=== PATIENT | female | born 1945 | race Caucasian/White ===

== ENCOUNTER 2020-04-14 11:11 | Outpatient (CLI) | payer MEDICARE, BC, SELFPAY ==
[2020-04-14 11:53] LABS: Basophils Absolute Auto 0.1 K/mm3 (0.0-0.1); Basophils Percent Auto 0.7 % (0.2-1.2); Eosinophils Absolute Auto 0.2 K/mm3 (0-0.3); Eosinophils Percent Auto 2.4 % (0-4.4); Hemoglobin 13.5 g/dL (12.0-15.0); Immature Granulocyte Absolute 0.01 K/mm3 (0.00-0.031); Immature Granulocyte Percent A 0.1 % (0-0.5); Lymphocytes Absolute Auto 2.89 K/mm3 (0.9-3.2); Lymphocytes Percent Auto 40.1 % (18.3-44.2); Mean Corpuscular HGB Conc 32.9 g/dl (32-36); Mean Corpuscular Hemoglobin 30.2 pg (26-34); Mean Corpuscular Volume 91.7 fl (80-100); Mean Platelet Volume 9.7 fl (7.4-10.4); Monocytes Absolute Auto 0.7 K/mm3 (0.1-0.6); Monocytes Percent Auto 9.4 % (2.6-8.5); Neutrophils Absolute Auto 3.4 K/mm3 (1.3-6.7); Neutrophils Percent Auto 47.3 % (45.5-73.1); Platelet Count Result 237 k/mm3 (150-375); Red Blood Count 4.47 M/mm3 (4.2-5.4); Red Cell Distribution Width 12.8 % (11.5-14.5); White Blood Count 7.2 K/mm3 (4.5-10.0)
[2020-04-14 12:02] LABS: Hemoglobin A1C 5.4 % (<5.7)
[2020-04-14 12:06] LABS: Alanine Aminotransferase 17 U/L (4-35); Albumin Level 4.2 g/dL (3.5-5.1); Alkaline Phosphatase 63 U/L (38-126); Anion Gap 5 mmol/L (8-16); Aspartate Amino Transferase 23 U/L (14-36); Bilirubin,Total 0.5 mg/dL (0.2-1.3); Blood Urea Nitrogen 25 mg/dL (7-17); Calcium 10.1 mg/dL (8.4-10.2); Carbon Dioxide 29 mmol/L (22-30); Chloride 106 mmol/L (98-107); Cholesterol 128 mg/dL (0-200); Estimated Glomerular Filt Rate 54; Glucose 98 mg/dL (65-105); HDL Direct 45 mg/dL; Potassium 4.3 mmol/L (3.4-5.0); Sodium 140 mmol/L (137-145); Triglycerides 156 mg/dL (<150)
[2020-04-14 12:52] LABS: LDL Cholesterol Direct < 30 mg/dL
[2020-04-18 10:35] LABS: Vitamin D 1,25 (OH)2 Total 47 pg/mL (18-72); Vitamin D2 1,25 (OH)2 <8 pg/mL; Vitamin D3 1,25 (OH)2 47 pg/mL
== END 2020-04-14 11:12 | disposition home or self-care (01) ==
DX: E55.9 Vitamin D deficiency, unspecified (principal); I10 Essential (primary) hypertension; E78.5 Hyperlipidemia, unspecified; R73.9 Hyperglycemia, unspecified
CPT/HCPCS: 36415; 80053; 80061; 82652; 83036; 84443; 85025

== ENCOUNTER → 2020-04-29 08:36 | Outpatient (CLI) | payer MEDICARE, BC, SELFPAY ==
--- NOTE | ~2020-04-29 | CT_ITS ---
EXAMINATION: CT sinus wo con EXAM DATE: 04/29/2020 09:01 INDICATION: Chronic frontal sinusitis. History of sinus surgery. TECHNIQUE: Spiral CT of the sinuses was acquired in the axial plane. Coronal and sagittal reformatte d images were also reviewed. The dose-length product (DLP) for this examination was 257.01 mGy-cm. Iterative reconstruction (ASIR) was used as dose reduction technique. There is no prior study for co mparison. FINDINGS: Congenitally small frontal sinuses. Ethmoidectomies and large bilateral maxillary sinus w indows. Right-sided, and possible left-sided middle turbinectomies. The sinuses are well aerated. T here is no sinus wall thickening. There is minimal nasal septal deviation. The mastoid air cells and middle ears are well aerated. External auditory canals are patent. Bilateral cataract surgery . Soft tissues are unremarkable. IMPRESSION: 1. Surgical changes. 2. Clear sinuses. Reviewed, dictated and finalized at location A.
== END ==
DX: M48.07 Spinal stenosis, lumbosacral region (principal)
CPT/HCPCS: 70486

== ENCOUNTER → 2020-12-02 15:10 | Outpatient (CLI) | payer MEDICARE, BC, SELFPAY ==
--- NOTE | ~2020-12-02 | MM_ITS ---
EXAMINATION: MM screening rosales BI w jenny HISTORY: Screening mammogram TECHNIQUE: Craniocaudal and mediolateral oblique 3-D tomosynthesis images were obtained and synthetic 2-D images were generated. CAD analysis was submitted and interpreted. COMPARISON: No prior mammogram is available for comparison at this institution. BREAST PARENCHYMAL COMPOSITION: The breasts are almost entirely fatty. FINDINGS: There is no evidence of suspicious mass, calcification, or architectural distortion to sugg est malignancy in either breast. There has been no suspicious interval change. IMPRESSION: 1. No mammographic evidence of malignancy. 2. Recommend routine screening mammography in one year. BI-RADS Category 1: Negative Reviewed, dictated and finalized at location A.
== END ==
PROVIDERS: PCP Internal Medicine; Visit Provider Internal Medicine
DX: Z12.31 Encounter for screening mammogram for malignant neoplasm of breast (principal)
CPT/HCPCS: 77063; 77067

== ENCOUNTER → 2021-02-07 15:15 | Outpatient (CLI) | payer MEDICARE, BC, SELFPAY ==
--- NOTE | ~2021-02-07 | DEXA_ITS ---
Bone Density Report Name: AYE ROMERO Age: 75 Sex: Female Ethnicity: White Date of : 1945 Indication: postmenopausal; screening for osteoporosis; height loss; Referring Provider: AmeliaJing Study: Bone densitometry was performed. Exam Date: February 07, 2021 Accession number: [id number] Bone Density: Region BMD T-score Z-score Classification AP Spine (L1-L4) 0.949 -0.9 1.6 Normal Femoral Neck (Left) 0.587 -2.4 -0.2 Osteopenia Total Hip (Left) 0.821 -1.0 0.9 Normal Femoral Neck (Right) 0.551 -2.7 -0.5 Osteoporosis Total Hip (Right) 0.746 -1.6 0.2 Osteopenia Total Hip Mean 0.784 -1.3 0.6 Osteopenia World Health Organization criteria for BMD impression classify patients as: Normal (T-score at or above -1.0), Osteopenia (T-score between -1.0 and -2.5), or Osteoporosis (T-score at or below -2.5). 10-year Fracture Risk: FRAX not reported because: Some T-score for Spine Total or Hip Total or Femoral Neck at or below -2.5 Clinical Information Provided by Patient: Has used the following medications: Vitamin D Patient maximum height was 65 Menopause Age: 41 No regular weight bearing exercise Does not regularly consume dairy products Onset of menses at age 10 Number of children 1 Impression: The patient has osteoporosis, based on the Right Femoral Neck T-score. Discussion: INCREASED RISK OF FRACTURE. BONE DENSITY IS UNDESIRABLY LOW AT ONE OR MORE SKELETAL SITES, CONSISTENT WITH POSTMENOPAUSAL OSTEOPOROSIS. This patient's lowest T-score meets the World Health Organization's (WHO) criteria for osteoporosis at one or more sites (T-score -2.5 or below). In untreated patients, the risk of osteoporotic fracture increases approximately two-fold for each 1.0 SD decrease in T-score. Low bone density is not the only risk factor for fracture; also consider factors such as patient's age, frailty or poor health, risk of falling, risk of injury, previous osteoporotic fracture, family history of osteoporosis, cigarette smoking, low body weight, etc. Not everyone with low bone mineral density has osteoporosis; osteomalacia and other metabolic bone disorders should also be considered. Patients who have osteoporosis should be evaluated for specific diseases and conditions (secondary causes) that may cause or contribute to bone loss. The [place] [employer]ocrinologists (AACE) and National Osteoporosis Foundation (NOF) recommend pharmacologic intervention for all postmenopausal women whose T-score is in this range. The patient should follow a healthful lifestyle (good nutrition with adequate calcium and vitamin D, and appropriate weight-bearing exercise). Follow-Up: Consider a repeat BMD and Vertebral Fracture Assessment (VFA) exam in 2 years or sooner if medically necessary, to reassess this patien
== END ==
PROVIDERS: PCP Internal Medicine; Visit Provider Internal Medicine
DX: Z78.0 Asymptomatic menopausal state (principal); M85.852 Other specified disorders of bone density and structure, left thigh; M85.851 Other specified disorders of bone density and structure, right thigh; M81.0 Age-related osteoporosis without current pathological fracture
CPT/HCPCS: 77080

== ENCOUNTER 2022-04-25 15:10 | Outpatient (CLI) | payer MEDICARE, BC, SELFPAY ==
--- NOTE | ~2022-04-25 | US_ITS ---
EXAMINATION: US retroperitoneal comp DATE: 04/25/2022 16:12 INDICATION: KIDNEY STONE ON LEFT SIDE TECHNIQUE: Multiple grayscale and Doppler ultrasound images of the kidneys were obtained. COMPARISON: None. FINDINGS: The right kidney is surgically absent The left kidney measures 13.1 x 6.3 x 4.6 cm. The left kidney d emonstrates normal parenchymal echogenicity. There is a cortical scarring in the left kidney. 1.1 cm echogenic shadowing focus in the left kidney lower pole. 1.2 cm simple left kidney midpole cyst. Ther e is no hydronephrosis. The bladder is normal. IMPRESSION: Status post right nephrectomy. Left cortical scarring. Left nephrolithiasis. Reviewed, dictated and finalized at location K.
== END 2022-04-25 15:11 | disposition home or self-care (01) ==
PROVIDERS: PCP Internal Medicine; Visit Provider Urology
DX: N20.0 Calculus of kidney (principal); Z90.5 Acquired absence of kidney
CPT/HCPCS: 76770

== ENCOUNTER → 2022-07-16 14:19 | Outpatient (CLI) | payer MEDICARE, BC, SELFPAY ==
--- NOTE | ~2022-07-16 | XR_ITS ---
EXAMINATION: XR lumbar spine 2-3V DATE: 07/16/2022 15:01 INDICATION: Chronic low back pain TECHNIQUE: Anteroposterior and lateral views of the lumbar spine, and cone-down lateral view of the l umbosacral junction were obtained. COMPARISON: None. FINDINGS: There are 33 degrees of lumbar dextroscoliosis. Bone alignment is normal. There is no fract ure. There is severe loss of intervertebral disc space height and L3-4. There is severe loss of inter vertebral disc space height on the left and L1-2 and L2-3 and on the right at L4-5. The vertebral bod y heights are maintained. There is moderate facet joint osteoarthritis of the lower lumbar spine. Randa gical clips in the right upper quadrant are likely from prior cholecystectomy. IMPRESSION: 1. Dextroscoliosis and moderate spondylosis of the lumbar spine. Reviewed, dictated and finalized at location F.
== END ==
PROVIDERS: PCP Internal Medicine; Visit Provider Internal Medicine
DX: M54.42 Lumbago with sciatica, left side (principal); M54.41 Lumbago with sciatica, right side; G89.29 Other chronic pain; M47.896 Other spondylosis, lumbar region
CPT/HCPCS: 72100

== ENCOUNTER 2023-05-26 13:56 | Emergency (ER) | payer MEDICARE, BC, SELFPAY ==
--- NOTE | 2023-05-26 13:58 | ED.URI ---
HPI - URI/Sore Throat General Chief Complaint: Upper Respiratory Infection Stated Complaint: Cough/Congestion/Sore Throat Time Seen by Provider: 05/26/23 14:24 Source: patient and RN notes reviewed Mode of arrival: ambulatory Limitations: no limitations History of Present Illness HPI Narrative: 69-year-old female presents with concern for cough, chest congestion, sore throat for 6 days. She has not taken any zghn-quq-ywexfan medications for her symptoms. She denies fever, body aches, reports chills. MD elicited complaint: cough Related Data Home Medications Medication Instructions Recorded Confirmed atorvastatin 20 mg tablet mg 05/26/23 buspirone 30 mg tablet mg 05/26/23 citalopram 20 mg tablet mg 05/26/23 esomeprazole magnesium 40 mg mg 05/26/23 capsule,delayed release ferrous sulfate 325 mg (65 mg mg 05/26/23 iron) tablet (FeroSul) fluticasone propionate 50 intranasal 05/26/23 mcg/actuation nasal spray,suspension losartan 100 mg tablet mg 05/26/23 mirabegron 25 mg tablet,extended mg PO 05/26/23 release 24 hr (Myrbetriq) montelukast 10 mg tablet mg 05/26/23 tafluprost (PF) 0.0015 % eye drops drp 05/26/23 in a dropperette tramadol 50 mg tablet mg 05/26/23 verapamil 120 mg tablet,extended mg PO 05/26/23 release Allergies Allergy/AdvReac Type Severity Reaction Status Date / Time acetaminophen [From Lortab] Allergy Gastrointestinal Verified 05/26/23 14:37 Upset codeine Allergy Gastrointestinal Verified 05/26/23 14:37 Upset erythromycin base Allergy Rash Verified 05/26/23 14:37 hydrocodone [From Lortab] Allergy Gastrointestinal Verified 05/26/23 14:37 Upset levofloxacin [From Levaquin] Allergy Palpitation Verified 05/26/23 14:37 s sulfamethoxazole Allergy Rash Verified 05/26/23 14:37 [From Bactrim] trimethoprim [From Bactrim] Allergy Rash Verified 05/26/23 14:37 Review of Systems Review of Systems: CONSTITUTIONAL: Reports malaise, chills. Denies sweats, or fever. EYES: Denies visual changes, redness, or discharge. ENT: Reports rhinorrhea, congestion, and sore throat. CARDIOVASCULAR: Denies chest pain, palpitations, or edema. RESPIRATORY: Reports cough. Denies dyspnea. GASTROINTESTINAL: Denies abdominal pain, nausea, vomiting, diarrhea SKIN: Denies rash or itching. MUSCULOSKELETAL: Denies myalgia. NEUROLOGIC: Denies headache. All systems reviewed & are unremarkable except as noted in HPI and below PMFSH Comments At time of signature, agree with nursing past medical, surgical, social and family history. There is no relevant family history pertinent to the presenting complaint Exam Narrative: GENERAL: Well-appearing, well-nourished, and in no acute distress. HEAD: Normocephalic EYES: PERRLA, conjunctivae clear ENT: Nares clear, turbinates edematous and erythematous, clear discharge. Mucous membranes moist. TM pearly aguilera with dull light reflex bilaterally; no tragal tenderness. Oropharynx not erythematous without lesions. Tonsils not enlarged and without exudate, no drooling, no hoarseness, no trismus, uvula midline. NECK: Supple. No lymphadenopathy CHEST: Clear to auscultation, breath sounds equal. No wheezing, rhonchi, rales, or stridor. No respiratory distress, speaks in full sentences. HEART: Regular rate and rhythm. No murmur heard. SKIN: Warm, dry, no rash. NEURO: Alert and oriented x3. PSYCH: Normal mood and affect Course Course Emergency Course: Patient is aware of diagnosis, understands and agrees to treatment plan. Anticipatory guidance given. Patient agrees to follow-up as directed and is aware of reasons to seek care at the emergency department. Portions of this record may have been created with voice recognition software Level of Care: Express Care Visit Vital Signs Vital signs: Reviewed. MDM - URI/Sore Throat MDM Narrative Medical decision making narrative: Differential diagnosis considered: Fox virus, strep p
[2023-05-26 14:06] VITALS: BP 125/67; PULSE 74; RESP 16; TEMP 36.7; O2SAT 95
== END 2023-05-26 14:41 | disposition home or self-care (01) ==
PROVIDERS: Emergency Provider Nurse Practitioner; PCP Internal Medicine
DX: J40 Bronchitis, not specified as acute or chronic (principal); Z20.822 Contact with and (suspected) exposure to COVID-19
CPT/HCPCS: 87081; 87426; 87804; 87880; 99213; G0463

== ENCOUNTER 2023-12-19 13:26 | Outpatient (CLI) | payer MEDICARE, BC, SELFPAY ==
--- NOTE | ~2023-12-19 | XR_ITS ---
XR abdomen/kub 1V 12/19/2023 13:48 Indication: Follow-up kidney stones Procedure: Follow-up kidney stone Comparison: KUB Findings: There are left renal stones. There are cholecystectomy clips. Bowel gas pattern nonobstruct rafiq. There are pelvic phleboliths. Moderate colonic fecal loading. Severe lumbar spondylosis with dex troscoliosis of the lumbar spine. Impression: 1: Left nephrolithiasis. Reviewed, dictated and finalized at location B. TENDER Impression: 1: Left nephrolithiasis.
== END 2023-12-19 13:27 | disposition home or self-care (01) ==
PROVIDERS: PCP Internal Medicine; Visit Provider Nurse Practitioner Family
DX: N20.0 Calculus of kidney (principal)
CPT/HCPCS: 74018

== ENCOUNTER 2024-01-08 14:18 | Outpatient (CLI) | payer MEDICARE, BC, SELFPAY ==
--- NOTE | ~2024-01-08 | CT_ITS ---
CORRECTED REPORT corrected order in [facility] 01/12/24 This report was recreated on 01/12/24. Original report was CHOOL TEACHER'S ASSISTANT EXAMINATION: CT abdomen wo/w con DATE: 01/08/2024 15:29 INDICATION: Benign lipomatous neoplasm of kidney. TECHNIQUE: Computed tomography (CT) of the abdomen was performed without and with 100 mL Omnipaque 350 intravenous contrast. Automated exposure control and iterative reconstruction technique were employed. The dose-length product was 922.62 mGy-cm. COMPARISON: None. FINDINGS: The visualized portions of the lung bases demonstrate mild atelectasis. No pleural effusion. The heart size is normal. No pericardial effusion. There is a large sliding hiatal hernia. The liver is normal. There are changes of cholecystectomy. The spleen, pancreas, and adrenal glands are normal. Right kidney is absent. There are cysts in left kidney measuring up to 11 mm. There is a 6 mm stone in left kidney. There is a 4.5 x 1.7 cm staghorn calculus in left kidney. There are no dilated loops of bowel. There are no pathologically enlarged lymph nodes. There is no free intraperitoneal fluid. There is lumbar dextroscoliosis and severe spondylosis. IMPRESSION: 1. Right nephrectomy. 2. Staghorn calculus in left kidney. 3. Large sliding hiatal hernia. Reviewed, dictated and finalized at location A. CHOOL TEACHER'S ASSISTANT MTDD
[2024-01-08 15:04] LABS: Estimated Glomerular Filt Rate 43
== END 2024-01-08 14:19 | disposition home or self-care (01) ==
PROVIDERS: PCP Internal Medicine
DX: D17.71 Benign lipomatous neoplasm of kidney (principal); N20.0 Calculus of kidney; K44.9 Diaphragmatic hernia without obstruction or gangrene; Z90.5 Acquired absence of kidney
CPT/HCPCS: 74170; 74178; Q9967

== ENCOUNTER 2024-02-07 11:56 | Emergency (ER) | payer MEDICARE, BC, SELFPAY ==
[2024-02-07 12:52] VITALS: BP 131/64; PULSE 69; RESP 16; TEMP 37; O2SAT 96
--- NOTE | 2024-02-07 14:23 | ED_ITS ---
HPI - URI/Sore Throat General Chief Complaint: Upper Respiratory Infection Stated Complaint: Headache/Sore Throat/Congestion Time Seen by Provider: 02/07/24 14:15 Source: patient, family, RN notes reviewed and old records reviewed Mode of arrival: ambulatory Limitations: no limitations History of Present Illness HPI Narrative: 78 year old female who presents to [facility] care with complaints of cough congestion and body aches with some low grade temp and headache for a few days. Patient 's daughter with her at bedside. Patient reports that she had a positive home covid test. Patient states that she has been taking Tylenol for her symptoms doesn't take Ibuprofen only has one kidney. Patient reports no acute dyspnea, no nausea or vomiting or any diarrhea. MD elicited complaint: cough, rhinorrhea, nasal congestion and other (body aches) Pertinent past history: other (one kidney) Onset (ago): day(s) (2-3) Severity: mild Description of mucous: clear Able to tolerate fluids by mouth: Yes Treatments prior to arrival: acetaminophen Related Data Home Medications ?Medication ?Instructions ?Recorded ?Confirmed ?Last Taken ?Type atorvastatin 20 mg tablet mg 05/26/23 Unknown History buspirone 30 mg tablet mg 05/26/23 Unknown History citalopram 20 mg tablet mg 05/26/23 Unknown History esomeprazole magnesium 40 mg mg 05/26/23 Unknown History capsule,delayed release ferrous sulfate 325 mg (65 mg mg 05/26/23 Unknown History iron) tablet (FeroSul) fluticasone propionate 50 intranasal 05/26/23 Unknown History mcg/actuation nasal spray,suspension losartan 100 mg tablet mg 05/26/23 Unknown History mirabegron 25 mg tablet,extended mg PO 05/26/23 Unknown History release 24 hr (Myrbetriq) montelukast 10 mg tablet mg 05/26/23 Unknown History tafluprost (PF) 0.0015 % eye drops drp 05/26/23 Unknown History in a dropperette tramadol 50 mg tablet mg 05/26/23 Unknown History verapamil 120 mg tablet,extended mg PO 05/26/23 Unknown History release albuterol sulfate 90 mcg/actuation inhalation 02/07/24 Unknown History aerosol inhaler (Ventolin HFA) dicyclomine 10 mg capsule mg 02/07/24 Unknown History glipizide 5 mg tablet mg 02/07/24 Unknown History mirabegron 50 mg tablet,extended mg PO 02/07/24 Unknown History release 24 hr (Myrbetriq) Allergies Allergy/AdvReac Type Severity Reaction Status Date / Time acetaminophen (From Lortab) Allergy Gastrointestinal Verified 02/07/24 13:43 Upset codeine Allergy Gastrointestinal Verified 02/07/24 13:43 Upset erythromycin base Allergy Rash Verified 02/07/24 13:43 hydrocodone (From Lortab) Allergy Gastrointestinal Verified 02/07/24 13:43 Upset levofloxacin (From Levaquin) Allergy Palpitation Verified 02/07/24 13:43 s sulfamethoxazole (From Allergy Rash Verified 02/07/24 13:43 Bactrim) trimethoprim (From Bactrim) Allergy Rash Verified 02/07/24 13:43 Review of Systems Review of Systems: CONSTITUTIONAL: Reports some malaise, chills, sweats, or fever. EYES: Denies visual changes, redness, or discharge. ENT: Reports rhinorrhea, congestion, sinus pain, no otalgia and no sore throat. CARDIOVASCULAR: Denies chest pain, palpitations, or edema. RESPIRATORY: Reports cough.? Denies dyspnea. GASTROINTESTINAL: Denies abdominal pain, nausea, vomiting, diarrhea SKIN: Denies rash or itching. MUSCULOSKELETAL:Reports myalgia. NEUROLOGIC: Reports headache. All systems reviewed & are unremarkable except as noted in HPI and below PMFSH Past Medical History Medical History (Updated 02/09/24 @ 18:24 by Jessica Rodriguez NP) CAD (coronary artery disease) Dysplasia of one kidney Diabetes GERD (gastroesophageal reflux disease) Anxiety and depression Arthritis Hyperlipidemia Hypertension Social History Social History (Updated 02/09/24 @ 18:25 by Jessica Rodriguez NP) Smoking status: Never smoker Alcohol intake: never Substance use type: does not use Gender identity (if verbalized by the patient): Female Comments At time of signature, agree with nursing past medical, surgical, social and family history. There is no relevant family history pertinent to the presenting complaint Exam Narrative: GENERAL: Well-appearing, well-nourished, and in no acute distress. HEAD: Normocephalic EYES: PERRLA, conjunctivae clear ENT: Nares clear, turbinates edematous and erythematous, clear discharge. Mucous membranes moist. TM pearly aguilera with dull light reflex bilaterally; no tragal tenderness. Oropharynx erythematous without lesions. Tonsils not enlarged and without exudate, no drooling, no hoarseness, no trismus, uvula midline.post nasal drainage post nasal discharge NECK: Supple. No lymphadenopathy CHEST: Decreased breath sounds on auscultation, breath sounds equal. No wheezing, rhonchi, rales, or stridor. No respiratory distress, speaks in full sentences.dry cough, SAO2 96% on room air HEART: Regular rate and rhythm. No murmur heard. SKIN: Warm, dry, no rash. NEURO: Alert and oriented x3. PSYCH: Normal mood and affect Course Course Emergency Course: Patient is aware of diagnosis, understands and agrees to treatment plan.? Anticipatory guidance given.? Patient agrees to follow-up as directed and is aware of reasons to seek care at the emergency department. Portions of this record may have been created with voice recognition software Level of Care: Express Care Visit Vital Signs Vital signs: Vital Signs Temperature 37.0 C 02/07/24 12:52 Pulse Rate 69 02/07/24 12:52 Respiratory Rate 16 02/07/24 12:52 Blood Pressure 131/64 02/07/24 12:52 Pulse Oximetry 96 02/07/24 12:52 Temperature 37.0 C 02/07/24 12:52 Pulse Rate 69 02/07/24 12:52 Respiratory Rate 16 02/07/24 12:52 Blood Pressure 131/64 02/07/24 12:52 Pulse Oximetry 96 02/07/24 12:52 Oxygen Delivery Room Air 02/07/24 13:20 Reviewed MDM - URI/Sore Throat MDM Narrative Medical decision making narrative: Differential diagnosis considered: Fox virus, strep pharyngitis, allergic rhinitis, upper respiratory tract infection, sinusitis, rhinosinusitis, nasopharyngitis. viral pharyngitis, otitis media, otitis externa, pneumonia, bronchitis, viral cough syndrome, viral syndrome, and influenza.? Exam findings show no acute concerns or changes; patient is non-toxic appearing and is in no distress.? Patient is appropriate for outpatient treatment and follow-up. Differential Diagnosis Differential diagnosis: Likely upper respiratory infection, viral infection, influenza and other (COVID) Medical Records Attestation: I reviewed the patient's medical records. Lab Data Attestation: I reviewed the patient's lab results. Lab results narrative: Influenza A negative, Influenza B positive, COVID antigen positive Labs: Lab Results 02/07/24 Range/Units 12:53 POC Influenza A Ag Negative (Negative) POC Influenza B Ag Positive (Negative) POC SARS CoV-2 Ag Positive (Negative) reviewed Critical Care Time Critical Care Time Critical Care Time: No Discharge Plan Discharge Clinical Impression: Influenza, COVID-19 Patient Disposition: Home, Self-Care Condition: Stable Instructions: Influenza (ED), How to Recover from COVID-19 at Home (ED) Additional Instructions: Increase fluids especially juices and water [id number] cough and cold medicine of your choice for your symptoms Zyrtec Claritin or Lavern daily include Coricidin brand decongestant Cough tablets as directed for cough--do not bite, chew or suck on--swallow whole Continue your inhaler/nebulizer as directed heat to the face 20-30 minutes 4-6 times a day for pain Salt water gargles, throat lozenges or throat sprays as desired monitor for any fevers must quarantine until you are fever free for 24 hours without use of Tylenol If your symptoms persist, change or worsen significantly before you can contact your personal physician then please, without delay, go to the emergency department for further evaluation. Follow-up with PCP in 7-10 days or sooner if needed Follow up with PCP soon in regards to your blood pressure which is elevated above threshold for referral. Blood pressure above 120/80 may indicate pre-hypertension.131/64 COVID-19 DISCHARGE The following recommendations have been made by the CDC and local Health Departments, regarding COVID-19: Those individuals with mild cases of COVID-19 can generally be discontinued from isolation, 5 days AFTER the onset of symptoms AND the resolution of fever for 24hrs (without the use of fever-reducing medications) Those individuals who were asymptomatic, and tested positive, are discontinued from isolation 10 days AFTER their first positive COVID-19 test Those individuals with SEVERE to CRITICAL illness or immunocompromised diseases may require up to 20 days of home isolation or hospitalization Majority of mild to moderate cases can be treated at home, without hospitalization or prescription medications You do not need a negative test result to return to work/school, assuming the above recommendations have been met and you are not symptomatic. At this time, return to work/school notes will not be provided. Guidelines from the local Health Department, CDC, and workplace are expected to be followed. All individuals in the household need to remained quarantined for up to 14 days if asymptomatic OR 10 days after the start of symptoms. Everyone in the home DOES NOT require testing, they are presumed positive and should quarantine as directed. Treating symptoms for mild to moderate cases may include: Tylenol, Flonase/nasal spray, OTC cold/flu medications recommended from your provider or any necessary prescription medications provided at your visit or from your PCP IF YOU TESTED NEGATIVE If you are symptomatic with reason to believe you have COVID-19, there is a high possibility your rapid test may not have detected the virus. Rapid testing is dependent on timing and viral load and may have a false- negative reading You should follow appropriate guidelines regarding quarantine, hand washing, mask wearing, and social distancing You may be sent for PCR testing as an outpatient to the [facility] site Common Adult Symptoms: Fever/chills Cough Shortness of breath Fatigue, muscle aches Headache Loss of taste/smell Sore throat, congestion, runny nose GI symptoms (nausea, vomiting, diarrhea) Common Pediatric Symptoms Cough Fever GI symptoms (diarrhea, upset stomach, nausea, vomiting) Symptoms may differ in severity however, most cases do not require hospitalization. WHEN TO SEEK ER EVALUATION/TREATMENT Severe/persistent shortness of breath or difficulty breathing Elevated, persistent fevers without resolution with fever-reducing medications Chest pain Extreme fatigue/lethargy Complications of pre-existing disease Patient Language: German Prescriptions: New benzonatate 200 mg capsule 200 mg PO TID PRN (Reason: cough) Qty: 20 0RF Rx Instructions: for acute cough No Action verapamil 120 mg tablet extended release PO atorvastatin 20 mg tablet tramadol 50 mg tablet citalopram 20 mg tablet buspirone 30 mg tablet ferrous sulfate [FeroSul] 325 mg (65 mg iron) tablet esomeprazole magnesium 40 mg capsule,delayed release(DR/EC) montelukast 10 mg tablet losartan 100 mg tablet fluticasone propionate 50 mcg/actuation spray,suspension INTRANASAL tafluprost (PF) 0.0015 % dropperette Myrbetriq 25 mg tablet extended release 24 hr PO albuterol sulfate [Ventolin HFA] 90 mcg/actuation HFA aerosol inhaler INHALATION dicyclomine 10 mg capsule glipizide 5 mg tablet mirabegron [Myrbetriq] 50 mg tablet extended release 24 hr PO Follow-up/Referrals: Amelia,MD Jing [Primary Care Provider] - Time of Disposition: 14:37 Quality Kina Coma Scale Eyes: Open Verbal: Oriented and Alert Motor: Follows Commands Kina Coma Total Score: 15
[2024-02-07 14:37] LABS: EDCOVIDSCREEN Positive (Negative); EDINFLUASCREEN Negative (Negative); EDINFLUBSCREEN Positive (Negative)
== END 2024-02-07 14:39 | disposition home or self-care (01) ==
PROVIDERS: Emergency Provider Registered Nurse; PCP Internal Medicine
DX: J11.1 Influenza due to unidentified influenza virus with other respiratory manifestations (principal); U07.1 COVID-19; I25.10 Atherosclerotic heart disease of native coronary artery without angina pectoris; E11.9 Type 2 diabetes mellitus without complications; I10 Essential (primary) hypertension; Z79.899 Other long term (current) drug therapy
CPT/HCPCS: 87426; 87804; 99213; G0463

== ENCOUNTER 2024-07-24 15:00 | Outpatient (CLI) | payer MEDICARE, MEDICAID, SELFPAY ==
--- NOTE | ~2024-07-24 | US_ITS ---
US soft tissue head and neck 07/24/2024 15:47 Indication: Elevated serum calcium Procedure: High-resolution Limited soft tissue ultrasound of the neck Comparison: No prior studies for comparison. Findings: Normal heterogeneous soft tissues without suspicious mass or fluid collection. Normal-appea ring right submandibular lymph node with fatty hilum. Impression: 1: Unremarkable neck soft tissue ultrasound. No suspicious mass is identified. Reviewed, dictated and finalized at location B. Impression: 1: Unremarkable neck soft tissue ultrasound. No suspicious mass is identified.
--- OUTSIDE RECORDS SUMMARY | 2024-07-24 15:04 | XMS_ITS | Clinical Summary ---
Author Organization [facility] [place] [address] [place] Address [address] [place] [id number] Care Team Providers Care Fire Management Officer Name Role Phone No, Physician Primary Care Provider [phone] Allergies Active Allergy Reactions Criticality Noted Date Comments Erythromycin Rash Medium 10/08/2019 Hydrocodone-Acetaminophe n Nausea & Vomiting Low 10/08/2019 Levofloxacin Palpitations Low 01/14/2020 Mushroom Vomiting Low 03/04/2024 Diarrhea Sulfamethoxazole-Trimeth oprim Rash Medium 10/08/2019 Trazodone Other (See comments) Low 05/30/2021 Weakness in LE Medications atorvastatin (LIPITOR) 20 mg tablet Take 1 tablet (20 mg total) by mouth nightly 2 Active busPIRone (BUSPAR) 30 mg tablet Take 1 tablet (30 mg total) by mouth 2 (two) times a day 3 Active cetirizine (ZyrTEC) 10 mg tablet Take 1 tablet (10 mg total) by mouth daily Active cholestyramine (QUESTRAN) 4 gram packet Take 1 packet (4 g total) by mouth 2 times daily 2 Active citalopram (CeleXA) 20 mg tablet Take 1 tablet (20 mg total) by mouth 2 (two) times a day 3 Active dicyclomine (BENTYL) 10 mg capsuleIndicatio ns:Abdominal Pain with Cramps Take 1 capsule (10 mg total) by mouth every 12 (twelve) hours [address] (NexIUM) 40 mg capsule TAKE 1 CAPSULE BY MOUTH ONCE DAILY IN THE MORNING BEFORE BREAKFAST 2 Active fluticasone propionate (FLONASE) 50 mcg/actuation nasal spray Administer 1 spray into affected nostril(s) daily 2 Active losartan (COZAAR) 100 mg tablet Take 1 tablet (100 mg total) by mouth daily 2 Active magnesium oxide (MAG-OX) 250 mg (150.8 mg elemental) tablet Take 2 tablets (500 mg total) by mouth daily Active mirabegron ER (MYRBETRIQ) 25 mg tablet extended release 24 hr Take 1 tablet (25 mg total) by mouth daily 2 Active montelukast (SINGULAIR) 10 mg tablet Take 1 tablet (10 mg total) by mouth nightly 2 Active traMADoL (ULTRAM) 50 mg tablet Take 1 tablet (50 mg total) by mouth daily as needed 3 Active verapamil ER (VERELAN) 120 mg 24 hr capsule Take 1 capsule (120 mg total) by mouth daily 2 Active albuterol HFA (PROVENTIL HFA,VENTOLIN HFA,PROAIR HFA) 90 mcg/actuation inhaler Inhale 2 puffs every 6 (six) hours as needed for wheezing 4 Active diclofenac sodium (VOLTAREN) 1 % gel Apply topically 2 (two) times a day as needed Active ferrous sulfate 325 mg (65 mg of elemental iron) tablet Take 1 tablet (325 mg total) by mouth daily 4 Active glipiZIDE (GLUCOTROL) 5 mg tablet Take 1 tablet (5 mg total) by mouth daily 4 Active vit A/vit C/vit E/zinc/copper (PRESERVISION AREDS ORAL) Take 1 capsule by mouth 2 (two) times a day Active TIMOLOL MALEATE OPHT Administer 1 drop into affected eye(s) daily 1 drop in each eye daily Active cholecalciferol (VITAMIN D-3) 2000 unit tablet Take 1 tablet (2,000 Units total) by mouth daily Active tafluprost (ZIOPTAN) 0.0015 % dropperette Administer 1 drop into both eyes nightly Active Active Problems Problem Noted Date Diagnosed Date 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 Calculus of kidney 02/25/2024 Encounters Date Type Department Care Team Description 06/19/2024 Orders Only [facility] [phone] Unknown, Notinfile from Last 3 Months Surgical History Surgery Date Site/Laterality Comments NEPHRECTOMY Right APPENDECTOMY SECTION CHOLECYSTECTOMY OTHER SURGICAL HISTORY 03/12/2024 Staged left ureteroscopy laser lithotripsy clear Hilary and stent placement Medical History Medical History Date Comments Sleep apnea wears a Bi-Pap GERD (gastroesophageal reflux disease) Irritable bowel syndrome Type 2 diabetes mellitus (HCC) Depression Anxiety Hiatal hernia Hypertension HLD (hyperlipidemia) Urinary incontinence Chronic kidney disease 3A Social History Tobacco Use Types Packs/Day Years Used Date Smoking Tobacco: Never Smokeless Tobacco: Never Tobacco Cessation:Counseling Given: Not Answered AUDIT-C Answer Date Recorded Frequency of Alcohol Consumption Not on file 03/25/2024 Q2: How many drinks containi ng alcohol do you have on a typical day when you are drinking? Patient does not drink Frequency of Binge Drinking Not on file 03/14 Personal Safety Answer Date Recorded Have you ever been in or are you currently in a harmful physical or emotional relationship or is someone making you feel afraid or unsafe? 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 Gender Identity Not on file Sexual Orientation Not on file Obstetrics History Last Filed Vital Signs Vital Sign Reading Time Taken Comments Blood Pressure 150/69 04/02/2024 2:02 PM DEPARTMENTAL SECRETARY Pulse 80 04/02/2024 2:02 PM DEPARTMENTAL SECRETARY Temperature 36.9 C (98.4 F) 04/02/2024 2:02 PM DEPARTMENTAL SECRETARY Respiratory Rate 18 04/02/2024 2:02 PM DEPARTMENTAL SECRETARY Oxygen Saturation 95% 04/02/2024 2:02 PM DEPARTMENTAL SECRETARY Inhaled Oxygen Concentration - - Weight 87.6 kg (193 lb 2 oz) 04/02/2024 10:49 AM DEPARTMENTAL SECRETARY Height 162.6 cm (5' 4) 04/02/2024 10:49 AM DEPARTMENTAL SECRETARY Body Mass Index 33.15 04/02/2024 10:49 AM DEPARTMENTAL SECRETARY Plan of Treatment Health Maintenance Due Date Last Done Comments Depression Screening 1945 Hepatitis C Screening 1945 Osteoporosis Screening-Bone Density Scan 1944 DTaP/Tdap/Td Vaccine (1 - Tdap) 10/26/1955 Hepatitis B Screening 1962 Zoster Vaccine (1 of 2) 1994 Well Visit 65+ 2009 Covid-19 Vaccine (4 - 2023-2 5 season) 2023 12/09/2020, 05/13/2020, 04/22/2020 Fall Risk Assessment 03/13/2025 03/13/2024, 03/12/19 25 Pneumococcal vaccine 65+ Completed 12/20/2021, 10/12 Influenza Vaccine Completed 12/18/2023, , 10/28/2020, Additional history exists Medical Devices Implanted Type Area Mover Helper Device Identifier Shelf Expiration Date Model / Serial / Lot [employer] Rohan Stent Ureteral Set Double Pigtail Tapered Tip Contour [id number] Hydroplus Coated [id number] - [id number] Implanted:Qty: 1 on 04/02/2024 by Bassem Narayan MD at [facility] Left: Ureter [employer] Rohan 12/01/2026 [id number] / / [id number] Explanted Type Area Mover Helper Device Identifier Shelf Expiration Date Model / Serial / Lot [employer] Rohan Contour 7fr 24cm Large Inner Lumen Low Profile Bladder Sabino Taper Latex Free [id number] - [id number] Implanted:Qty: 1 on 03/12/2024 by Bassem Narayan MD at [facility] Explanted:Qty: 1 on 04/02/2024 at [facility] Left: Ureter [employer] Rohan 08/30/2025 [id number] / / [id number] Procedures Procedure Name Priority Date/Time Associated Diagnosis Comments URINALYSIS AND REFLEX TO MICROSCOPIC Routine 06/29/2024 9:00 AM CDT COVID-19 CORONAVIRUS RNA Routine 06/29/2024 8:50 AM CDT EGFR STAT 06/29/2024 8:45 AM CDT COMPREHENSIVE METABOLIC PANEL STAT 06/29/2024 8:45 AM CDT DIFFERENTIAL AUTO STAT 06/29/2024 8:4 5 AM CDT CBC WITH AUTO DIFFERENTIAL STAT 06/29/2024 8:45 AM CDT EGFR Routine 06/26/2024 6:17 AM CDT BASIC METABOLIC PANEL Routine 06/26/2024 6:17 AM CDT DIFFERENTIAL AUTO Routine 06/26/2024 6:1 7 AM CDT CBC WITH AUTO DIFFERENTIAL Routine 06/26/2024 6:17 AM CDT EGFR Routine 06/25/2024 6:07 AM CDT COMPREHENSIVE METABOLIC PANEL Routine 06/25/2024 6:07 AM CDT BASIC METABOLIC PANEL Routine 06/25/2024 6:07 AM CDT DIFFERENTIAL AUTO Routine 06/25/2024 6:0 7 AM CDT CBC WITH AUTO DIFFERENTIAL Routine 06/25/2024 6:07 AM CDT EGFR Routine 06/24/2024 6:10 AM CDT BASIC METABOLIC PANEL Routine 06/24/2024 6:10 AM CDT VITAMIN D 25 HYDROXY Routine 06/22/2024 6:34 AM CDT EGFR Routine 06/22/2024 6:34 AM CDT BASIC METABOLIC PANEL Routine 06/22/2024 6:34 AM CDT MAGNESIUM Routine 06/22/2024 6:34 AM CDT DIFFERENTIAL AUTO Routine 06/22/2024 6:3 4 AM CDT CBC WITH AUTO DIFFERENTIAL Routine 06/22/2024 6:34 AM CDT EGFR Routine 06/19/2024 6:30 AM CDT COMPREHENSIVE METABOLIC PANEL Routine 06/19/2024 6:30 AM CDT DIFFERENTIAL AUTO Routine 06/19/2024 6:3 0 AM CDT CBC WITH AUTO DIFFERENTIAL Routine 06/19/2024 6:30 AM CDT from Last 3 Months Results * Urinalysis reflex to microscopic (06/29/2024 9:00 AM CDT) Color, ur Yellow Yellow YURI Comment:Testing performed by : [address] [address] Clarity, ur Clear Clear YURI Comment:Testing performed by : [address] [address] Specific gravity, ur 1.013 1.003 - 1.030 Y[facility] Comment:Testing performed by : [address] [address] pH, urine 5.5 YURI Comment: Interpretive Data Urine pH is affected by diet, medications, systemic acid-base disturbances, and renal tubular function. pH may affect urinary stone formation. For example, urine pH below 6.0 may help reduce the tendency for calcium phosphate stones and pH greater than 6.0 may reduce the tendency for uric acid stone formation. Source: [facility] Current Interpretive Data was last revised on 2017 Testing performed by: [address] [address] Protein, ur ql Negative Negative YURI Comment:Testing performed by : [address] [address] Glucose, ur ql Negative Negative YURI Comment:Testing performed by : [address] [address] Ketones, ur Negative Negative YURI Comment:Testing performed by : [address] [address] Bilirubin, ur Negative Negative YURI Comment:Testing performed by : [facility], [address] [place] [address]., [address] Blood, ur Negative Negative YURI WILLS Comment:Testing performed by : [address] [address] Urobilinogen, ur <2.0 <2.0 mg/dL YURI WILLS Comment:Testing performed by : [address], [place]., [address] Nitrite, ur Negative Negative YURI Comment:Testing performed by : [address], [place]., [address] Leukocyte esterase, ur Negative Negative YURI Comment:Testing performed by : [address] [address] UA reflex comment Reflex conditions for microscopic UA not met. YURI Comment:Testing performed by : [address] [address] Urine 06/29/2024 9:00 AM CDT 06/29/2024 1:22 PM CDT us Notinfile Unknown LAB URINE ORDERABLES Final Res ult YURI [address] [place] [address] * COVID-19 Coronavirus RNA Nasopharyngeal (06/29/2024 8:50 AM CDT) Pathologist [facility] COVID-19 RNA Negative Negative YURI Comment:Testing performed by : [address] [address] Nasopharyngeal 06/29/2024 8: 50 AM CDT 06/29/2024 1:22 PM CDT us Notinfile Unknown LAB MICROBIOLOGY - GENERAL ORD ERABLES Final Result YURI [address] [place] [address] * eGFR (06/29/2024 8:45 AM CDT) eGFR 65 >=60 mL/min/1. 73 m2 YURI Comment: Interpretive Data Reference Interval Normal >/= 90 mL/min/1.73m2 Mildly decreased* 60 - 89 mL/min/1.73m2 Mildly to moderately decreased 45 - 59 mL/min/1.73m2 Moderately to severely decreased 30 - 44 mL/min/1.73m2 Severely decreased 15 - 29 mL/min/1.73m2 Kidney Failure < 15 mL/min/1.73m2 *Relative to young adult level Estimated glomerular filtration rate is determined by the 2020 CKD-EPI equation recommended by the National Kidney Foundation (A Unifying Approach to GFR Estimation: Recommendations of the NKF-ASK Task Force on Reassessing the Inclusion of Race in Diagnosing Kidney Disease, JASN 2020). The CKD-EPI equation should not be used for patients with unstable renal function and has not been validated in children and those over 70. Current interpretive data was last reviewed 2020. Testing performed by: [address] [address] Blood 06/29/2024 8:45 AM CDT 06/29/2024 1:22 PM CDT us Notinfile Unknown LAB BLOOD ORDERABLES Final Res ult YURI [address] [facility] Department [place] [address] * Differential, auto (06/29/2024 8:45 AM CDT) Pathologist [facility] Neutrophil abs 4.34 1.50 - 6.50 K/cumm YURI Comment:Testing performed by : [address] [address] Imm gran abs 0.07 0.00 - 0.10 K/cumm YURI Comment:Testing performed by : [address] [address] Lymphocyte abs 2.97 0.80 - 3.30 K/cumm YURI Comment:Testing performed by : [address] [address] Monocyte abs 0.49 0.20 - 0.80 K/cumm [facility] Comment:Testing performed by : [address] [address] Eosinophil abs 0.14 0.00 - 0.50 K/cumm [facility] Comment:Testing performed by : [address], [place]., [address] Basophil abs 0.05 0.00 - 0.10 K/cumm [facility] Comment:Testing performed by : [address] [address] Neutrophil pct 53.9 % [facility] Comment: Interpretive Data Percent cell count reference ranges are not reported, since discordance with absolute values may lead to misinterpretation of CBC data. Current Interpretive Data was last revised on 2017. Testing performed by: [address] [address] Imm gran pct 0.9 % [facility] Comment: Interpretive Data Percent cell count reference ranges are not reported, since discordance with absolute values may lead to misinterpretation of CBC data. Current Interpretive Data was last revised on 2017. Testing performed by: [address] [address] Lymphocyte pct 36.8 % [facility] Comment: Interpretive Data Percent cell count reference ranges are not reported, since discordance with absolute values may lead to misinterpretation of CBC data. Current Interpretive Data was last revised on 2017. Testing performed by: [address] [address] Monocyte pct 6.1 % [facility] Comment: Interpretive Data Percent cell count reference ranges are not reported, since discordance with absolute values may lead to misinterpretation of CBC data. Current Interpretive Data was last revised on 2017. Testing performed by: [address] [address] Eosinophil pct 1.7 % [facility] Comment: Interpretive Data Percent cell count reference ranges are not reported, since discordance with absolute values may lead to misinterpretation of CBC data. Current Interpretive Data was last revised on 2017. Testing performed by: [address] [address] Basophil pct 0.6 % [facility] WILLS Comment: Interpretive Data Percent cell count reference ranges are not reported, since discordance with absolute values may lead to misinterpretation of CBC data. Current Interpretive Data was last revised on 2017. Testing performed by: [address] [address] Blood 06/29/2024 8:45 AM CDT 06/29/2024 1:22 PM CDT us Notinfile Unknown LAB BLOOD ORDERABLES Final Res ult YURI [address] [facility] Department [place] [address] * (ABNORMAL) CBC with auto differential (06/29/2024 8:45 AM CDT) WBC 8.06 3.80 - 9.90 K/cumm Y[facility] WILLS Comment:Testing performed by : [address] [address] Hgb 12.4 11.9 - 15.5 g/dL [facility] WILLS Comment:Testing performed by : [address] [address] Hct 38.8 35.6 - 45.5 % [facility] WILLS Comment:Testing performed by : [address] [address] Plt 367 150 - 400 K/cumm YURI Comment:Testing performed by : [address] [address] MPV 10.6 9.1 - 12.3 fL [facility] WILLS Comment:Testing performed by : [address] [address] RBC 4.27 3.90 - 5.20 M/cumm [facility] WILLS Comment:Testing performed by : [address] [address] MCV 90.9 81.3 - 96.4 fL [facility] WILLS Comment:Testing performed by : [address] [address] MCH 29.0 27.1 - 33.3 pg [facility] WILLS Comment:Testing performed by : [address] [address] MCHC 32.0(L) 32.3 - 35.7 g/dL [facility] WILLS Comment:Testing performed by : [address] [address] RDW CV 13.7 11.1 - 14.9 % [facility] WILLS Comment:Testing performed by : [address] [address] RDW SD 45.7 35.7 - 48.1 fL [facility] WILLS Comment:Testing performed by : [address] [address] NRBC abs 0.00 0.00 - 0.01 K/cumm [facility] WILLS Comment:Testing performed by : [address] [address] Blood 06/29/2024 8:45 AM CDT 06/29/2024 1:22 PM CDT us Notinfile Unknown LAB BLOOD ORDERABLES Final Res ult YURI [address] [facility] Department of Laboratories [place], [place] [id number] * (ABNORMAL) Comprehensive metabolic panel (06/29/2024 8:45 AM CDT) Sodium 138 135 - 145 mmol/L Y[facility] WILLS Comment:Testing performed by : [address] [address] Potassium, pl 3.9 3.3 - 4.9 mmol/L Y[facility] WILLS Comment: Hemolyzed; Potassium value may be falsely elevated by as much as 1.0 mmol/L. Suggest redraw and reanalysis. Testing performed by: [address] [address] Chloride 102 97 - 110 mmol/L [facility] WILLS Comment:Testing performed by : [address] [address] CO2 22 22 - 32 mmol/L [facility] WILLS Comment:Testing performed by : [address] [address] Anion gap 14 2 - 15 mmol/L YURI Comment:Testing performed by : [address] [address] BUN 23 6 - 25 mg/dL YURI Comment:Testing performed by : [address] [address] Creatinine 0.90 0.60 - 1.10 mg/dL YURI Comment:Testing performed by : [address] [address] Glucose 238(H) 70 - 199 mg/dL YURI Comment: Interpretive Data Fasting glucose >/= 126 mg/dl is diagnostic for diabetes. Fasting is defined as no caloric intake for at least 8 hours. Fasting glucose between 100 mg/dl to 125 mg/dl is diagnostic of prediabetes. In a patient with classic symptoms of hyperglycemia or hyperglycemic crisis, a random glucose >/= 200 mg/dl is diagnostic for diabetes. In the absence of unequivocal hyperglycemia, results should be confirmed by repeat testing. The classification and Diagnosis of Diabetes Diabetes Care 202; 46: S19-S40. Current interpretive data was last revised 2022. Testing performed by: [address] [address] Calcium 11.2(H) 8.5 - 10.3 mg/dL YURI Comment:Testing performed by : [address] [address] Bilirubin, total 0.3 0.1 - 1.2 mg/dL Y[facility] Comment:Testing performed by : [address] [address] Protein, pl 7.4 6.5 - 8.5 g/dL Y[facility] Comment:Testing performed by : [address] [address] Albumin 3.8 3.5 - 5.0 g/dL Y[facility] Comment:Testing performed by : [address] [address] Alk phos 72 40 - 130 Units/L YURI Comment:Testing performed by : [address] [address] ALT 25 7 - 45 Units/L Y[facility] WILLS Comment:Testing performed by : [address] [address] AST 23 10 - 45 Units/L [facility] WILLS Comment:Testing performed by : [address] [address] Blood 06/29/2024 8:45 AM CDT 06/29/2024 1:22 PM CDT us Notinfile Unknown LAB BLOOD ORDERABLES Final Res ult YURI WILLS [address] [facility] Department [place] [address] * (ABNORMAL) eGFR (06/26/2024 6:17 AM CDT) eGFR 51(L) >=60 mL/min/1. 73 m2 [facility] WILLS Comment: Interpretive Data Reference Interval Normal >/= 90 mL/min/1.73m2 Mildly decreased* 60 - 89 mL/min/1.73m2 Mildly to moderately decreased 45 - 59 mL/min/1.73m2 Moderately to severely decreased 30 - 44 mL/min/1.73m2 Severely decreased 15 - 29 mL/min/1.73m2 Kidney Failure < 15 mL/min/1.73m2 *Relative to young adult level Estimated glomerular filtration rate is determined by the 2020 CKD-EPI equation recommended by the National Kidney Foundation (A Unifying Approach to GFR Estimation: Recommendations of the NKF-ASK Task Force on Reassessing the Inclusion of Race in Diagnosing Kidney Disease, JASN 2020). The CKD-EPI equation should not be used for patients with unstable renal function and has not been validated in children and those over 70. Current interpretive data was last reviewed 2020. Testing performed by: [address] [address] Blood 06/26/2024 6:17 AM CDT 06/26/2024 8:28 AM CDT us Notinfile Unknown LAB BLOOD ORDERABLES Final Res ult YUIR [address] [facility] Department [place] [address] * (ABNORMAL) Differential, auto (06/26/2024 6:17 AM CDT) Neutrophil abs 5.43 1.50 - 6.50 K/cumm YURI Comment:Testing performed by : [address] [address] Imm gran abs 0.28(H) 0.00 - 0.10 K/cumm Y[facility] Comment:Testing performed by : [address] [address] Lymphocyte abs 4.08(H) 0.80 - 3.30 K/cumm Y[facility] Comment:Testing performed by : [address] [address] Monocyte abs 0.60 0.20 - 0.80 K/cumm Y[facility] Comment:Testing performed by : [address] [address] Eosinophil abs 0.18 0.00 - 0.50 K/cumm Y[facility] Comment:Testing performed by : [address] [address] Basophil abs 0.08 0.00 - 0.10 K/cumm Y[facility] Comment:Testing performed by : [address] [address] Neutrophil pct 51.0 % YURI Comment: Interpretive Data Percent cell count reference ranges are not reported, since discordance with absolute values may lead to misinterpretation of CBC data. Current Interpretive Data was last revised on 2017. Testing performed by: [address] [address] Imm gran pct 2.6 % YURI Comment: Interpretive Data Percent cell count reference ranges are not reported, since discordance with absolute values may lead to misinterpretation of CBC data. Current Interpretive Data was last revised on 2017. Testing performed by: [address] [address] Lymphocyte pct 38.3 % Y[facility] Comment: Interpretive Data Percent cell count reference ranges are not reported, since discordance with absolute values may lead to misinterpretation of CBC data. Current Interpretive Data was last revised on 2017. Testing performed by: [address] [address] Monocyte pct 5.6 % Y[facility] Comment: Interpretive Data Percent cell count reference ranges are not reported, since discordance with absolute values may lead to misinterpretation of CBC data. Current Interpretive Data was last revised on 2017. Testing performed by: [address] [address] Eosinophil pct 1.7 % YURI Comment: Interpretive Data Percent cell count reference ranges are not reported, since discordance with absolute values may lead to misinterpretation of CBC data. Current Interpretive Data was last revised on 2017. Testing performed by: [address] [address] Basophil pct 0.8 % YURI Comment: Interpretive Data Percent cell count reference ranges are not reported, since discordance with absolute values may lead to misinterpretation of CBC data. Current Interpretive Data was last revised on 2017. Testing performed by: [address] [address] Blood 06/26/2024 6:17 AM CDT 06/26/2024 8:28 AM CDT us Notinfile Unknown LAB BLOOD ORDERABLES Final Res ult YURI [address] [facility] Department of Laboratories [place], [place] [id number] * (ABNORMAL) CBC with auto differential (06/26/2024 6:17 AM CDT) WBC 10.65(H) 3.80 - 9.90 K/cumm Y[facility] Comment:Testing performed by : [address] [address] Hgb 12.4 11.9 - 15.5 g/dL Y[facility] Comment:Testing performed by : [address], [address] Hct 38.3 35.6 - 45.5 % Y[facility] Comment:Testing performed by : [address], [address] Plt 416(H) 150 - 400 K/cumm Y[facility] Comment:Testing performed by : [address], [address] MPV 10.0 9.1 - 12.3 fL Y[facility] Comment:Testing performed by : [address], [address] RBC 4.17 3.90 - 5.20 M/cumm Y[facility] Comment:Testing performed by : [address], [address] MCV 91.8 81.3 - 96.4 fL Y[facility] Comment:Testing performed by : [address], [address] MCH 29.7 27.1 - 33.3 pg Y[facility] Comment:Testing performed by : [address], [address] MCHC 32.4 32.3 - 35.7 g/dL Y[facility] Comment:Testing performed by : [address], [address] RDW CV 13.7 11.1 - 14.9 % Y[facility] Comment:Testing performed by : [address], [address] RDW SD 46.0 35.7 - 48.1 fL Y[facility] Comment:Testing performed by : [address], [address] NRBC abs 0.00 0.00 - 0.01 K/cumm YURI Comment:Testing performed by : [address], [address] Blood 06/26/2024 6:17 AM CDT 06/26/2024 8:28 AM CDT us Notinfile Unknown LAB BLOOD ORDERABLES Final Res ult YURI [address] [facility] Department [place] [address] * (ABNORMAL) Basic metabolic panel (06/26/2024 6:17 AM CDT) Sodium 140 135 - 145 mmol/L Y[facility] Comment:Testing performed by : [address] [address] Potassium, pl 4.4 3.3 - 4.9 mmol/L Y[facility] Comment:Testing performed by : [address] [address] Chloride 104 97 - 110 mmol/L Y[facility] Comment:Testing performed by : [address] [address] CO2 27 22 - 32 mmol/L Y[facility] Comment:Testing performed by : [address] [address] Anion gap 9 2 - 15 mmol/L [facility] Comment:Testing performed by : [address] [address] BUN 29(H) 6 - 25 mg/dL Y[facility] Comment:Testing performed by : [address] [address] Creatinine 1.10 0.60 - 1.10 mg/dL Y[facility] Comment:Testing performed by : [address] [address] Glucose 159 70 - 199 mg/dL YURI Comment: Interpretive Data Fasting glucose >/= 126 mg/dl is diagnostic for diabetes. Fasting is defined as no caloric intake for at least 8 hours. Fasting glucose between 100 mg/dl to 125 mg/dl is diagnostic of prediabetes. In a patient with classic symptoms of hyperglycemia or hyperglycemic crisis, a random glucose >/= 200 mg/dl is diagnostic for diabetes. In the absence of unequivocal hyperglycemia, results should be confirmed by repeat testing. The classification and Diagnosis of Diabetes Diabetes Care 2021; 46: S19-S40. Current interpretive data was last revised 2022. Testing performed by: [address] [address] Calcium 11.7(H) 8.5 - 10.3 mg/dL YURI Comment:Testing performed by : [facility], [address] [place] [address]., [address] Blood 06/26/2024 6:17 AM CDT 06/26/2024 8:28 AM CDT us Notinfile Unknown LAB BLOOD ORDERABLES Final Res ult Performing Organization Address [facility] de Phone Number [facility] [address] [facility] [place] [address] * (ABNORMAL) eGFR (06/25/2024 6:07 AM CDT) eGFR 42(L) >=60 mL/min/1. 73 m2 YURI Comment: Interpretive Data Reference Interval Normal >/= 90 mL/min/1.73m2 Mildly decreased* 60 - 89 mL/min/1.73m2 Mildly to moderately decreased 45 - 59 mL/min/1.73m2 Moderately to severely decreased 30 - 44 mL/min/1.73m2 Severely decreased 15 - 29 mL/min/1.73m2 Kidney Failure < 15 mL/min/1.73m2 *Relative to young adult level Estimated glomerular filtration rate is determined by the 2020 CKD-EPI equation recommended by the National Kidney Foundation (A Unifying Approach to GFR Estimation: Recommendations of the NKF-ASK Task Force on Reassessing the Inclusion of Race in Diagnosing Kidney Disease, JASN 2020). The CKD-EPI equation should not be used for patients with unstable renal function and has not been validated in children and those over 70. Current interpretive data was last reviewed 2020. Testing performed by: [facility], [address] [place] [address]., [address] Blood 06/25/2024 6:07 AM CDT 06/25/2024 8:38 AM CDT us Notinfile Unknown LAB BLOOD ORDERABLES Final Res ult Performing Organization Address [facility] Co de Phone Number CERNER [address] Department [place] [address] * (ABNORMAL) Differential, auto (06/25/2024 6:07 AM CDT) Neutrophil abs 5.39 1.50 - 6.50 K/cumm YURI Comment:Testing performed by : [address] [address] Imm gran abs 0.52(H) 0.00 - 0.10 K/cumm YURI Comment:Testing performed by : [address] [address] Lymphocyte abs 4.13(H) 0.80 - 3.30 K/cumm YURI Comment:Testing performed by : [address] [address] Monocyte abs 0.72 0.20 - 0.80 K/cumm YURI Comment:Testing performed by : [address] [address] Eosinophil abs 0.18 0.00 - 0.50 K/cumm YURI Comment:Testing performed by : [address] [address] Basophil abs 0.10 0.00 - 0.10 K/cumm YURI Comment:Testing performed by : [address] [address] Neutrophil pct 48.9 % [facility] Comment: Interpretive Data Percent cell count reference ranges are not reported, since discordance with absolute values may lead to misinterpretation of CBC data. Current Interpretive Data was last revised on 2017. Testing performed by: [address] [address] Imm gran pct 4.7 % [facility] Comment: Interpretive Data Percent cell count reference ranges are not reported, since discordance with absolute values may lead to misinterpretation of CBC data. Current Interpretive Data was last revised on 2017. Testing performed by: [address] [address] Lymphocyte pct 37.4 % [facility] Comment: Interpretive Data Percent cell count reference ranges are not reported, since discordance with absolute values may lead to misinterpretation of CBC data. Current Interpretive Data was last revised on 2017. Testing performed by: [address] [address] Monocyte pct 6.5 % YURI Comment: Interpretive Data Percent cell count reference ranges are not reported, since discordance with absolute values may lead to misinterpretation of CBC data. Current Interpretive Data was last revised on 2017. Testing performed by: [address] [address] Eosinophil pct 1.6 % YURI Comment: Interpretive Data Percent cell count reference ranges are not reported, since discordance with absolute values may lead to misinterpretation of CBC data. Current Interpretive Data was last revised on 2017. Testing performed by: [address] [address] Basophil pct 0.9 % YURI Comment: Interpretive Data Percent cell count reference ranges are not reported, since discordance with absolute values may lead to misinterpretation of CBC data. Current Interpretive Data was last revised on 2017. Testing performed by: [address] [address] Blood 06/25/2024 6:07 AM CDT 06/25/2024 8:38 AM CDT us Notinfile Unknown LAB BLOOD ORDERABLES Final Res ult YURI [address] [facility] Department [place] [address] * (ABNORMAL) CBC with auto differential (06/25/2024 6:07 AM CDT) WBC 11.04(H) 3.80 - 9.90 K/cumm YURI WILLS Comment:Testing performed by : [address] [address] Hgb 12.1 11.9 - 15.5 g/dL YURI WILLS Comment:Testing performed by : [address] [address] Hct 37.2 35.6 - 45.5 % YURI WILLS Comment:Testing performed by : [address] [address] Plt 396 150 - 400 K/cumm YURI Comment:Testing performed by : [address] [address] MPV 10.1 9.1 - 12.3 fL YURI Comment:Testing performed by : [address] [address] RBC 4.07 3.90 - 5.20 M/cumm YURI Comment:Testing performed by : [address] [address] MCV 91.4 81.3 - 96.4 fL YURI Comment:Testing performed by : [address] [address] MCH 29.7 27.1 - 33.3 pg YURI Comment:Testing performed by : [address] [address] MCHC 32.5 32.3 - 35.7 g/dL YURI Comment:Testing performed by : [address] [address] RDW CV 13.4 11.1 - 14.9 % YURI Comment:Testing performed by : [address] [address] RDW SD 45.2 35.7 - 48.1 fL YURI Comment:Testing performed by : [address] [address] NRBC abs 0.00 0.00 - 0.01 K/cumm YURI Comment:Testing performed by : [address] [address] Blood 06/25/2024 6:07 AM CDT 06/25/2024 8:38 AM CDT us Notinfile Unknown LAB BLOOD ORDERABLES Final Res ult YURI [facility] Department of Laboratories [place], [place] [id number] * (ABNORMAL) Comprehensive metabolic panel (06/25/2024 6:07 AM CDT) Sodium 141 135 - 145 mmol/L YURI Comment:Testing performed by : [address] [address] Potassium, pl 4.7 3.3 - 4.9 mmol/L YURI Comment:Testing performed by : [address] [address] Chloride 104 97 - 110 mmol/L YURI Comment:Testing performed by : [address] [address] CO2 29 22 - 32 mmol/L YURI Comment:Testing performed by : [address] [address] Anion gap 8 2 - 15 mmol/L YURI Comment:Testing performed by : [address] [address] BUN 32(H) 6 - 25 mg/dL YURI Comment:Testing performed by : [address] [address] Creatinine 1.30(H) 0.60 - 1.10 mg/dL YURI Comment:Testing performed by : [address] [address] Glucose 135 70 - 199 mg/dL YURI Comment: Interpretive Data Fasting glucose >/= 126 mg/dl is diagnostic for diabetes. Fasting is defined as no caloric intake for at least 8 hours. Fasting glucose between 100 mg/dl to 125 mg/dl is diagnostic of prediabetes. In a patient with classic symptoms of hyperglycemia or hyperglycemic crisis, a random glucose >/= 200 mg/dl is diagnostic for diabetes. In the absence of unequivocal hyperglycemia, results should be confirmed by repeat testing. The classification and Diagnosis of Diabetes Diabetes Care 202; 46: S19-S40. Current interpretive data was last revised 2022. Testing performed by: [address] [address] Calcium 11.8(H) 8.5 - 10.3 mg/dL YURI Comment:Testing performed by : [address] [address] Bilirubin, total 0.2 0.1 - 1.2 mg/dL YURI Comment:Testing performed by : [address] [address] Protein, pl 7.0 6.5 - 8.5 g/dL YURI Comment:Testing performed by : [address] [address] Albumin 3.6 3.5 - 5.0 g/dL YURI Comment:Testing performed by : [address] [address] Alk phos 70 40 - 130 Units/L YURI Comment:Testing performed by : [address] [address] ALT 34 7 - 45 Units/L YURI Comment:Testing performed by : [address] [address] AST 28 10 - 45 Units/L YURI Comment:Testing performed by : [address] [address] Blood 06/25/2024 6:07 AM CDT 06/25/2024 8:38 AM CDT us Notinfile Unknown LAB BLOOD ORDERABLES Final Res ult [facility] Department [place] [address] * (ABNORMAL) Basic metabolic panel (06/25/2024 6:07 AM CDT) Sodium 141 135 - 145 mmol/L YURI Comment:Testing performed by : [address] [address] Potassium, pl 4.7 3.3 - 4.9 mmol/L YURI Comment:Testing performed by : [address] [address] Chloride 104 97 - 110 mmol/L YURI Comment:Testing performed by : [address] [address] CO2 29 22 - 32 mmol/L YURI Comment:Testing performed by : [address] [address] Anion gap 8 2 - 15 mmol/L YURI Comment:Testing performed by : [address] [address] BUN 32(H) 6 - 25 mg/dL YURI Comment:Testing performed by : [address] [address] Creatinine 1.30(H) 0.60 - 1.10 mg/dL YURI Comment:Testing performed by : [address] [address] Glucose 135 70 - 199 mg/dL YURI Comment: Interpretive Data Fasting glucose >/= 126 mg/dl is diagnostic for diabetes. Fasting is defined as no caloric intake for at least 8 hours. Fasting glucose between 100 mg/dl to 125 mg/dl is diagnostic of prediabetes. In a patient with classic symptoms of hyperglycemia or hyperglycemic crisis, a random glucose >/= 200 mg/dl is diagnostic for diabetes. In the absence of unequivocal hyperglycemia, results should be confirmed by repeat testing. The classification and Diagnosis of Diabetes Diabetes Care 2021; 46: S19-S40. Current interpretive data was last revised 2022. Testing performed by: [address] [address] Calcium 11.8(H) 8.5 - 10.3 mg/dL YURI Comment:Testing performed by : [address] [address] Blood 06/25/2024 6:07 AM CDT 06/25/2024 8:38 AM CDT us Notinfile Unknown LAB BLOOD ORDERABLES Final Res ult YURI WILLS [address] [facility] Department of Laboratories [place], [place] [id number] * (ABNORMAL) eGFR (06/24/2024 6:10 AM CDT) [facility] eGFR 43(L) >=60 mL/min/1. 73 m2 YURI WILLS Comment: Interpretive Data Reference Interval Normal >/= 90 mL/min/1.73m2 Mildly decreased* 60 - 89 mL/min/1.73m2 Mildly to moderately decreased 45 - 59 mL/min/1.73m2 Moderately to severely decreased 30 - 44 mL/min/1.73m2 Severely decreased 15 - 29 mL/min/1.73m2 Kidney Failure < 15 mL/min/1.73m2 *Relative to young adult level Estimated glomerular filtration rate is determined by the 2020 CKD-EPI equation recommended by the National Kidney Foundation (A Unifying Approach to GFR Estimation: Recommendations of the NKF-ASK Task Force on Reassessing the Inclusion of Race in Diagnosing Kidney Disease, JASN 2020). The CKD-EPI equation should not be used for patients with unstable renal function and has not been validated in children and those over 70. Current interpretive data was last reviewed 2020. Testing performed by: [address] [address] Blood 06/24/2024 6:10 AM CDT 06/24/2024 8:23 AM CDT us Notinfile Unknown LAB BLOOD ORDERABLES Final Res ult YURI WILLS [address] [facility] Department of Laboratories [place], [place] [id number] * (ABNORMAL) Basic metabolic panel (06/24/2024 6:10 AM CDT) Sodium 138 135 - 145 mmol/L YURI WILLS Comment:Testing performed by : [address] [address] Potassium, pl 4.3 3.3 - 4.9 mmol/L YURI WILLS Comment:Testing performed by : [address] [address] Chloride 102 97 - 110 mmol/L YURI WILLS Comment:Testing performed by : [address] [address] CO2 26 22 - 32 mmol/L YURI WILLS Comment:Testing performed by : [address] [address] Anion gap 10 2 - 15 mmol/L YURI WILLS Comment:Testing performed by : [address] [address] BUN 30(H) 6 - 25 mg/dL YURI WILLS Comment:Testing performed by : [address] [address] Creatinine 1.26(H) 0.60 - 1.10 mg/dL YURI WILLS Comment:Testing performed by : [address] [address] Glucose 128 70 - 199 mg/dL YURI Comment: Interpretive Data Fasting glucose >/= 126 mg/dl is diagnostic for diabetes. Fasting is defined as no caloric intake for at least 8 hours. Fasting glucose between 100 mg/dl to 125 mg/dl is diagnostic of prediabetes. In a patient with classic symptoms of hyperglycemia or hyperglycemic crisis, a random glucose >/= 200 mg/dl is diagnostic for diabetes. In the absence of unequivocal hyperglycemia, results should be confirmed by repeat testing. The classification and Diagnosis of Diabetes Diabetes Care 202; 46: S19-S40. Current interpretive data was last revised 2022. Testing performed by: [address] [address] Calcium 12.4(H) 8.5 - 10.3 mg/dL YURI WILLS Comment:Testing performed by : [address] [address] Blood 06/24/2024 6:10 AM CDT 06/24/2024 8:23 AM CDT us Notinfile Unknown LAB BLOOD ORDERABLES Final Res ult YURI WILLS [address] [facility] Department [place] [address] * (ABNORMAL) eGFR (06/22/2024 6:34 AM CDT) eGFR 48(L) >=60 mL/min/1. 73 m2 YURI WILLS Comment: Interpretive Data Reference Interval Normal >/= 90 mL/min/1.73m2 Mildly decreased* 60 - 89 mL/min/1.73m2 Mildly to moderately decreased 45 - 59 mL/min/1.73m2 Moderately to severely decreased 30 - 44 mL/min/1.73m2 Severely decreased 15 - 29 mL/min/1.73m2 Kidney Failure < 15 mL/min/1.73m2 *Relative to young adult level Estimated glomerular filtration rate is determined by the 2020 CKD-EPI equation recommended by the National Kidney Foundation (A Unifying Approach to GFR Estimation: Recommendations of the NKF-ASK Task Force on Reassessing the Inclusion of Race in Diagnosing Kidney Disease, JASN 2020). The CKD-EPI equation should not be used for patients with unstable renal function and has not been validated in children and those over 70. Current interpretive data was last reviewed 2020. Testing performed by: [address] [address] Blood 06/22/2024 6:34 AM CDT 06/22/2024 8:09 AM CDT us Notinfile Unknown LAB BLOOD ORDERABLES Final Res ult YURI [address] [facility] Department [place] [address] * (ABNORMAL) Differential, auto (06/22/2024 6:34 AM CDT) Neutrophil abs 4.82 1.50 - 6.50 K/cumm YURI Comment:Testing performed by : [address] [address] Imm gran abs 0.59(H) 0.00 - 0.10 K/cumm YURI Comment:Testing performed by : [address] [address] Lymphocyte abs 3.15 0.80 - 3.30 K/cumm YURI Comment:Testing performed by : [address] [address] Monocyte abs 0.61 0.20 - 0.80 K/cumm YURI Comment:Testing performed by : [address] [address] Eosinophil abs 0.17 0.00 - 0.50 K/cumm YURI Comment:Testing performed by : [address] [address] Basophil abs 0.08 0.00 - 0.10 K/cumm CERJIMY Comment:Testing performed by : [address] [address] Neutrophil pct 51.2 % [facility] Comment: Interpretive Data Percent cell count reference ranges are not reported, since discordance with absolute values may lead to misinterpretation of CBC data. Current Interpretive Data was last revised on 2017. Testing performed by: [address] [address] Imm gran pct 6.3 % [facility] Comment: Interpretive Data Percent cell count reference ranges are not reported, since discordance with absolute values may lead to misinterpretation of CBC data. Current Interpretive Data was last revised on 2017. Testing performed by: [address] [address] Lymphocyte pct 33.4 % [facility] Comment: Interpretive Data Percent cell count reference ranges are not reported, since discordance with absolute values may lead to misinterpretation of CBC data. Current Interpretive Data was last revised on 2017. Testing performed by: [address] [address] Monocyte pct 6.5 % [facility] Comment: Interpretive Data Percent cell count reference ranges are not reported, since discordance with absolute values may lead to misinterpretation of CBC data. Current Interpretive Data was last revised on 2017. Testing performed by: [address] [address] Eosinophil pct 1.8 % CERNER Comment: Interpretive Data Percent cell count reference ranges are not reported, since discordance with absolute values may lead to misinterpretation of CBC data. Current Interpretive Data was last revised on 2017. Testing performed by: [address] [address] Basophil pct 0.8 % [facility] Comment: Interpretive Data Percent cell count reference ranges are not reported, since discordance with absolute values may lead to misinterpretation of CBC data. Current Interpretive Data was last revised on 2017. Testing performed by: [address] [address] Blood 06/22/2024 6:34 AM CDT 06/22/2024 8:09 AM CDT us Notinfile Unknown LAB BLOOD ORDERABLES Final Res ult YURI [address] [facility] Department [place] [address] * (ABNORMAL) CBC with auto differential (06/22/2024 6:34 AM CDT) WBC 9.42 3.80 - 9.90 K/cumm YURI WILLS Comment:Testing performed by : [address] [address] Hgb 11.7(L) 11.9 - 15.5 g/dL YURI Comment:Testing performed by : [address] [address] Hct 35.9 35.6 - 45.5 % YURI Comment:Testing performed by : [address] [address] Plt 367 150 - 400 K/cumm YURI Comment:Testing performed by : [address] [address] MPV 9.9 9.1 - 12.3 fL YURI Comment:Testing performed by : [address] [address] RBC 3.95 3.90 - 5.20 M/cumm YURI WILLS Comment:Testing performed by : [address] [address] MCV 90.9 81.3 - 96.4 fL YURI WILLS Comment:Testing performed by : [address] [address] MCH 29.6 27.1 - 33.3 pg YURI WILLS Comment:Testing performed by : [address] [address] MCHC 32.6 32.3 - 35.7 g/dL YURI WILLS Comment:Testing performed by : [address] [address] RDW CV 13.3 11.1 - 14.9 % YURI WILLS Comment:Testing performed by : [address] [address] RDW SD 43.8 35.7 - 48.1 fL YURI WILLS Comment:Testing performed by : [address] [address] NRBC abs 0.00 0.00 - 0.01 K/cumm YURI WILLS Comment:Testing performed by : [address] [address] Blood 06/22/2024 6:34 AM CDT 06/22/2024 8:09 AM CDT us Notinfile Unknown LAB BLOOD ORDERABLES Final Res ult Performing Organization Address [facility] Co de Phone Number [address] [place] [address] * Vitamin D 25 hydroxy (06/22/2024 6:34 AM CDT) Vitamin D 25-OH 64.0 30.0 - 80.0 ng/mL YURI Blood 06/22/2024 6:34 AM CDT 06/22/2024 10:32 AM CDT us Notinfile Unknown LAB BLOOD ORDERABLES Final Res ult Performing Organization Address City/State/[facility] Co de Phone Number [address] [place] [address] * Magnesium (06/22/2024 6:34 AM CDT) Magnesium 1.7 1.4 - 2.5 mg/dL YURI WILLS Comment:Testing performed by : [address] [address] Blood 06/22/2024 6:34 AM CDT 06/22/2024 8:09 AM CDT us Notinfile Unknown LAB BLOOD ORDERABLES Final Res ult [facility] [address] [facility] Department [place] [address] * (ABNORMAL) Basic metabolic panel (06/22/2024 6:34 AM CDT) Sodium 140 135 - 145 mmol/L YURI Comment:Testing performed by : [address] [address] Potassium, pl 4.1 3.3 - 4.9 mmol/L YURI Comment:Testing performed by : [address] [address] Chloride 105 97 - 110 mmol/L YURI Comment:Testing performed by : [address] [address] CO2 26 22 - 32 mmol/L YURI Comment:Testing performed by : [address] [address] Anion gap 9 2 - 15 mmol/L YURI Comment:Testing performed by : [address] [address] BUN 22 6 - 25 mg/dL YURI Comment:Testing performed by : [address] [address] Creatinine 1.15(H) 0.60 - 1.10 mg/dL YURI Comment:Testing performed by : [address] [address] Glucose 128 70 - 199 mg/dL YURI Comment: Interpretive Data Fasting glucose >/= 126 mg/dl is diagnostic for diabetes. Fasting is defined as no caloric intake for at least 8 hours. Fasting glucose between 100 mg/dl to 125 mg/dl is diagnostic of prediabetes. In a patient with classic symptoms of hyperglycemia or hyperglycemic crisis, a random glucose >/= 200 mg/dl is diagnostic for diabetes. In the absence of unequivocal hyperglycemia, results should be confirmed by repeat testing. The classification and Diagnosis of Diabetes Diabetes Care 202; 46: S19-S40. Current interpretive data was last revised 2022. Testing performed by: [facility], [address] [place] [address]., [address] Calcium 11.1(H) 8.5 - 10.3 mg/dL YURI WILLS Comment:Testing performed by : [address] [address] Blood 06/22/2024 6:34 AM CDT 06/22/2024 8:09 AM CDT us Notinfile Unknown LAB BLOOD ORDERABLES Final Res ult YURI WILLS [address] [facility] Department [place] [address] * (ABNORMAL) eGFR (06/19/2024 6:30 AM CDT) eGFR 53(L) >=60 mL/min/1. 73 m2 YURI WILLS Comment: Interpretive Data Reference Interval Normal >/= 90 mL/min/1.73m2 Mildly decreased* 60 - 89 mL/min/1.73m2 Mildly to moderately decreased 45 - 59 mL/min/1.73m2 Moderately to severely decreased 30 - 44 mL/min/1.73m2 Severely decreased 15 - 29 mL/min/1.73m2 Kidney Failure < 15 mL/min/1.73m2 *Relative to young adult level Estimated glomerular filtration rate is determined by the 2020 CKD-EPI equation recommended by the National Kidney Foundation (A Unifying Approach to GFR Estimation: Recommendations of the NKF-ASK Task Force on Reassessing the Inclusion of Race in Diagnosing Kidney Disease, JASN 2020). The CKD-EPI equation should not be used for patients with unstable renal function and has not been validated in children and those over 70. Current interpretive data was last reviewed 2020. Testing performed by: [address] [address] Blood 06/19/2024 6:30 AM CDT 06/19/2024 8:31 AM CDT us Notinfile Unknown LAB BLOOD ORDERABLES Final Res ult YURI [address] [facility] Department [place] [address] * (ABNORMAL) Differential, auto (06/19/2024 6:30 AM CDT) Neutrophil abs 5.74 1.50 - 6.50 K/cumm YURI Comment:Testing performed by : [address] [address] Imm gran abs 0.10 0.00 - 0.10 K/cumm YURI Comment:Testing performed by : [address] [address] Lymphocyte abs 2.83 0.80 - 3.30 K/cumm YURI Comment:Testing performed by : [address] [address] Monocyte abs 1.06(H) 0.20 - 0.80 K/cumm YURI Comment:Testing performed by : [address] [address] Eosinophil abs 0.16 0.00 - 0.50 K/cumm YURI Comment:Testing performed by : [address] [address] Basophil abs 0.04 0.00 - 0.10 K/cumm YURI Comment:Testing performed by : [address] [address] Neutrophil pct 57.8 % YURI Comment: Interpretive Data Percent cell count reference ranges are not reported, since discordance with absolute values may lead to misinterpretation of CBC data. Current Interpretive Data was last revised on 2017. Testing performed by: [address] [address] Imm gran pct 1.0 % YURI Comment: Interpretive Data Percent cell count reference ranges are not reported, since discordance with absolute values may lead to misinterpretation of CBC data. Current Interpretive Data was last revised on 2017. Testing performed by: [address] [address] Lymphocyte pct 28.5 % YURI Comment: Interpretive Data Percent cell count reference ranges are not reported, since discordance with absolute values may lead to misinterpretation of CBC data. Current Interpretive Data was last revised on 2017. Testing performed by: [address] [address] Monocyte pct 10.7 % YURI Comment: Interpretive Data Percent cell count reference ranges are not reported, since discordance with absolute values may lead to misinterpretation of CBC data. Current Interpretive Data was last revised on 2017. Testing performed by: [address] [address] Eosinophil pct 1.6 % YURI Comment: Interpretive Data Percent cell count reference ranges are not reported, since discordance with absolute values may lead to misinterpretation of CBC data. Current Interpretive Data was last revised on 2017. Testing performed by: [address] [address] Basophil pct 0.4 % YURI Comment: Interpretive Data Percent cell count reference ranges are not reported, since discordance with absolute values may lead to misinterpretation of CBC data. Current Interpretive Data was last revised on 2017. Testing performed by: [address] [address] Blood 06/19/2024 6:30 AM CDT 06/19/2024 8:31 AM CDT us Notinfile Unknown LAB BLOOD ORDERABLES Final Res ult YURI WILLS [address] [facility] Department [place] [address] * (ABNORMAL) CBC with auto differential (06/19/2024 6:30 AM CDT) WBC 9.93(H) 3.80 - 9.90 K/cumm YURI WILLS Comment:Testing performed by : [address] [place]., [address] Hgb 11.0(L) 11.9 - 15.5 g/dL YURI Comment:Testing performed by : [address] [address] Hct 34.0(L) 35.6 - 45.5 % YURI Comment:Testing performed by : [address] [address] Plt 262 150 - 400 K/cumm YURI Comment:Testing performed by : [address], [address] MPV 10.2 9.1 - 12.3 fL YURI Comment:Testing performed by : [address], [address] RBC 3.74(L) 3.90 - 5.20 M/cumm YURI Comment:Testing performed by : [address], [address] MCV 90.9 81.3 - 96.4 fL YURI Comment:Testing performed by : [address], [address] MCH 29.4 27.1 - 33.3 pg YURI Comment:Testing performed by : [address] [address] MCHC 32.4 32.3 - 35.7 g/dL YURI Comment:Testing performed by : [address], [address] RDW CV 13.2 11.1 - 14.9 % YURI Comment:Testing performed by : [address], [address] RDW SD 44.6 35.7 - 48.1 fL YURI Comment:Testing performed by : [address] [address] NRBC abs 0.00 0.00 - 0.01 K/cumm YURI Comment:Testing performed by : [address], [address] Blood 06/19/2024 6:30 AM CDT 06/19/2024 8:31 AM CDT us Notinfile Unknown LAB BLOOD ORDERABLES Final Res ult YURI [address] [facility] Department [place] [address] * (ABNORMAL) Comprehensive metabolic panel (06/19/2024 6:30 AM CDT) Sodium 140 135 - 145 mmol/L YURI Comment:Testing performed by : [address] [address] Potassium, pl 3.7 3.3 - 4.9 mmol/L YURI Comment:Testing performed by : [address] [address] Chloride 104 97 - 110 mmol/L YURI Comment:Testing performed by : [address] [address] CO2 26 22 - 32 mmol/L YURI Comment:Testing performed by : [address] [address] Anion gap 10 2 - 15 mmol/L YURI Comment:Testing performed by : [address] [address] BUN 24 6 - 25 mg/dL YURI Comment:Testing performed by : [address] [address] Creatinine 1.06 0.60 - 1.10 mg/dL YURI Comment:Testing performed by : [address] [address] Glucose 123 70 - 199 mg/dL YURI Comment: Interpretive Data Fasting glucose >/= 126 mg/dl is diagnostic for diabetes. Fasting is defined as no caloric intake for at least 8 hours. Fasting glucose between 100 mg/dl to 125 mg/dl is diagnostic of prediabetes. In a patient with classic symptoms of hyperglycemia or hyperglycemic crisis, a random glucose >/= 200 mg/dl is diagnostic for diabetes. In the absence of unequivocal hyperglycemia, results should be confirmed by repeat testing. The classification and Diagnosis of Diabetes Diabetes Care 202; 46: S19-S40. Current interpretive data was last revised 2022. Testing performed by: [facility], [address] [place] [address]., [address] Calcium 11.2(H) 8.5 - 10.3 mg/dL YURI Comment:Testing performed by : [address] [address] Bilirubin, total 0.4 0.1 - 1.2 mg/dL YURI Comment:Testing performed by : [address] [address] Protein, pl 7.1 6.5 - 8.5 g/dL YURI Comment:Testing performed by : [address] [address] Albumin 3.4(L) 3.5 - 5.0 g/dL YURI Comment:Testing performed by : [address] [address] Alk phos 73 40 - 130 Units/L YURI Comment:Testing performed by : [address] [address] ALT 16 7 - 45 Units/L YURI Comment:Testing performed by : [address] [address] AST 22 10 - 45 Units/L YURI Comment:Testing performed by : [address] [address] Blood 06/19/2024 6:30 AM CDT 06/19/2024 8:31 AM CDT us Notinfile Unknown LAB BLOOD ORDERABLES Final Res ult YURI [address] [facility] Department [place] [address] from Last 3 Months Insurance MEDICARE BLUE ACCESS OOS MEDICARE BLUE ACCESS OOS IDPA Care Teams Fire Management Officer Relationship 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
--- OUTSIDE RECORDS SUMMARY | 2024-07-24 15:04 | XMS_ITS | Continuity of Care Document ---
Author Organization [facility] Address [address] [place] [address] Phone Care Team Providers Care Web Editor Name Role Phone Robbin Pratt MD Unavailable Unavailable Allergies, Adverse Reactions, Alerts Substance Reaction Status Criticality HYDROCODONE BITARTRATE Unknown Active No In formation CODEINE PHOSPHATE Unknown Active No Informa tion acetaminophen Unknown Active No Information levofloxacin Unknown Active No Information trimethoprim Rash Active No Information sulfamethoxazole Rash Active No Informat ion erythromycin base Rash Active No Informa tion Medications Medication Instructions Dosage Effective Dates (start - stop) Status Comments Diovan 80 mg tablet take 1 tablet by oral route every day 80 MG - Active Flonase 50 mcg/actuation nasal spray,suspension inhale 1 spray by intranasal route every day in each nostril - Active nifedipine ER 60 mg tablet,extended release take 1 tablet by oral route every day 60 MG - Active Nexium 40 mg capsule,delayed release take 1 capsule by oral route every day 40 MG - Active buspirone 15 mg tablet take 1 tablet by oral route 2 times every day 15 MG - Active Xalatan 0.005 % eye drops instill 1 drop by ophthalmic route every day into affected eye(s) in the evening 1.00 drop - Active Singulair 10 mg tablet take 1 tablet by oral route every day in the evening 10 MG - Active LASIX (unknown strength) take 1 tablet by oral route every day Not Available - Active citalopram 40 mg tablet take 1 tablet by oral route every day 40 MG - Active magnesium oxide 420 mg tablet take orally twice daily - Active Estrace 1 mg tablet take 1 tablet by oral route every day 1 MG - Active polyethylene glycol 3350 17 gram/dose oral powder take (17G) by oral route every day mixed with 8 oz. water, juice, soda, coffee or tea - Active potassium chloride ER 10 mEq capsule,extended release take 2 capsule by oral route every day with food 20 MEQ - Active Zantac 150 mg tablet take 1 tablet by oral route 2 times every day - Active meclizine 25 mg tablet take 1 tablet by oral route 3 times every day as needed 25 MG - No Longer Active Procedures Procedure Date KENALOG 40 (TRIAMCINOLONE) PER 10 MG Feb Lidocaine injection INJECT/ ASP MAJOR JOINT/BURS A . SHLDR, HIP, KNEE, W/OUT ULTRASOUND GUIDANCE Office Visit, No Charge KENALOG 40 (TRIAMCINOLONE) PER 10 MG Sep INJECT/ ASP MAJOR JOINT/BURS A . SHLDR, HIP, KNEE, W/OUT ULTRASOUND GUIDANCE Office Visit, No Charge OFFICE/OUTPATIENT VISIT, EST KENALOG 40 (TRIAMCINOLONE) PER 10 MG May INJECT/ ASP MAJOR JOINT/BURS A . SHLDR, HIP, KNEE, W/OUT ULTRASOUND GUIDANCE XRAY SHOULDER, MIN 2 VIEW OFFICE/OUTPATIENT VISIT, EST XRAY KNEE JOHN, STAND/AP KENALOG 10 (TRIAMCINOLONE) PER10 MG MARCAINE INJECT/ ASP MAJOR JOINT/BURS A . SHLDR, HIP, KNEE, W/OUT ULTRASOUND GUIDANCE OFFICE/OUTPATIENT VISIT, EST INJECT/ ASP MAJOR JOINT/BURS A . SHLDR, HIP, KNEE, W/OUT ULTRASOUND GUIDANCE XRAY KNEE, 1-2 VIEWS KENALOG 40 (TRIAMCINOLONE) PER 10 MG Sep OFFICE/OUTPATIENT VISIT, EST XRAY SHOULDER, MIN 2 VIEW OFFICE/OUTPATIENT VISIT, NEW ULTRASOUND EXTREMITY XRAY SHOULDER, MIN 2 VIEW Advance Directives Directive Yes / No Effective Date File Name No Information Encounters Encounter Description Practice Location Reason(s) For Visit Diagnoses Date Provider Providers Copied on Encounter [facility], [address] [place] [address], [address], [place] tel:[phone] [facility] right hip pain (chief complaint) Greater trochanteric bursitis of right hip 7 Tondeon Siegel. [address] [facility], [facility] [address], [place], [place], [id number], [place]. tel:[phone] Referring Provider: Twila Flores, [address], [place], [address]. tel:[phone] [facility], [address] [place] [address], [address], [place] tel:[phone] [place] [address] right hip pain (chief complaint) Greater trochanteric bursitis of right hip 6 Tonne Robbin. [address] [facility], [address], [place], [place], [id number], [place]. tel:[phone] Referring Provider: Twila Flores, [address], [place], [address]. tel:[phone] OFFICE/OUTPA TIENT VISIT, EST [facility], [address] [place] [address], [address], [place] tel:[phone] [place] [address] left shoulder pain (chief complaint) Impingement syndrome of left shoulderIncom plete tear of left rotator cuffOsteoarth ritis of left acromioclavic ular joint 6 No Information Referring Provider: Twila Flores, [address], [place], [address]. tel:[phone] [facility], [address] [place] [address], [address], [place] tel:[phone] [place] [address] right hip pain (chief complaint) Greater trochanteric bursitis of right hip 6 [place] Siegel. [address] [facility], [facility] [address], [place], [id number], [place]. tel:[phone] Referring Provider: Twila Flores, [address], [place], [address]. tel:[phone] OFFICE/OUTPA TIENT VISIT, [facility], [address] [place] [address], [address], tel:[phone] [facility] left shoulder pain (chief complaint) Left shoulder pain May-0 6 No Information Referring Provider: Twila Flores, [address], [place], [address]. tel:[phone] OFFICE/OUTPA TIENT VISIT, [facility], [address] [place] [address], [address], [place] tel:[phone] [facility] right knee pain (chief complaint) right hip pain (chief complaint) Localized osteoarthrosi s, lower legGreater trochanteric bursitis of right hip 5 Tondeon Siegel. [address] [facility], [facility] [address], [id number], [place]. tel:[phone] Referring Provider: Twila Flores, [address], [place], [address]. tel:[phone] OFFICE/OUTPA TIENT VISIT, [facility], [address] [place] [address], [address], [place] tel:[phone] [facility] left shoulder pain (chief complaint) ObesityShould er pain 4 No Information Referring Provider: Twila Flores, [address], [place], [address]. tel:[phone] Family History Family Member Type Diagnosis Age At Onset Brother Problem (finding) Diabetes mellitus Father Problem (finding) coronary arterioscleros is Mother Problem (finding) hypertension Father Problem (finding) stroke Father Problem (finding) Diabetes mellitus Mother Problem (finding) cancer of colon (Cause Of ) Immunizations Vaccine Date Status Comments Influenza, seasonal, intrade rmal, preservative free(Fluzone Intraderm (PF) 27 mcg/0.1 mL Intradermal Syringe) administered Source: Other Provi tara Pneumo (2 yrs or older) (PPV23) administe red Source: Other Provider Payers Payer name Insurance type Covered republican ID Authoriza tion(s) Medicare [place] [employer] [id number] [facility] P BL [id number] Social History Type Description Quantity Date Captured Comments Alcohol Use Details No Caffeine Use Details Unknown Tobacco Use Status Never smoked tobacco 2016 Smoking Status Never smoker Sex Female Vital Signs Date / Time: Height Weight BMI Pulse Rate Blood Pressure Temperature Respiratory Rate Body Surface Area Head Circumference Head Circ. Percentile Wt./Fede. Percentile BMI percentile Pulse Ox Inhaled Ox 10:26 AM 64.00 in 83.915 kg (185.00 lbs) 31.7 6 kg/m eter (2) Chief Complaint And Reason For Visit From encounter dated '03/13/2016 10:10'. right hip pain (chief complaint). Description: Katalina Clark is a 70 year old female. She presentswith pain on the right side. The symptoms occur constantly. Currently the patient states that the symptoms are moderate-severe. The pain is described as discomforting. The symptoms are aggravated by walking. Reason For Referral Reason For Referral No Information Plan Of Treatment Date Type Action Status Goal Dietary manageme nt education, guidance, and counseling completed Referral Ordered: MRI JOINT UPR EXTREM W/O DYE (Shoulder/Elbow/Wrist/Scapula) LT shoulder Appointment date/timeframe: 05/25/2015 ordered Future Order: Radiology Order Kn ees X-ray, Bilateral (Standing, AP view) ([id number]), Sent on: Sent Future Order: Radiology Order Sh oulder X-ray; Complete (2+ views) ([id number]), Sent on: Sent History Of Present Illness Encounter Date Complaint History Of Prese nt Illness right hip pain Katalina Clark i s a 70 year old female. She presents with pain on the right side. The symptoms occur constantly. Currently the patient states that the symptoms are moderate-severe. The pain is described as discomforting. The symptoms are aggravated by walking. right hip pain Ms Clark is a 69 year old female who complains of right hip pain. She presents with pain on the right side. The symptoms occur intermittently. She rates her current pain as 6/10. left shoulder pain Katalina murillo is a 69 year old female. She presents with pain on the left side. The symptoms occur intermittently. Currently the patient states that the symptoms are severe. The pain is described as sharp. She rates her current pain as 3/10. The patient has had a previous MRI. The MRI was performed at [facility] on 05/25/2015 of the left shoulder. Katalina is here today for her MRI results. right hip pain Katalina Clark i s a 69 year old female. She presents with pain on the right side. The symptoms occur constantly. Currently the patient states that the symptoms are moderate. She rates her current pain as 5/10. She has been treated with a corticosteroid injection on the right side. She reports marked improvement. left shoulder pain Katalina murillo is a 69 year old female. She presents with pain and stiffness on the left side. Patient states her shoulder began hurting on 04/22/2015. Patient denies acute injury to the shoulder. The symptoms occur intermittently. Currently the patient states that the symptoms are severe. The pain is described as sharp. The patient is experiencing pain in the following locations: neck, superior shoulder, posterior shoulder, anterior shoulder, upper arm and between neck and shoulder on the left side. She rates her worst pain as 10/10. She rates her current pain as 4/10. The symptoms are aggravated by reaching overhead and lifting away from the body. Katalina states that the symptoms are relieved by heat and ibuprofen and Tylenol. The patient has had a previous x-ray. Prior NSAIDs include ibuprofen. Prior pain medications include Tylenol. Patient states she saw Dr. Twila Soto, x-rays were obtained, and patient was referred for further evaluation and treatment. Patient has not had any pertinent therapy for this condition. right knee pain Katalina Clark i s a 68 year old female. She presents with pain on the right side. The symptoms occur constantly. Currently the patient states that the symptoms are moderate. The pain is described as sharp. She rates her best pain as 2/10. She rates her worst pain as 9/10. The symptoms are aggravated by ascending stairs and descending stairs. Katalina states that the symptoms are relieved by NSAIDs and sleeping on her stomach. The patient has had a previous x-ray. right hip pain She presents wit h pain on the right side. The symptoms occur constantly. Currently the patient states that the symptoms are moderate. The pain is described as shooting. The symptoms are aggravated by descending stairs and ascending stairs. Katalina states that the symptoms are relieved by NSAIDs. The patient has had a previous x-ray. left shoulder pain Ms Eduardo blake s a 67 year old female who complains of left shoulder pain. She presents with pain on the left side. She states that the symptoms began on 07/01/2012. The symptoms occur intermittently. The problem is worse. Currently the patient states that the symptoms are moderate-severe. The pain is described as sharp. The symptoms occur at night. The patient indicates that the pain is located in the entire shoulder on the left side. She rates her best pain as 1/10. She rates her worst pain as 10/10. She rates her current pain as 4/10. The pain radiates from the shoulder on the left side then to the upper arm, hand and neck on the left side. The symptoms are aggravated by daily activities. Juliane states that the symptoms are relieved by heat and nsaids. She denies having any associated symptoms. The patient has had a previous x-ray. Prior NSAIDs include aleve. She indicates the injury occurred type of treatment she has had no previous treatment. Patient has not had previous therapy. Patient has had no prior surgeries. There were no previous episodes. She experienced no previous injury. Functional Status Date Functional Assessmen t Pain Score 8/10 Instructions Date Instruction Additional Infor claire Dietary management e ducation, guidance, and counseling Related to Obesity, unspecified Assessments Type Assessment Date assessment Greater trochanteric bursitis of right hip Patient Care Teams Name Effective Dates (start - stop) Status Members No Information
--- OUTSIDE RECORDS SUMMARY | 2024-07-24 15:04 | XMS_ITS | Clinical Summary ---
Author Organization [facility] Address [address] [place] [id number] Care Team Providers Care Echo Vasc Tech Name Role Phone Unavailable Primary Care Provider Unavailabl e Immunizations Immunization Administration Dates Next Due Covid-19, Mrna, Lnp-s, Pf, 30 Mcg/0.3 Ml Dose (P fizer) 12/09/2020 Social History Tobacco Use Types Packs/Day Years Used Date Smoking Tobacco: Never Assessed Comments Unknown Sex and Gender Information Value Date Recorded Sex Assigned at Not on file Legal Sex Female 1:21 PM CDT Gender Identity Not on file Sexual Orientation Not on file Plan of Treatment Health Maintenance Due Date Last Done Comments TdaP Immunization 1945 Zoster Immunization (1 of 2) 1994 Respiratory Syncytial Virus (RSV) Immunization (Adult) (1 - 1-dose 75+ series) 10/26/2019 Pneumococcal Immunization (5 0+ years) (2 of 2 - PCV) 10/28/2021 10/28/2020 SARS-COV-2 Immunization (4 - season) 2023 12/09/2020, 05/13/2020, 04/22/2020 Influenza Immunization (Seas on Ended) 2024 10/28/2020, 11/23/2019 Hepatitis C Virus (HCV) Screening Completed 10/28/2020 Hepatitis B Immunization Aged Out No longer eligible based on patient's age to complete this topic Human Papillomavirus (HPV) Immunization Aged Out No longer eligible b ased on patient's age to complete this topic Meningococcal Immunization (ACWY) Aged Out No longer eligible b ased on patient's age to complete this topic Rotavirus Immunization Aged Out No lo nger eligible based on patient's age to complete this topic
--- OUTSIDE RECORDS SUMMARY | 2024-07-24 15:04 | XMS_ITS | Referral Summary ---
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 Calculus of kidney 02/25/2024 Social History Tobacco Use Types Packs/Day Years [...] on file Legal Sex Female 10:27 AM [employer] Gender Identity Not on file Sexual Orientation Not on file Last Filed Vital Signs Vital Sign Reading Time Taken Comments Blood Pressure 150/69 04/02/2024 2:02 PM [employer] Pulse 80 04/02/2024 2:02 PM [employer] Temperature 36.9 C (98.4 F) 04/02/2024 2:02 PM [employer] Respiratory Rate 18 04/02/2024 2:02 PM [employer] Oxygen Saturation 95% 04/02/2024 2:02 PM [employer] Inhaled Oxygen Concentration - - Weight 87.6 kg (193 lb 2 oz) 04/02/2024 10:49 AM [employer] Height 162.6 cm (5' 4) 04/02/2024 10:49 AM [employer] Body Mass Index 33.15 04/02/2024 10:49 AM [employer] WORK[employer] Plan of Treatment Not on file Medical Devices Implanted Type Area Mechanical Engineering Advisor Device Identifier Shelf Expiration Date Model / Serial / Lot [employer] Stent Ureteral Set Double Pigtail Tapered Tip Contour [id number] Hydroplus Coated [id number] - [id number] Implanted:Qty: 1 on 04/02/2024 by Bassem Narayan MD at [facility] Left: Ureter [employer]an 12/01/2026 [id number] / / [id number] Explanted Type Area Mechanical Engineering Advisor Device Identifier Shelf Expiration Date Model / Serial / Lot [employer] Rohan Contour 7fr 24cm Large Inner Lumen Low Profile Bladder Sabino Taper Latex Free 180-232 - [id number] Implanted:Qty: 1 on 03/12/2024 by Bassem Narayan MD at [facility] Explanted:Qty: 1 on 04/02/2024 at [facility] Left: Ureter [employer]an 08/30/2025 [id number] / / [id number] Procedures Procedure Name Priority Date/Time Associated Diagnosis [...] Yellow Yellow YURI Comment:Testing performed by : [address] [address] Clarity, ur Clear Clear YURI Comment:Testing performed by : [address] [address] Specific gravity, ur 1.013 1.003 - 1.030 YURI Comment:Testing performed by : [address] [address] pH, urine 5.5 YURI WILLS Comment: Interpretive Data Urine pH is affected by diet, medications, systemic acid-base disturbances, and renal tubular function. pH may affect urinary stone formation. For example, urine pH below 6.0 may help reduce the tendency for calcium phosphate stones and pH greater than 6.0 may reduce the tendency for uric acid stone formation. Source: [email or web address] Current Interpretive Data was last revised on 2017 Testing performed by: [facility], [address] [place] [address]., [address] Protein, ur ql Negative Negative YURI Comment:Testing performed by : [address], [place]., [address] Glucose, ur ql Negative Negative YURI Comment:Testing performed by : [address], [place]., [address] Ketones, ur Negative Negative YURI Comment:Testing performed by : [address], [place]., [address] Bilirubin, ur Negative Negative YURI Comment:Testing performed by : [address], [place]., [address] Blood, ur Negative Negative YURI Comment:Testing performed by : [address], [place]., [address] Urobilinogen, ur <2.0 <2.0 mg/dL YURI Comment:Testing performed by : [address], [place]., [address] Nitrite, ur Negative Negative YURI Comment:Testing performed by : [address] [address] Leukocyte esterase, ur Negative Negative YURI Comment:Testing performed by : [address], [place]., [address] UA reflex comment Reflex conditions for microscopic UA not met. YURI Comment:Testing performed by : [address], [place]., [address] Urine 06/29/2024 9:00 AM CDT 06/29/2024 1:22 PM CDT us Notinfile Unknown LAB URINE ORDERABLES Final Res ult YURI WILLS [address] [facility] [place] [address] * COVID-19 Coronavirus RNA Nasopharyngeal (06/29/2024 8:50 AM CDT) COVID-19 RNA Negative Negative LUISJIMY Comment:Testing performed by : [facility], [address] [place] [address]., [address] Nasopharyngeal 06/29/2024 8: 50 AM CDT 06/29/2024 1:22 PM CDT us Notinfile Unknown LAB MICROBIOLOGY - GENERAL ORD ERABLES Final Result YURI [address] [facility] [place] [address] * eGFR (06/29/2024 8:45 AM CDT) eGFR [...] Testing performed by: [facility], [address] [place] [address]., [address] Blood 06/29/2024 8:45 AM CDT 06/29/2024 1:22 PM CDT us Notinfile Unknown LAB BLOOD ORDERABLES Final Res ult YURI [address] [facility] [place] [address] * Differential, auto (06/29/2024 8:45 AM CDT) Neutrophil abs 4.34 1.50 - 6.50 K/cumm YURI Comment:Testing performed by : [address] [address] Imm gran abs 0.07 0.00 - 0.10 K/cumm YURI Comment:Testing performed by : [address] [address] Lymphocyte abs 2.97 0.80 - 3.30 K/cumm YURI Comment:Testing performed by : [address] [address] Monocyte abs 0.49 0.20 - 0.80 K/cumm YURI Comment:Testing performed by : [address] [address] Eosinophil abs 0.14 0.00 - 0.50 K/cumm YURI Comment:Testing performed by : [address] [address] Basophil abs 0.05 0.00 - 0.10 K/cumm YURI Comment:Testing performed by : [address] [address] Neutrophil pct 53.9 % YURI Comment: Interpretive Data Percent cell count reference ranges are not reported, since discordance with absolute values may lead to misinterpretation of CBC data. Current Interpretive Data was last revised on 2017. Testing performed by: [address] [address] Imm gran pct 0.9 % YURI Comment: Interpretive Data Percent cell count reference ranges are not reported, since discordance with absolute values may lead to misinterpretation of CBC data. Current Interpretive Data was last revised on 2017. Testing performed by: [address] [address] Lymphocyte pct 36.8 % YURI Comment: Interpretive Data Percent cell count reference ranges are not reported, since discordance with absolute values may lead to misinterpretation of CBC data. Current Interpretive Data was last revised on 2017. Testing performed by: [address] [address] Monocyte pct 6.1 % YURI Comment: Interpretive Data Percent cell count reference ranges are not reported, since discordance with absolute values may lead to misinterpretation of CBC data. Current Interpretive Data was last revised on 2017. Testing performed by: [address] [address] Eosinophil pct 1.7 % YURI Comment: Interpretive Data Percent cell count reference ranges are not reported, since discordance with absolute values may lead to misinterpretation of CBC data. Current Interpretive Data was last revised on 2017. Testing performed by: [address] [address] Basophil pct 0.6 % YURI Comment: Interpretive Data Percent cell count reference ranges are not reported, since discordance with absolute values may lead to misinterpretation of CBC data. Current Interpretive Data was last revised on 2017. Testing performed by: [address] [address] Blood 06/29/2024 8:45 AM CDT 06/29/2024 1:22 PM CDT us Notinfile Unknown LAB BLOOD ORDERABLES Final Res ult YURI [address] [facility] [place], [place] [id number] * (ABNORMAL) CBC with auto differential (06/29/2024 8:45 AM CDT) WBC 8.06 3.80 - 9.90 K/cumm YURI WILLS Comment:Testing performed by : [address] [address] Hgb 12.4 11.9 - 15.5 g/dL YURI WILLS Comment:Testing performed by : [address] [address] Hct 38.8 35.6 - 45.5 % YURI Comment:Testing performed by : [address] [address] Plt 367 150 - 400 K/cumm YURI Comment:Testing performed by : [address] [address] MPV 10.6 9.1 - 12.3 fL YURI Comment:Testing performed by : [address], [address] RBC 4.27 3.90 - 5.20 M/cumm YURI Comment:Testing performed by : [address], [address] MCV 90.9 81.3 - 96.4 fL YURI Comment:Testing performed by : [address], [address] MCH 29.0 27.1 - 33.3 pg YURI Comment:Testing performed by : [address], [address] MCHC 32.0(L) 32.3 - 35.7 g/dL YURI Comment:Testing performed by : [address], [address] RDW CV 13.7 11.1 - 14.9 % YURI Comment:Testing performed by : [address], [address] RDW SD 45.7 35.7 - 48.1 fL YURI Comment:Testing performed by : [address], [address] NRBC abs 0.00 0.00 - 0.01 K/cumm YURI Comment:Testing performed by : [address], [address] Blood 06/29/2024 8:45 AM CDT 06/29/2024 1:22 PM CDT us Notinfile Unknown LAB BLOOD ORDERABLES Final Res ult YURI [address] [facility] [place] [address] * (ABNORMAL) Comprehensive metabolic panel (06/29/2024 8:45 AM CDT) Sodium 138 135 - 145 mmol/L YURI Comment:Testing performed by : [address] [address] Potassium, pl 3.9 3.3 - 4.9 mmol/L YURI Comment: Hemolyzed; Potassium value may be falsely elevated by as much as 1.0 mmol/L. Suggest redraw and reanalysis. Testing performed by: [address] [address] Chloride 102 97 - 110 mmol/L YURI Comment:Testing performed by : [address] [address] CO2 22 22 - 32 mmol/L YURI Comment:Testing performed by : [address] [address] Anion gap 14 2 - 15 mmol/L YURI Comment:Testing performed by : [address] [address] BUN 23 6 - 25 mg/dL YURI Comment:Testing performed by : [address] [address] Creatinine 0.90 0.60 - 1.10 mg/dL YURI Comment:Testing performed by : [address] [address] Glucose 238(H) 70 - 199 mg/dL YURI [...] Testing performed by: [facility], [address] [place] [address]., [address] Calcium 11.2(H) 8.5 - 10.3 mg/dL YURI Comment:Testing performed by : [address] [address] Bilirubin, total 0.3 0.1 - 1.2 mg/dL YURI Comment:Testing performed by : [address] [address] Protein, pl 7.4 6.5 - 8.5 g/dL YURI Comment:Testing performed by : [address] [address] Albumin 3.8 3.5 - 5.0 g/dL YURI Comment:Testing performed by : [address] [address] Alk phos 72 40 - 130 Units/L YURI Comment:Testing performed by : [address] [address] ALT 25 7 - 45 Units/L YURI Comment:Testing performed by : [address] [address] AST 23 10 - 45 Units/L YURI Comment:Testing performed by : [address] [address] Blood 06/29/2024 8:45 AM CDT 06/29/2024 1:22 PM CDT us Notinfile Unknown LAB BLOOD ORDERABLES Final Res ult LUISJIMY [address] [facility] [place] [address] * (ABNORMAL) eGFR (06/26/2024 6:17 AM CDT) eGFR 51(L) >=60 mL/min/1. 73 m2 YURI Comment: Interpretive [...] was last reviewed 2020. Testing performed by: [address] [address] Blood 06/26/2024 6:17 AM CDT 06/26/2024 8:28 AM CDT us Notinfile Unknown LAB BLOOD ORDERABLES Final Res ult YURI [address] [facility] [place] [address] * (ABNORMAL) Differential, auto (06/26/2024 6:17 AM CDT) Neutrophil abs 5.43 1.50 - 6.50 K/cumm YURI Comment:Testing performed by : [address] [address] Imm gran abs 0.28(H) 0.00 - 0.10 K/cumm YURI Comment:Testing performed by : [address] [address] Lymphocyte abs 4.08(H) 0.80 - 3.30 K/cumm YURI Comment:Testing performed by : [address] [address] Monocyte abs 0.60 0.20 - 0.80 K/cumm YURI Comment:Testing performed by : [address] [address] Eosinophil abs 0.18 0.00 - 0.50 K/cumm [facility] Comment:Testing performed by : [address] [address] Basophil abs 0.08 0.00 - 0.10 K/cumm [facility] Comment:Testing performed by : [address] [address] Neutrophil pct 51.0 % [facility] Comment: Interpretive Data Percent cell count reference ranges are not reported, since discordance with absolute values may lead to misinterpretation of CBC data. Current Interpretive Data was last revised on 2017. Testing performed by: [address] [address] Imm gran pct 2.6 % [facility] Comment: Interpretive Data Percent cell count reference ranges are not reported, since discordance with absolute values may lead to misinterpretation of CBC data. Current Interpretive Data was last revised on 2017. Testing performed by: [address] [address] Lymphocyte pct 38.3 % [facility] Comment: Interpretive Data Percent cell count reference ranges are not reported, since discordance with absolute values may lead to misinterpretation of CBC data. Current Interpretive Data was last revised on 2017. Testing performed by: [address] [address] Monocyte pct 5.6 % [facility] Comment: Interpretive Data Percent cell count reference ranges are not reported, since discordance with absolute values may lead to misinterpretation of CBC data. Current Interpretive Data was last revised on 2017. Testing performed by: [address] [address] Eosinophil pct 1.7 % [facility] Comment: Interpretive Data Percent cell count reference ranges are not reported, since discordance with absolute values may lead to misinterpretation of CBC data. Current Interpretive Data was last revised on 2017. Testing performed by: [address] [address] Basophil pct 0.8 % [facility] Comment: Interpretive Data Percent cell count reference ranges are not reported, since discordance with absolute values may lead to misinterpretation of CBC data. Current Interpretive Data was last revised on 2017. Testing performed by: [address] [address] Blood 06/26/2024 6:17 AM CDT 06/26/2024 8:28 AM CDT us Notinfile Unknown LAB BLOOD ORDERABLES Final Res ult YURI [address] [facility] [place] [address] * (ABNORMAL) CBC with auto differential (06/26/2024 6:17 AM CDT) WBC 10.65(H) 3.80 - 9.90 K/cumm YURI WILLS Comment:Testing performed by : [address] [address] Hgb 12.4 11.9 - 15.5 g/dL YURI WILLS Comment:Testing performed by : [address] [address] Hct 38.3 35.6 - 45.5 % YURI Comment:Testing performed by : [address] [address] Plt 416(H) 150 - 400 K/cumm YURI Comment:Testing performed by : [address] [address] MPV 10.0 9.1 - 12.3 fL YURI WILLS Comment:Testing performed by : [address] [address] RBC 4.17 3.90 - 5.20 M/cumm YURI WILLS Comment:Testing performed by : [address] [address] MCV 91.8 81.3 - 96.4 fL YURI WILLS Comment:Testing performed by : [address] [address] MCH 29.7 27.1 - 33.3 pg YURI WILLS Comment:Testing performed by : [address] [address] MCHC 32.4 32.3 - 35.7 g/dL YURI WILLS Comment:Testing performed by : [address] [address] RDW CV 13.7 11.1 - 14.9 % YURI WILLS Comment:Testing performed by : [address] [address] RDW SD 46.0 35.7 - 48.1 fL YURI WILLS Comment:Testing performed by : [address] [address] NRBC abs 0.00 0.00 - 0.01 K/cumm YURI WILLS Comment:Testing performed by : [address] [address] Blood 06/26/2024 6:17 AM CDT 06/26/2024 8:28 AM CDT us Notinfile Unknown LAB BLOOD ORDERABLES Final Res ult YURI [facility] [place] [address] * (ABNORMAL) Basic metabolic panel (06/26/2024 6:17 AM CDT) Sodium 140 135 - 145 mmol/L YURI WILLS Comment:Testing performed by : [address] [address] Potassium, pl 4.4 3.3 - 4.9 mmol/L YURI WILLS Comment:Testing performed by : [address] [address] Chloride 104 97 - 110 mmol/L YURI WILLS Comment:Testing performed by : [address] [address] CO2 27 22 - 32 mmol/L YURI WILLS Comment:Testing performed by : [address] [address] Anion gap 9 2 - 15 mmol/L YURI WILLS Comment:Testing performed by : [address] [address] BUN 29(H) 6 - 25 mg/dL YURI WILLS Comment:Testing performed by : [address] [address] Creatinine 1.10 0.60 - 1.10 mg/dL YURI WILLS Comment:Testing performed by : [address] [address] Glucose 159 70 - 199 mg/dL YURI [...] was last revised 2022. Testing performed by: [address] [address] Calcium 11.7(H) 8.5 - 10.3 mg/dL YURI Comment:Testing performed by : [address] [address] Blood 06/26/2024 6:17 AM CDT 06/26/2024 8:28 AM CDT us Notinfile Unknown LAB BLOOD ORDERABLES Final Res ult YURI [address] [facility] [place] [address] * (ABNORMAL) eGFR (06/25/2024 6:07 AM CDT) eGFR 42(L) >=60 mL/min/1. 73 m2 YURI WILLS Comment: [...] was last reviewed 2020. Testing performed by: [address] [address] Blood 06/25/2024 6:07 AM CDT 06/25/2024 8:38 AM CDT us Notinfile Unknown LAB BLOOD ORDERABLES Final Res ult YURI [facility] [place] [address] * (ABNORMAL) Differential, auto (06/25/2024 6:07 AM CDT) Neutrophil abs 5.39 1.50 - 6.50 K/cumm YURI Comment:Testing performed by : [address] [address] Imm gran abs 0.52(H) 0.00 - 0.10 K/cumm YURI Comment:Testing performed by : [address] [address] Lymphocyte abs 4.13(H) 0.80 - 3.30 K/cumm YURI Comment:Testing performed by : [address] [address] Monocyte abs 0.72 0.20 - 0.80 K/cumm YURI Comment:Testing performed by : [address] [address] Eosinophil abs 0.18 0.00 - 0.50 K/cumm YURI Comment:Testing performed by : [address] [address] Basophil abs 0.10 0.00 - 0.10 K/cumm YURI Comment:Testing performed by : [address] [address] Neutrophil pct 48.9 % [facility] Comment: Interpretive Data Percent cell count reference ranges are not reported, since discordance with absolute values may lead to misinterpretation of CBC data. Current Interpretive Data was last revised on 2017. Testing performed by: [address] [address] Imm gran pct 4.7 % [facility] Comment: Interpretive Data Percent cell count reference ranges are not reported, since discordance with absolute values may lead to misinterpretation of CBC data. Current Interpretive Data was last revised on 2017. Testing performed by: [address] [address] Lymphocyte pct 37.4 % [facility] Comment: Interpretive Data Percent cell count reference ranges are not reported, since discordance with absolute values may lead to misinterpretation of CBC data. Current Interpretive Data was last revised on 2017. Testing performed by: [address] [address] Monocyte pct 6.5 % [facility] Comment: Interpretive Data Percent cell count reference ranges are not reported, since discordance with absolute values may lead to misinterpretation of CBC data. Current Interpretive Data was last revised on 2017. Testing performed by: [address] [address] Eosinophil pct 1.6 % [facility] Comment: Interpretive Data Percent cell count reference ranges are not reported, since discordance with absolute values may lead to misinterpretation of CBC data. Current Interpretive Data was last revised on 2017. Testing performed by: [address] [address] Basophil pct 0.9 % [facility] Comment: Interpretive Data Percent cell count reference ranges are not reported, since discordance with absolute values may lead to misinterpretation of CBC data. Current Interpretive Data was last revised on 2017. Testing performed by: [address] [address] Blood 06/25/2024 6:07 AM CDT 06/25/2024 8:38 AM CDT us Notinfile Unknown LAB BLOOD ORDERABLES Final Res ult YURI WILLS [address] [facility] [place] [address] * (ABNORMAL) CBC with auto differential (06/25/2024 6:07 AM CDT) WBC 11.04(H) 3.80 - 9.90 K/cumm YURI Comment:Testing performed by : [address] [address] Hgb 12.1 11.9 - 15.5 g/dL YURI Comment:Testing performed by : [address] [address] Hct 37.2 35.6 - 45.5 % YURI Comment:Testing performed by : [address] [address] Plt 396 150 - 400 K/cumm YURI Comment:Testing performed by : [address] [address] MPV 10.1 9.1 - 12.3 fL YURI Comment:Testing performed by : [address] [address] RBC 4.07 3.90 - 5.20 M/cumm YURI WILLS Comment:Testing performed by : [address] [address] MCV 91.4 81.3 - 96.4 fL YURI Comment:Testing performed by : [address] [address] MCH 29.7 27.1 - 33.3 pg YURI WILLS Comment:Testing performed by : [address] [address] MCHC 32.5 32.3 - 35.7 g/dL YURI Comment:Testing performed by : [address], [address] RDW CV 13.4 11.1 - 14.9 % YURI WILLS Comment:Testing performed by : [address] [address] RDW SD 45.2 35.7 - 48.1 fL YUIR WILLS Comment:Testing performed by : [address] [address] NRBC abs 0.00 0.00 - 0.01 K/cumm YURI WILLS Comment:Testing performed by : [address] [address] Blood 06/25/2024 6:07 AM CDT 06/25/2024 8:38 AM CDT us Notinfile Unknown LAB BLOOD ORDERABLES Final Res ult YURI [address] [facility] [place] [address] * (ABNORMAL) Comprehensive metabolic panel (06/25/2024 6:07 AM CDT) Sodium 141 135 - 145 mmol/L YURI Comment:Testing performed by : [address] [address] Potassium, pl 4.7 3.3 - 4.9 mmol/L YURI Comment:Testing performed by : [address] [address] Chloride 104 97 - 110 mmol/L YURI Comment:Testing performed by : [address] [address] CO2 29 22 - 32 mmol/L YURI Comment:Testing performed by : [address] [address] Anion gap 8 2 - 15 mmol/L YURI Comment:Testing performed by : [address] [address] BUN 32(H) 6 - 25 mg/dL YURI Comment:Testing performed by : [address] [address] Creatinine 1.30(H) 0.60 - 1.10 mg/dL YURI Comment:Testing performed by : [address] [address] Glucose 135 70 - 199 mg/dL YUIR Comment: Interpretive Data Fasting glucose >/= 126 [...] was last revised 2022. Testing performed by: [address] [address] Calcium 11.8(H) 8.5 - 10.3 mg/dL YURI Comment:Testing performed by : [address] [address] Bilirubin, total 0.2 0.1 - 1.2 mg/dL YURI Comment:Testing performed by : [address] [address] Protein, pl 7.0 6.5 - 8.5 g/dL YURI Comment:Testing performed by : [address] [address] Albumin 3.6 3.5 - 5.0 g/dL YURI Comment:Testing performed by : [address] [address] Alk phos 70 40 - 130 Units/L YURI Comment:Testing performed by : [address] [address] ALT 34 7 - 45 Units/L YURI Comment:Testing performed by : [address] [address] AST 28 10 - 45 Units/L YURI Comment:Testing performed by : [address] [address] Blood 06/25/2024 6:07 AM CDT 06/25/2024 8:38 AM CDT us Notinfile Unknown LAB BLOOD ORDERABLES Final Res ult LUISJIMY ELMA [address] [facility] [place] [address] * (ABNORMAL) Basic metabolic panel (06/25/2024 6:07 AM CDT) Sodium 141 135 - 145 mmol/L YURI Comment:Testing performed by : [address] [address] Potassium, pl 4.7 3.3 - 4.9 mmol/L YURI Comment:Testing performed by : [address] [address] Chloride 104 97 - 110 mmol/L YURI Comment:Testing performed by : [address] [address] CO2 29 22 - 32 mmol/L YURI Comment:Testing performed by : [address] [address] Anion gap 8 2 - 15 mmol/L YURI Comment:Testing performed by : [address] [address] BUN 32(H) 6 - 25 mg/dL YURI Comment:Testing performed by : [address] [address] Creatinine 1.30(H) 0.60 - 1.10 mg/dL YURI Comment:Testing performed by : [address] [address] Glucose 135 70 - 199 mg/dL YURI [...] classification and Diagnosis of Diabetes Diabetes Care 2022; 46: S19-S40. Current interpretive data was last revised 2022. Testing performed by: [facility], [address] [place] [address]., [address] Calcium 11.8(H) 8.5 - 10.3 mg/dL YURI WILLS Comment:Testing performed by : [facility], [address] [place] [address]., [address] Blood 06/25/2024 6:07 AM CDT 06/25/2024 8:38 AM CDT us Notinfile Unknown LAB BLOOD ORDERABLES Final Res ult YURI WILLS [address] [facility] [place] [address] * (ABNORMAL) eGFR (06/24/2024 6:10 AM CDT) eGFR 43(L) >=60 mL/min/1. 73 m2 YURI [...] Testing performed by: [facility], [address] [place] [address]., [address] Blood 06/24/2024 6:10 AM CDT 06/24/2024 8:23 AM CDT us Notinfile Unknown LAB BLOOD ORDERABLES Final Res ult YURI [address] [facility] [place] [address] * (ABNORMAL) Basic metabolic panel (06/24/2024 6:10 AM CDT) Sodium 138 135 - 145 mmol/L YURI Comment:Testing performed by : [address] [address] Potassium, pl 4.3 3.3 - 4.9 mmol/L YURI Comment:Testing performed by : [address] [address] Chloride 102 97 - 110 mmol/L YURI Comment:Testing performed by : [address] [address] CO2 26 22 - 32 mmol/L YURI Comment:Testing performed by : [address] [address] Anion gap 10 2 - 15 mmol/L YURI Comment:Testing performed by : [address] [address] BUN 30(H) 6 - 25 mg/dL YURI Comment:Testing performed by : [address] [address] Creatinine 1.26(H) 0.60 - 1.10 mg/dL YURI Comment:Testing performed by : [address] [address] Glucose 128 70 - 199 mg/dL YURI [...] was last revised 2022. Testing performed by: [facility], [address] [place] [address]., [address] Calcium 12.4(H) 8.5 - 10.3 mg/dL YURI Comment:Testing performed by : [address] [address] Blood 06/24/2024 6:10 AM CDT 06/24/2024 8:23 AM CDT us Notinfile Unknown LAB BLOOD ORDERABLES Final Res ult Performing Organization Address [facility] Co de Phone Number YURI [address] [facility] [place] [address] * (ABNORMAL) eGFR (06/22/2024 6:34 AM CDT) eGFR 48(L) >=60 mL/min/1. 73 m2 YURI Comment: Interpretive [...] Testing performed by: [facility], [address] [place] [address]., [address] Blood 06/22/2024 6:34 AM CDT 06/22/2024 8:09 AM CDT us Notinfile Unknown LAB BLOOD ORDERABLES Final Res ult Performing Organization Address City/[facility]/ZIP Co de Phone Number YURI [address] [facility] [place] [address] * (ABNORMAL) Differential, auto (06/22/2024 6:34 AM CDT) Neutrophil abs 4.82 1.50 - 6.50 K/cumm YURI Comment:Testing performed by : [address] [address] Imm gran abs 0.59(H) 0.00 - 0.10 K/cumm YURI Comment:Testing performed by : [address] [address] Lymphocyte abs 3.15 0.80 - 3.30 K/cumm YURI Comment:Testing performed by : [address] [address] Monocyte abs 0.61 0.20 - 0.80 K/cumm YURI Comment:Testing performed by : [address] [address] Eosinophil abs 0.17 0.00 - 0.50 K/cumm YURI Comment:Testing performed by : [address] [address] Basophil abs 0.08 0.00 - 0.10 K/cumm YURI Comment:Testing performed by : [address] [address] Neutrophil pct 51.2 % YURI Comment: Interpretive Data Percent cell count reference ranges are not reported, since discordance with absolute values may lead to misinterpretation of CBC data. Current Interpretive Data was last revised on 2017. Testing performed by: [address] [address] Imm gran pct 6.3 % YURI Comment: Interpretive Data Percent cell count reference ranges are not reported, since discordance with absolute values may lead to misinterpretation of CBC data. Current Interpretive Data was last revised on 2017. Testing performed by: [address] [address] Lymphocyte pct 33.4 % YURI Comment: Interpretive Data Percent cell count reference ranges are not reported, since discordance with absolute values may lead to misinterpretation of CBC data. Current Interpretive Data was last revised on 2017. Testing performed by: [address] [address] Monocyte pct 6.5 % YURI Comment: Interpretive Data Percent cell count reference ranges are not reported, since discordance with absolute values may lead to misinterpretation of CBC data. Current Interpretive Data was last revised on 2017. Testing performed by: [address] [address] Eosinophil pct 1.8 % YRUI Comment: Interpretive Data Percent cell count reference ranges are not reported, since discordance with absolute values may lead to misinterpretation of CBC data. Current Interpretive Data was last revised on 2017. Testing performed by: [address] [address] Basophil pct 0.8 % YURI Comment: Interpretive Data Percent cell count reference ranges are not reported, since discordance with absolute values may lead to misinterpretation of CBC data. Current Interpretive Data was last revised on 2017. Testing performed by: [address] [address] Blood 06/22/2024 6:34 AM CDT 06/22/2024 8:09 AM CDT us Notinfile Unknown LAB BLOOD ORDERABLES Final Res ult YURI [address] [facility] [place], [place] [id number] * (ABNORMAL) CBC with auto differential (06/22/2024 6:34 AM CDT) WBC 9.42 3.80 - 9.90 K/cumm YURI WILLS Comment:Testing performed by : [address] [address] Hgb 11.7(L) 11.9 - 15.5 g/dL YURI WILLS Comment:Testing performed by : [address] [address] Hct 35.9 35.6 - 45.5 % YURI WILLS Comment:Testing performed by : [address] [address] Plt 367 150 - 400 K/cumm YURI WILLS Comment:Testing performed by : [address] [address] MPV 9.9 9.1 - 12.3 fL YURI WILLS Comment:Testing performed by : [address] [address] RBC 3.95 3.90 - 5.20 M/cumm YURI WILLS Comment:Testing performed by : [address], [address] MCV 90.9 81.3 - 96.4 fL YURI Comment:Testing performed by : [address] [address] MCH 29.6 27.1 - 33.3 pg YURI WILLS Comment:Testing performed by : [address], [address] MCHC 32.6 32.3 - 35.7 g/dL YURI Comment:Testing performed by : [address], [address] RDW CV 13.3 11.1 - 14.9 % YURI Comment:Testing performed by : [address] [address] RDW SD 43.8 35.7 - 48.1 fL YURI Comment:Testing performed by : [address] [address] NRBC abs 0.00 0.00 - 0.01 K/cumm YURI Comment:Testing performed by : [address] [address] Blood 06/22/2024 6:34 AM CDT 06/22/2024 8:09 AM CDT us Notinfile Unknown LAB BLOOD ORDERABLES Final Res ult YURI WILLS [address] [facility] [place] [address] * Vitamin D 25 hydroxy (06/22/2024 6:34 AM CDT) [facility] Vitamin D 25-OH 64.0 30.0 - 80.0 ng/mL YURI Blood 06/22/2024 6:34 AM CDT 06/22/2024 10:32 AM CDT us Notinfile Unknown LAB BLOOD ORDERABLES Final Res ult Performing Organization Address City/[facility] Co de Phone Number [address] [address] * Magnesium (06/22/2024 6:34 AM CDT) [facility] Magnesium 1.7 1.4 - 2.5 mg/dL YURI Comment:Testing performed by : [address] [address] Blood 06/22/2024 6:34 AM CDT 06/22/2024 8:09 AM CDT us Notinfile Unknown LAB BLOOD ORDERABLES Final Res ult Performing Organization Address [facility] Co de Phone Number LUIS[address] [address] * (ABNORMAL) Basic metabolic panel (06/22/2024 6:34 AM CDT) [facility] Sodium 140 135 - 145 mmol/L YURI Comment:Testing performed by : [address] [address] Potassium, pl 4.1 3.3 - 4.9 mmol/L YURI Comment:Testing performed by : [address] [address] Chloride 105 97 - 110 mmol/L YURI Comment:Testing performed by : [address] [address] CO2 26 22 - 32 mmol/L YURI Comment:Testing performed by : [address] [address] Anion gap 9 2 - 15 mmol/L YURI WILLS Comment:Testing performed by : [address] [address] BUN 22 6 - 25 mg/dL YURI Comment:Testing performed by : [address] [address] Creatinine 1.15(H) 0.60 - 1.10 mg/dL YURI Comment:Testing performed by : [address] [address] Glucose 128 70 - 199 mg/dL YURI [...] was last revised 2022. Testing performed by: [address] [address] Calcium 11.1(H) 8.5 - 10.3 mg/dL YURI Comment:Testing performed by : [address] [address] Blood 06/22/2024 6:34 AM CDT 06/22/2024 8:09 AM CDT us Notinfile Unknown LAB BLOOD ORDERABLES Final Res ult YURI WILLS [address] [facility] [place] [address] * (ABNORMAL) eGFR (06/19/2024 6:30 AM CDT) [...] was last reviewed 2020. Testing performed by: [address] [address] Blood 06/19/2024 6:30 AM CDT 06/19/2024 8:31 AM CDT us Notinfile Unknown LAB BLOOD ORDERABLES Final Res ult YURI [address] [facility] [place] [address] * (ABNORMAL) Differential, auto (06/19/2024 6:30 AM CDT) Neutrophil abs 5.74 1.50 - 6.50 K/cumm YURI Comment:Testing performed by : [address] [address] Imm gran abs 0.10 0.00 - 0.10 K/cumm YURI Comment:Testing performed by : [address] [address] Lymphocyte abs 2.83 0.80 - 3.30 K/cumm YURI Comment:Testing performed by : [address] [address] Monocyte abs 1.06(H) 0.20 - 0.80 K/cumm YURI Comment:Testing performed by : [address] [address] Eosinophil abs 0.16 0.00 - 0.50 K/cumm [facility] Comment:Testing performed by : [address] [address] Basophil abs 0.04 0.00 - 0.10 K/cumm CERJIMY Comment:Testing performed by : [address] [address] Neutrophil pct 57.8 % [facility] Comment: Interpretive Data Percent cell count reference ranges are not reported, since discordance with absolute values may lead to misinterpretation of CBC data. Current Interpretive Data was last revised on 2017. Testing performed by: [address] [address] Imm gran pct 1.0 % [facility] Comment: Interpretive Data Percent cell count reference ranges are not reported, since discordance with absolute values may lead to misinterpretation of CBC data. Current Interpretive Data was last revised on 2017. Testing performed by: [address] [address] Lymphocyte pct 28.5 % [facility] Comment: Interpretive Data Percent cell count reference ranges are not reported, since discordance with absolute values may lead to misinterpretation of CBC data. Current Interpretive Data was last revised on 2017. Testing performed by: [address] [address] Monocyte pct 10.7 % [facility] Comment: Interpretive Data Percent cell count reference ranges are not reported, since discordance with absolute values may lead to misinterpretation of CBC data. Current Interpretive Data was last revised on 2017. Testing performed by: [address] [address] Eosinophil pct 1.6 % [facility] Comment: Interpretive Data Percent cell count reference ranges are not reported, since discordance with absolute values may lead to misinterpretation of CBC data. Current Interpretive Data was last revised on 2017. Testing performed by: [address] [address] Basophil pct 0.4 % [facility] Comment: Interpretive Data Percent cell count reference ranges are not reported, since discordance with absolute values may lead to misinterpretation of CBC data. Current Interpretive Data was last revised on 2017. Testing performed by: [address] [address] Blood 06/19/2024 6:30 AM CDT 06/19/2024 8:31 AM CDT us Notinfile Unknown LAB BLOOD ORDERABLES Final Res ult YURI [address] [facility] [place] [address] * (ABNORMAL) CBC with auto differential (06/19/2024 6:30 AM CDT) WBC 9.93(H) 3.80 - 9.90 K/cumm YURI Comment:Testing performed by : [address] [address] Hgb 11.0(L) 11.9 - 15.5 g/dL YURI Comment:Testing performed by : [address] [address] Hct 34.0(L) 35.6 - 45.5 % YURI Comment:Testing performed by : [address] [address] Plt 262 150 - 400 K/cumm YURI Comment:Testing performed by : [address] [address] MPV 10.2 9.1 - 12.3 fL YURI Comment:Testing performed by : [address] [address] RBC 3.74(L) 3.90 - 5.20 M/cumm YURI Comment:Testing performed by : [address] [address] MCV 90.9 81.3 - 96.4 fL YURI Comment:Testing performed by : [address] [address] MCH 29.4 27.1 - 33.3 pg YURI WILLS Comment:Testing performed by : [address] [address] MCHC 32.4 32.3 - 35.7 g/dL YURI WILLS Comment:Testing performed by : [address] [address] RDW CV 13.2 11.1 - 14.9 % YURI WILLS Comment:Testing performed by : [address] [address] RDW SD 44.6 35.7 - 48.1 fL YURI WILLS Comment:Testing performed by : [address] [address] NRBC abs 0.00 0.00 - 0.01 K/cumm YURI WILLS Comment:Testing performed by : [address] [address] Blood 06/19/2024 6:30 AM CDT 06/19/2024 8:31 AM CDT us Notinfile Unknown LAB BLOOD ORDERABLES Final Res ult YURI [facility] [place], [place] [id number] * (ABNORMAL) Comprehensive metabolic panel (06/19/2024 6:30 AM CDT) Sodium 140 135 - 145 mmol/L YURI WILLS Comment:Testing performed by : [address] [address] Potassium, pl 3.7 3.3 - 4.9 mmol/L YURI WILLS Comment:Testing performed by : [address] [address] Chloride 104 97 - 110 mmol/L YURI WILLS Comment:Testing performed by : [address] [address] CO2 26 22 - 32 mmol/L YURI WILLS Comment:Testing performed by : [address] [address] Anion gap 10 2 - 15 mmol/L YURI WILLS Comment:Testing performed by : [address] [address] BUN 24 6 - 25 mg/dL YURI Comment:Testing performed by : [address] [address] Creatinine 1.06 0.60 - 1.10 mg/dL YURI Comment:Testing performed by : [address] [address] Glucose 123 70 - 199 mg/dL YURI [...] was last revised 2022. Testing performed by: [address] [address] Calcium 11.2(H) 8.5 - 10.3 mg/dL YURI Comment:Testing performed by : [address] [address] Bilirubin, total 0.4 0.1 - 1.2 mg/dL YURI Comment:Testing performed by : [address] [address] Protein, pl 7.1 6.5 - 8.5 g/dL YURI Comment:Testing performed by : [address] [address] Albumin 3.4(L) 3.5 - 5.0 g/dL YURI Comment:Testing performed by : [address] [address] Alk phos 73 40 - 130 Units/L YURI Comment:Testing performed by : [address] [address] ALT 16 7 - 45 Units/L YURI Comment:Testing performed by : [address] [address] AST 22 10 - 45 Units/L YURI WILLS Comment:Testing performed by : [facility], [address] [place]., [address] Blood 06/19/2024 6:30 AM CDT 06/19/2024 8:31 AM CDT us Notinfile Unknown LAB BLOOD ORDERABLES Final Res ult YURI WILLS [address] [facility] [place] [address] from Last 3 Months Insurance MEDICARE [email or web address] OOS MEDICARE BLUE ACCESS OOS IDPA Care Teams Brew[employer] Relationship 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
== END 2024-07-24 15:01 | disposition home or self-care (01) ==
PROVIDERS: PCP Internal Medicine; Visit Provider Internal Medicine
DX: E83.52 Hypercalcemia (principal)
CPT/HCPCS: 76536

== ENCOUNTER 2024-08-12 11:00 | Outpatient (CLI) | payer MEDICARE, BC, OTHER, MEDICAID, SELFPAY ==
--- NOTE | ~2024-08-12 | XR_ITS ---
XR abdomen/kub 1V Ordering provider: Bassem Narayan MD History: . LEFT RENAL STONE . Comparison: None. FINDINGS: BOWEL: Nonobstructive bowel gas pattern. ORGANOMEGALY: None. SIGNIFICANT PATHOLOGIC CALCIFICATIONS: Calcific shadow is projected over the left transverse process of L4 which may be a stone. Clinical correlation advised. OTHER: No free air is seen under the diaphragm. Dextroscoliosis with degenerative changes of the spine. IMPRESSION: NO ACUTE ABDOMINAL FINDINGS. Highly suggestive stone in the left mid ureter. Clinical correlation and follow-up advised. Reviewed, dictated and finalized at location A. IMPRESSION: NO ACUTE ABDOMINAL FINDINGS. Highly suggestive stone in the left mid ureter. Clinical correlation and follow -up advised.
--- OUTSIDE RECORDS SUMMARY | 2024-08-12 11:15 | XMS_ITS | Clinical Summary ---
Author Organization [facility] Address [address] [place] [id number] Care Team Providers Care Litigation Docket Manager Name Role Phone Unavailable Primary Care Provider [...]
--- OUTSIDE RECORDS SUMMARY | 2024-08-12 11:15 | XMS_ITS | Clinical Summary ---
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 Role Phone No, Physician Primary Care Provider [phone] Allergies Active Allergy Reactions Criticality Noted Date [...] Description 06/19/2024 Orders Only [facility] Inter[facility] [phone] Unknown, Notinfile from Last 3 Months Surgical [...] on file Legal Sex Female 10:27 AM LICENSED CERTIFIED ORTHOTIST Gender Identity Not on file Sexual Orientation Not on file Obstetrics History Last Filed Vital Signs Vital Sign Reading Time Taken Comments Blood Pressure 150/69 04/02/2024 2:02 PM LICENSED CERTIFIED ORTHOTIST Pulse 80 04/02/2024 2:02 PM LICENSED CERTIFIED ORTHOTIST Temperature 36.9 C (98.4 F) 04/02/2024 2:02 PM LICENSED CERTIFIED ORTHOTIST Respiratory Rate 18 04/02/2024 2:02 PM LICENSED CERTIFIED ORTHOTIST Oxygen Saturation 95% 04/02/2024 2:02 PM LICENSED CERTIFIED ORTHOTIST Inhaled Oxygen Concentration - - Weight 87.6 kg (193 lb 2 oz) 04/02/2024 10:49 AM LICENSED CERTIFIED ORTHOTIST Height 162.6 cm (5' 4) 04/02/2024 10:49 AM LICENSED CERTIFIED ORTHOTIST Body Mass Index 33.15 04/02/2024 10:49 AM LICENSED CERTIFIED ORTHOTIST Plan of Treatment Health Maintenance Due Date [...] history exists Medical Devices Implanted Type Area Steam Station Supervisor Device Identifier Shelf Expiration Date Model / Serial / Lot [employer]an Stent Ureteral Set Double Pigtail Tapered Tip Contour [id number] Hydroplus Coated [id number] - [id number] Implanted:Qty: 1 on 04/02/2024 by Bassem Narayan MD at [facility] Left: Ureter [employer] Rohan 12/01/2026 [id number] / / [id number] Explanted Type Area Steam Station Supervisor Device Identifier Shelf Expiration Date Model / Serial / Lot [employer] Rohan Contour 7fr 24cm Large Inner Lumen Low Profile Bladder Sabino Taper Latex Free [id number] - [id number] Implanted:Qty: 1 on 03/12/2024 by Bassem Narayan MD at [facility] Explanted:Qty: 1 on 04/02/2024 at [facility] Left: Ureter [employer] Rohan 08/30/2025 [id number] / / [id number] Procedures Procedure Name Priority Date/Time Associated Diagnosis [...] Yellow Yellow YURI Comment:Testing performed by : [address] [address] Clarity, ur Clear Clear YURI Comment:Testing performed by : [address] [address] Specific gravity, ur 1.013 1.003 - 1.030 YURI Comment:Testing performed by : [address] [address] pH, urine 5.5 YURI Comment: Interpretive Data Urine pH is affected by diet, medications, systemic acid-base disturbances, and renal tubular function. pH may affect urinary stone formation. For example, urine pH below 6.0 may help reduce the tendency for calcium phosphate stones and pH greater than 6.0 may reduce the tendency for uric acid stone formation. Source: [facility] [employer] Current Interpretive Data was last revised on 2017 Testing performed by: [address] [address] Protein, ur ql Negative Negative YURI Comment:Testing performed by : [address] [address] Glucose, ur ql Negative Negative YURI Comment:Testing performed by : [address] [address] Ketones, ur Negative Negative YURI Comment:Testing performed by : [address] [address] Bilirubin, ur Negative Negative YURI Comment:Testing performed by : [facility], [address] [place] [address]., [address] Blood, ur Negative Negative YURI WILLS Comment:Testing performed by : [address] [address] Urobilinogen, ur <2.0 <2.0 mg/dL YURI WILLS Comment:Testing performed by : [address], [place]., [address] Nitrite, ur Negative Negative YURI Comment:Testing performed by : [address], [place]., [address] Leukocyte esterase, ur Negative Negative YURI Comment:Testing performed by : [address] [address] UA reflex comment Reflex conditions for microscopic UA not met. YURI Comment:Testing performed by : [address] [address] Urine 06/29/2024 9:00 AM CDT 06/29/2024 1:22 PM CDT us Notinfile Unknown LAB URINE ORDERABLES Final Res ult YURI [address] [place] [address] * COVID-19 Coronavirus RNA Nasopharyngeal (06/29/2024 8:50 AM CDT) Pathologist [facility] COVID-19 RNA Negative Negative YURI Comment:Testing performed by : [address] [address] Nasopharyngeal 06/29/2024 8: 50 AM CDT 06/29/2024 1:22 PM CDT us Notinfile Unknown LAB MICROBIOLOGY - GENERAL ORD ERABLES Final Result YURI [address] [place] [address] * eGFR (06/29/2024 8:45 AM CDT) eGFR [...] was last reviewed 2020. Testing performed by: [address] [address] Blood 06/29/2024 8:45 AM CDT 06/29/2024 1:22 PM CDT us Notinfile Unknown LAB BLOOD ORDERABLES Final Res ult YURI [address] [facility] Department [place] [address] * Differential, auto (06/29/2024 8:45 AM CDT) Pathologist [facility] Neutrophil abs 4.34 1.50 - 6.50 K/cumm YURI Comment:Testing performed by : [address] [address] Imm gran abs 0.07 0.00 - 0.10 K/cumm YURI Comment:Testing performed by : [address] [address] Lymphocyte abs 2.97 0.80 - 3.30 K/cumm YURI Comment:Testing performed by : [address] [address] Monocyte abs 0.49 0.20 - 0.80 K/cumm [facility] Comment:Testing performed by : [address] [address] Eosinophil abs 0.14 0.00 - 0.50 K/cumm [facility] Comment:Testing performed by : [address], [place]., [address] Basophil abs 0.05 0.00 - 0.10 K/cumm [facility] Comment:Testing performed by : [address] [address] Neutrophil pct 53.9 % [facility] Comment: Interpretive Data Percent cell count reference ranges are not reported, since discordance with absolute values may lead to misinterpretation of CBC data. Current Interpretive Data was last revised on 2017. Testing performed by: [address] [address] Imm gran pct 0.9 % [facility] Comment: Interpretive Data Percent cell count reference ranges are not reported, since discordance with absolute values may lead to misinterpretation of CBC data. Current Interpretive Data was last revised on 2017. Testing performed by: [address] [address] Lymphocyte pct 36.8 % [facility] Comment: Interpretive Data Percent cell count reference ranges are not reported, since discordance with absolute values may lead to misinterpretation of CBC data. Current Interpretive Data was last revised on 2017. Testing performed by: [address] [address] Monocyte pct 6.1 % [facility] Comment: Interpretive Data Percent cell count reference ranges are not reported, since discordance with absolute values may lead to misinterpretation of CBC data. Current Interpretive Data was last revised on 2017. Testing performed by: [address] [address] Eosinophil pct 1.7 % [facility] Comment: Interpretive Data Percent cell count reference ranges are not reported, since discordance with absolute values may lead to misinterpretation of CBC data. Current Interpretive Data was last revised on 2017. Testing performed by: [address] [address] Basophil pct 0.6 % [facility]URI WILLS Comment: Interpretive Data Percent cell count reference ranges are not reported, since discordance with absolute values may lead to misinterpretation of CBC data. Current Interpretive Data was last revised on 2017. Testing performed by: [address] [address] Blood 06/29/2024 8:45 AM CDT 06/29/2024 1:22 PM CDT us Notinfile Unknown LAB BLOOD ORDERABLES Final Res ult YURI [address] [facility] Department [place] [address] * (ABNORMAL) CBC with auto differential (06/29/2024 8:45 AM CDT) WBC 8.06 3.80 - 9.90 K/cumm YURI WILLS Comment:Testing performed by : [address] [address] Hgb 12.4 11.9 - 15.5 g/dL YURI WILLS Comment:Testing performed by : [address] [address] Hct 38.8 35.6 - 45.5 % [facility] WILLS Comment:Testing performed by : [address] [address] Plt 367 150 - 400 K/cumm YURI Comment:Testing performed by : [address] [address] MPV 10.6 9.1 - 12.3 fL YURI WILLS Comment:Testing performed by : [address] [address] RBC 4.27 3.90 - 5.20 M/cumm Y[facility] WILLS Comment:Testing performed by : [address] [address] MCV 90.9 81.3 - 96.4 fL Y[facility] WILLS Comment:Testing performed by : [address] [address] MCH 29.0 27.1 - 33.3 pg YURI WILLS Comment:Testing performed by : [address] [address] MCHC 32.0(L) 32.3 - 35.7 g/dL YURI WILLS Comment:Testing performed by : [address] [address] RDW CV 13.7 11.1 - 14.9 % [facility] WILLS Comment:Testing performed by : [address] [address] RDW SD 45.7 35.7 - 48.1 fL [facility] WILLS Comment:Testing performed by : [address] [address] NRBC abs 0.00 0.00 - 0.01 K/cumm [facility] WILLS Comment:Testing performed by : [address] [address] Blood 06/29/2024 8:45 AM CDT 06/29/2024 1:22 PM CDT us Notinfile Unknown LAB BLOOD ORDERABLES Final Res ult YURI [address] [facility] Department of Laboratories [place], [place] [id number] * (ABNORMAL) Comprehensive metabolic panel (06/29/2024 8:45 AM CDT) Sodium 138 135 - 145 mmol/L YURI WILLS Comment:Testing performed by : [address] [address] Potassium, pl 3.9 3.3 - 4.9 mmol/L YURI WILLS Comment: Hemolyzed; Potassium value may be falsely elevated by as much as 1.0 mmol/L. Suggest redraw and reanalysis. Testing performed by: [address] [address] Chloride 102 97 - 110 mmol/L YURI WILLS Comment:Testing performed by : [address] [address] CO2 22 22 - 32 mmol/L [facility] WILLS Comment:Testing performed by : [address] [address] Anion gap 14 2 - 15 mmol/L YURI Comment:Testing performed by : [address] [address] BUN 23 6 - 25 mg/dL YURI Comment:Testing performed by : [address] [address] Creatinine 0.90 0.60 - 1.10 mg/dL YURI Comment:Testing performed by : [address] [address] Glucose 238(H) 70 - 199 mg/dL YURI [...] was last revised 2022. Testing performed by: [address] [address] Calcium 11.2(H) 8.5 - 10.3 mg/dL YURI Comment:Testing performed by : [address] [address] Bilirubin, total 0.3 0.1 - 1.2 mg/dL YURI Comment:Testing performed by : [address] [address] Protein, pl 7.4 6.5 - 8.5 g/dL YURI Comment:Testing performed by : [address] [address] Albumin 3.8 3.5 - 5.0 g/dL YURI Comment:Testing performed by : [address] [address] Alk phos 72 40 - 130 Units/L YURI Comment:Testing performed by : [address] [address] ALT 25 7 - 45 Units/L YURI WILLS Comment:Testing performed by : [address] [address] AST 23 10 - 45 Units/L YURI WILLS Comment:Testing performed by : [address] [address] Blood 06/29/2024 8:45 AM CDT 06/29/2024 1:22 PM CDT us Notinfile Unknown LAB BLOOD ORDERABLES Final Res ult YURI WILLS [address] [facility] Department [place] [address] * (ABNORMAL) eGFR (06/26/2024 6:17 [...] was last reviewed 2020. Testing performed by: [address] [address] Blood 06/26/2024 6:17 AM CDT 06/26/2024 8:28 AM CDT us Notinfile Unknown LAB BLOOD ORDERABLES Final Res ult YURI 45[address] [facility] Department [place] [address] * (ABNORMAL) Differential, auto (06/26/2024 6:17 AM CDT) Neutrophil abs 5.43 1.50 - 6.50 K/cumm YURI Comment:Testing performed by : [address] [address] Imm gran abs 0.28(H) 0.00 - 0.10 K/cumm YURI Comment:Testing performed by : [address] [address] Lymphocyte abs 4.08(H) 0.80 - 3.30 K/cumm YURI Comment:Testing performed by : [address] [address] Monocyte abs 0.60 0.20 - 0.80 K/cumm YURI Comment:Testing performed by : [address] [address] Eosinophil abs 0.18 0.00 - 0.50 K/cumm YURI Comment:Testing performed by : [address] [address] Basophil abs 0.08 0.00 - 0.10 K/cumm YURI Comment:Testing performed by : [address] [address] Neutrophil pct 51.0 % YURI Comment: Interpretive Data Percent cell count reference ranges are not reported, since discordance with absolute values may lead to misinterpretation of CBC data. Current Interpretive Data was last revised on 2017. Testing performed by: [address] [address] Imm gran pct 2.6 % YURI Comment: Interpretive Data Percent cell count reference ranges are not reported, since discordance with absolute values may lead to misinterpretation of CBC data. Current Interpretive Data was last revised on 2017. Testing performed by: [address] [address] Lymphocyte pct 38.3 % YURI Comment: Interpretive Data Percent cell count reference ranges are not reported, since discordance with absolute values may lead to misinterpretation of CBC data. Current Interpretive Data was last revised on 2017. Testing performed by: [address] [address] Monocyte pct 5.6 % YURI Comment: Interpretive Data Percent cell count reference ranges are not reported, since discordance with absolute values may lead to misinterpretation of CBC data. Current Interpretive Data was last revised on 2017. Testing performed by: [address] [address] Eosinophil pct 1.7 % YURI Comment: Interpretive Data Percent cell count reference ranges are not reported, since discordance with absolute values may lead to misinterpretation of CBC data. Current Interpretive Data was last revised on 2017. Testing performed by: [address] [address] Basophil pct 0.8 % YURI Comment: Interpretive Data Percent cell count reference ranges are not reported, since discordance with absolute values may lead to misinterpretation of CBC data. Current Interpretive Data was last revised on 2017. Testing performed by: [address] [address] Blood 06/26/2024 6:17 AM CDT 06/26/2024 8:28 AM CDT us Notinfile Unknown LAB BLOOD ORDERABLES Final Res ult YURI 7144 [facility] Department of Laboratories [place], [place] [id number] * (ABNORMAL) CBC with auto differential (06/26/2024 6:17 AM CDT) WBC 10.65(H) 3.80 - 9.90 K/cumm YURI Comment:Testing performed by : [address] [address] Hgb 12.4 11.9 - 15.5 g/dL YURI Comment:Testing performed by : [address], [address] Hct 38.3 35.6 - 45.5 % YURI Comment:Testing performed by : [address], [address] Plt 416(H) 150 - 400 K/cumm YURI Comment:Testing performed by : [address], [address] MPV 10.0 9.1 - 12.3 fL YURI Comment:Testing performed by : [address], [address] RBC 4.17 3.90 - 5.20 M/cumm YURI Comment:Testing performed by : [address], [address] MCV 91.8 81.3 - 96.4 fL YURI Comment:Testing performed by : [address], [address] MCH 29.7 27.1 - 33.3 pg YURI Comment:Testing performed by : [address], [address] MCHC 32.4 32.3 - 35.7 g/dL YURI Comment:Testing performed by : [address], [address] RDW CV 13.7 11.1 - 14.9 % YURI Comment:Testing performed by : [address], [address] RDW SD 46.0 35.7 - 48.1 fL YURI Comment:Testing performed by : [address], [address] NRBC abs 0.00 0.00 - 0.01 K/cumm YURI Comment:Testing performed by : [address], [address] Blood 06/26/2024 6:17 AM CDT 06/26/2024 8:28 AM CDT us Notinfile Unknown LAB BLOOD ORDERABLES Final Res ult YURI 45[address] [facility] Department [place] [address] * (ABNORMAL) Basic metabolic panel (06/26/2024 6:17 AM CDT) Sodium 140 135 - 145 mmol/L YURI Comment:Testing performed by : [address] [address] Potassium, pl 4.4 3.3 - 4.9 mmol/L YURI Comment:Testing performed by : [address] [address] Chloride 104 97 - 110 mmol/L YURI Comment:Testing performed by : [address] [address] CO2 27 22 - 32 mmol/L YURI Comment:Testing performed by : [address] [address] Anion gap 9 2 - 15 mmol/L YURI Comment:Testing performed by : [address] [address] BUN 29(H) 6 - 25 mg/dL YURI Comment:Testing performed by : [address] [address] Creatinine 1.10 0.60 - 1.10 mg/dL YURI Comment:Testing performed by : [address] [address] Glucose 159 70 - 199 mg/dL YURI [...] was last revised 2022. Testing performed by: [address] [address] Calcium 11.7(H) 8.5 - 10.3 mg/dL YURI Comment:Testing performed by : [facility], [address] [place] [address]., [address] Blood 06/26/2024 6:17 AM CDT 06/26/2024 8:28 AM CDT us Notinfile Unknown LAB BLOOD ORDERABLES Final Res ult Performing Organization Address [facility] de Phone Number [facility] [address] [facility] [place] [address] * (ABNORMAL) eGFR (06/25/2024 6:07 AM CDT) [...] was last reviewed 2020. Testing performed by: [facility], [address] [place] [address]., [address] Blood 06/25/2024 6:07 AM CDT 06/25/2024 8:38 AM CDT us Notinfile Unknown LAB BLOOD ORDERABLES Final Res ult Performing Organization Address [facility] Co de Phone Number CERNER [address] Department [place] [address] * (ABNORMAL) Differential, auto (06/25/2024 6:07 AM CDT) Neutrophil abs 5.39 1.50 - 6.50 K/cumm YURI Comment:Testing performed by : [address] [address] Imm gran abs 0.52(H) 0.00 - 0.10 K/cumm YURI Comment:Testing performed by : [address] [address] Lymphocyte abs 4.13(H) 0.80 - 3.30 K/cumm YURI Comment:Testing performed by : [address] [address] Monocyte abs 0.72 0.20 - 0.80 K/cumm YURI Comment:Testing performed by : [address] [address] Eosinophil abs 0.18 0.00 - 0.50 K/cumm YURI Comment:Testing performed by : [address] [address] Basophil abs 0.10 0.00 - 0.10 K/cumm YURI Comment:Testing performed by : [address] [address] Neutrophil pct 48.9 % [facility] Comment: Interpretive Data Percent cell count reference ranges are not reported, since discordance with absolute values may lead to misinterpretation of CBC data. Current Interpretive Data was last revised on 2017. Testing performed by: [address] [address] Imm gran pct 4.7 % [facility] Comment: Interpretive Data Percent cell count reference ranges are not reported, since discordance with absolute values may lead to misinterpretation of CBC data. Current Interpretive Data was last revised on 2017. Testing performed by: [address] [address] Lymphocyte pct 37.4 % [facility] Comment: Interpretive Data Percent cell count reference ranges are not reported, since discordance with absolute values may lead to misinterpretation of CBC data. Current Interpretive Data was last revised on 2017. Testing performed by: [address] [address] Monocyte pct 6.5 % YURI Comment: Interpretive Data Percent cell count reference ranges are not reported, since discordance with absolute values may lead to misinterpretation of CBC data. Current Interpretive Data was last revised on 2017. Testing performed by: [address] [address] Eosinophil pct 1.6 % YURI Comment: Interpretive Data Percent cell count reference ranges are not reported, since discordance with absolute values may lead to misinterpretation of CBC data. Current Interpretive Data was last revised on 2017. Testing performed by: [address] [address] Basophil pct 0.9 % YURI Comment: Interpretive Data Percent cell count reference ranges are not reported, since discordance with absolute values may lead to misinterpretation of CBC data. Current Interpretive Data was last revised on 2017. Testing performed by: [address] [address] Blood 06/25/2024 6:07 AM CDT 06/25/2024 8:38 AM CDT us Notinfile Unknown LAB BLOOD ORDERABLES Final Res ult YURI 1016 [facility] Department [place] [address] * (ABNORMAL) CBC with auto differential (06/25/2024 6:07 AM CDT) WBC 11.04(H) 3.80 - 9.90 K/cumm YURI WILLS Comment:Testing performed by : [address] [address] Hgb 12.1 11.9 - 15.5 g/dL YURI WILLS Comment:Testing performed by : [address] [address] Hct 37.2 35.6 - 45.5 % YURI WILLS Comment:Testing performed by : [address] [address] Plt 396 150 - 400 K/cumm YURI Comment:Testing performed by : [address] [address] MPV 10.1 9.1 - 12.3 fL YURI Comment:Testing performed by : [address] [address] RBC 4.07 3.90 - 5.20 M/cumm YURI Comment:Testing performed by : [address] [address] MCV 91.4 81.3 - 96.4 fL YURI Comment:Testing performed by : [address] [address] MCH 29.7 27.1 - 33.3 pg YURI Comment:Testing performed by : [address] [address] MCHC 32.5 32.3 - 35.7 g/dL YURI Comment:Testing performed by : [address] [address] RDW CV 13.4 11.1 - 14.9 % YURI Comment:Testing performed by : [address] [address] RDW SD 45.2 35.7 - 48.1 fL YURI Comment:Testing performed by : [address] [address] NRBC abs 0.00 0.00 - 0.01 K/cumm YURI Comment:Testing performed by : [address] [address] Blood 06/25/2024 6:07 AM CDT 06/25/2024 8:38 AM CDT us Notinfile Unknown LAB BLOOD ORDERABLES Final Res ult YURI [facility] Department of Laboratories [place], [place] [id number] * (ABNORMAL) Comprehensive metabolic panel (06/25/2024 6:07 AM CDT) Sodium 141 135 - 145 mmol/L YURI Comment:Testing performed by : [address] [address] Potassium, pl 4.7 3.3 - 4.9 mmol/L YURI Comment:Testing performed by : [address] [address] Chloride 104 97 - 110 mmol/L YURI Comment:Testing performed by : [address] [address] CO2 29 22 - 32 mmol/L YURI Comment:Testing performed by : [address] [address] Anion gap 8 2 - 15 mmol/L YURI Comment:Testing performed by : [address] [address] BUN 32(H) 6 - 25 mg/dL YURI Comment:Testing performed by : [address] [address] Creatinine 1.30(H) 0.60 - 1.10 mg/dL YURI Comment:Testing performed by : [address] [address] Glucose 135 70 - 199 mg/dL YURI [...] was last revised 2022. Testing performed by: [address] [address] Calcium 11.8(H) 8.5 - 10.3 mg/dL YURI Comment:Testing performed by : [address] [address] Bilirubin, total 0.2 0.1 - 1.2 mg/dL YURI Comment:Testing performed by : [address] [address] Protein, pl 7.0 6.5 - 8.5 g/dL YURI Comment:Testing performed by : [address] [address] Albumin 3.6 3.5 - 5.0 g/dL YURI Comment:Testing performed by : [address] [address] Alk phos 70 40 - 130 Units/L YURI Comment:Testing performed by : [address] [address] ALT 34 7 - 45 Units/L YURI Comment:Testing performed by : [address] [address] AST 28 10 - 45 Units/L YURI Comment:Testing performed by : [address] [address] Blood 06/25/2024 6:07 AM CDT 06/25/2024 8:38 AM CDT us Notinfile Unknown LAB BLOOD ORDERABLES Final Res ult [facility] Department [place] [address] * (ABNORMAL) Basic metabolic panel (06/25/2024 6:07 AM CDT) Sodium 141 135 - 145 mmol/L YURI Comment:Testing performed by : [address] [address] Potassium, pl 4.7 3.3 - 4.9 mmol/L YURI Comment:Testing performed by : [address] [address] Chloride 104 97 - 110 mmol/L YURI Comment:Testing performed by : [address] [address] CO2 29 22 - 32 mmol/L YURI Comment:Testing performed by : [address] [address] Anion gap 8 2 - 15 mmol/L YURI Comment:Testing performed by : [address] [address] BUN 32(H) 6 - 25 mg/dL YURI Comment:Testing performed by : [address] [address] Creatinine 1.30(H) 0.60 - 1.10 mg/dL YURI Comment:Testing performed by : [address] [address] Glucose 135 70 - 199 mg/dL YURI [...] was last revised 2022. Testing performed by: [address] [address] Calcium 11.8(H) 8.5 - 10.3 mg/dL YURI Comment:Testing performed by : [address] [address] Blood 06/25/2024 6:07 AM CDT 06/25/2024 8:38 AM CDT us Notinfile Unknown LAB BLOOD ORDERABLES Final Res ult YURI WILLS [address] [facility] Department of Laboratories [place], [place] [id number] * (ABNORMAL) eGFR (06/24/2024 6:10 AM CDT) [facility] eGFR 43(L) >=60 mL/min/1. 73 m2 YURI [...] was last reviewed 2020. Testing performed by: [address] [address] Blood 06/24/2024 6:10 AM CDT 06/24/2024 8:23 AM CDT us Notinfile Unknown LAB BLOOD ORDERABLES Final Res ult YURI WILLS [address] [facility] [facility] Department of Laboratories [place], [place] [id number] * (ABNORMAL) Basic metabolic panel (06/24/2024 6:10 AM CDT) Sodium 138 135 - 145 mmol/L YURI WILLS Comment:Testing performed by : [address] [address] Potassium, pl 4.3 3.3 - 4.9 mmol/L YURI WILLS Comment:Testing performed by : [address] [address] Chloride 102 97 - 110 mmol/L YURI WILLS Comment:Testing performed by : [address] [address] CO2 26 22 - 32 mmol/L YURI WILLS Comment:Testing performed by : [address] [address] Anion gap 10 2 - 15 mmol/L YURI WILLS Comment:Testing performed by : [address] [address] BUN 30(H) 6 - 25 mg/dL YURI WILLS Comment:Testing performed by : [address] [address] Creatinine 1.26(H) 0.60 - 1.10 mg/dL YURI WILLS Comment:Testing performed by : [address] [address] Glucose 128 70 - 199 mg/dL YURI [...] was last revised 2022. Testing performed by: [address] [address] Calcium 12.4(H) 8.5 - 10.3 mg/dL YURI WILLS Comment:Testing performed by : [address] [address] Blood 06/24/2024 6:10 AM CDT 06/24/2024 8:23 AM CDT us Notinfile Unknown LAB BLOOD ORDERABLES Final Res ult YURI WILLS 0241 [facility] Department [place] [address] * (ABNORMAL) eGFR (06/22/2024 6:34 [...] was last reviewed 2020. Testing performed by: [address] [address] Blood 06/22/2024 6:34 AM CDT 06/22/2024 8:09 AM CDT us Notinfile Unknown LAB BLOOD ORDERABLES Final Res ult YURI 7838 [facility] Department [place] [address] * (ABNORMAL) Differential, auto (06/22/2024 6:34 AM CDT) Neutrophil abs 4.82 1.50 - 6.50 K/cumm YURI Comment:Testing performed by : [address] [address] Imm gran abs 0.59(H) 0.00 - 0.10 K/cumm YURI Comment:Testing performed by : [address] [address] Lymphocyte abs 3.15 0.80 - 3.30 K/cumm UYRI Comment:Testing performed by : [address] [address] Monocyte abs 0.61 0.20 - 0.80 K/cumm YURI Comment:Testing performed by : [address] [address] Eosinophil abs 0.17 0.00 - 0.50 K/cumm YURI Comment:Testing performed by : [address] [address] Basophil abs 0.08 0.00 - 0.10 K/cumm CERJIMY Comment:Testing performed by : [address] [address] Neutrophil pct 51.2 % [facility] Comment: Interpretive Data Percent cell count reference ranges are not reported, since discordance with absolute values may lead to misinterpretation of CBC data. Current Interpretive Data was last revised on 2017. Testing performed by: [address] [address] Imm gran pct 6.3 % [facility] Comment: Interpretive Data Percent cell count reference ranges are not reported, since discordance with absolute values may lead to misinterpretation of CBC data. Current Interpretive Data was last revised on 2017. Testing performed by: [address] [address] Lymphocyte pct 33.4 % [facility] Comment: Interpretive Data Percent cell count reference ranges are not reported, since discordance with absolute values may lead to misinterpretation of CBC data. Current Interpretive Data was last revised on 2017. Testing performed by: [address] [address] Monocyte pct 6.5 % [facility] Comment: Interpretive Data Percent cell count reference ranges are not reported, since discordance with absolute values may lead to misinterpretation of CBC data. Current Interpretive Data was last revised on 2017. Testing performed by: [address] [address] Eosinophil pct 1.8 % [facility] Comment: Interpretive Data Percent cell count reference ranges are not reported, since discordance with absolute values may lead to misinterpretation of CBC data. Current Interpretive Data was last revised on 2017. Testing performed by: [address] [address] Basophil pct 0.8 % [facility] Comment: Interpretive Data Percent cell count reference ranges are not reported, since discordance with absolute values may lead to misinterpretation of CBC data. Current Interpretive Data was last revised on 2017. Testing performed by: [address] [address] Blood 06/22/2024 6:34 AM CDT 06/22/2024 8:09 AM CDT us Notinfile Unknown LAB BLOOD ORDERABLES Final Res ult YURI 4500 [facility] Department [place] [address] * (ABNORMAL) CBC with auto differential (06/22/2024 6:34 AM CDT) WBC 9.42 3.80 - 9.90 K/cumm YURI WILLS Comment:Testing performed by : [address] [address] Hgb 11.7(L) 11.9 - 15.5 g/dL YURI Comment:Testing performed by : [address] [address] Hct 35.9 35.6 - 45.5 % YURI Comment:Testing performed by : [address] [address] Plt 367 150 - 400 K/cumm YURI Comment:Testing performed by : [address] [address] MPV 9.9 9.1 - 12.3 fL YURI Comment:Testing performed by : [address] [address] RBC 3.95 3.90 - 5.20 M/cumm YURI WILLS Comment:Testing performed by : [address] [address] MCV 90.9 81.3 - 96.4 fL YURI WILLS Comment:Testing performed by : [address] [address] MCH 29.6 27.1 - 33.3 pg YURI WILLS Comment:Testing performed by : [address] [address] MCHC 32.6 32.3 - 35.7 g/dL YURI WILLS Comment:Testing performed by : [address] [address] RDW CV 13.3 11.1 - 14.9 % YURI WILLS Comment:Testing performed by : [address] [address] RDW SD 43.8 35.7 - 48.1 fL YURI WILLS Comment:Testing performed by : [address] [address] NRBC abs 0.00 0.00 - 0.01 K/cumm YURI WILLS Comment:Testing performed by : [address] [address] Blood 06/22/2024 6:34 AM CDT 06/22/2024 8:09 AM CDT us Notinfile Unknown LAB BLOOD ORDERABLES Final Res ult Performing Organization Address City[facility] Co de Phone Number [address] [place] [address] * Vitamin D 25 hydroxy (06/22/2024 6:34 AM CDT) Vitamin D 25-OH 64.0 30.0 - 80.0 ng/mL YURI Blood 06/22/2024 6:34 AM CDT 06/22/2024 10:32 AM CDT us Notinfile Unknown LAB BLOOD ORDERABLES Final Res ult Performing Organization Address City/State/[facility] Co de Phone Number [address] [place] [address] * Magnesium (06/22/2024 6:34 AM CDT) Magnesium 1.7 1.4 - 2.5 mg/dL YURI WILLS Comment:Testing performed by : [address] [address] Blood 06/22/2024 6:34 AM CDT 06/22/2024 8:09 AM CDT us Notinfile Unknown LAB BLOOD ORDERABLES Final Res ult BANNERJIMY 4500 [facility] Department [place] [address] * (ABNORMAL) Basic metabolic panel (06/22/2024 6:34 AM CDT) Sodium 140 135 - 145 mmol/L YURI Comment:Testing performed by : [address] [address] Potassium, pl 4.1 3.3 - 4.9 mmol/L YURI Comment:Testing performed by : [address] [address] Chloride 105 97 - 110 mmol/L YURI Comment:Testing performed by : [address] [address] CO2 26 22 - 32 mmol/L YURI Comment:Testing performed by : [address] [address] Anion gap 9 2 - 15 mmol/L YURI Comment:Testing performed by : [address] [address] BUN 22 6 - 25 mg/dL YURI Comment:Testing performed by : [address] [address] Creatinine 1.15(H) 0.60 - 1.10 mg/dL YURI Comment:Testing performed by : [address] [address] Glucose 128 70 - 199 mg/dL YURI [...] was last revised 2022. Testing performed by: [facility], [address] [place] [address]., [address] Calcium 11.1(H) 8.5 - 10.3 mg/dL YURI WILLS Comment:Testing performed by : [address] [address] Blood 06/22/2024 6:34 AM CDT 06/22/2024 8:09 AM CDT us Notinfile Unknown LAB BLOOD ORDERABLES Final Res ult YURI WILLS 4505 [facility] Department [place] [address] * (ABNORMAL) eGFR (06/19/2024 6:30 AM CDT) [...] was last reviewed 2020. Testing performed by: [address] [address] Blood 06/19/2024 6:30 AM CDT 06/19/2024 8:31 AM CDT us Notinfile Unknown LAB BLOOD ORDERABLES Final Res ult YURI 4500 [facility] Department [place] [address] * (ABNORMAL) Differential, auto (06/19/2024 6:30 AM CDT) Neutrophil abs 5.74 1.50 - 6.50 K/cumm YURI Comment:Testing performed by : [address] [address] Imm gran abs 0.10 0.00 - 0.10 K/cumm YURI Comment:Testing performed by : [address] [address] Lymphocyte abs 2.83 0.80 - 3.30 K/cumm YURI Comment:Testing performed by : [address] [address] Monocyte abs 1.06(H) 0.20 - 0.80 K/cumm YURI Comment:Testing performed by : [address] [address] Eosinophil abs 0.16 0.00 - 0.50 K/cumm YURI Comment:Testing performed by : [address] [address] Basophil abs 0.04 0.00 - 0.10 K/cumm YURI Comment:Testing performed by : [address] [address] Neutrophil pct 57.8 % YURI Comment: Interpretive Data Percent cell count reference ranges are not reported, since discordance with absolute values may lead to misinterpretation of CBC data. Current Interpretive Data was last revised on 2017. Testing performed by: [address] [address] Imm gran pct 1.0 % YURI Comment: Interpretive Data Percent cell count reference ranges are not reported, since discordance with absolute values may lead to misinterpretation of CBC data. Current Interpretive Data was last revised on 2017. Testing performed by: [address] [address] Lymphocyte pct 28.5 % YURI Comment: Interpretive Data Percent cell count reference ranges are not reported, since discordance with absolute values may lead to misinterpretation of CBC data. Current Interpretive Data was last revised on 2017. Testing performed by: [address] [address] Monocyte pct 10.7 % YURI Comment: Interpretive Data Percent cell count reference ranges are not reported, since discordance with absolute values may lead to misinterpretation of CBC data. Current Interpretive Data was last revised on 2017. Testing performed by: [address] [address] Eosinophil pct 1.6 % YURI Comment: Interpretive Data Percent cell count reference ranges are not reported, since discordance with absolute values may lead to misinterpretation of CBC data. Current Interpretive Data was last revised on 2017. Testing performed by: [address] [address] Basophil pct 0.4 % YURI Comment: Interpretive Data Percent cell count reference ranges are not reported, since discordance with absolute values may lead to misinterpretation of CBC data. Current Interpretive Data was last revised on 2017. Testing performed by: [address] [address] Blood 06/19/2024 6:30 AM CDT 06/19/2024 8:31 AM CDT us Notinfile Unknown LAB BLOOD ORDERABLES Final Res ult YURI WILLS 7441 [facility] Department [place] [address] * (ABNORMAL) CBC with auto differential (06/19/2024 6:30 AM CDT) WBC 9.93(H) 3.80 - 9.90 K/cumm YURI WILLS Comment:Testing performed by : [address] [place]., [address] Hgb 11.0(L) 11.9 - 15.5 g/dL YURI Comment:Testing performed by : [address] [address] Hct 34.0(L) 35.6 - 45.5 % YURI Comment:Testing performed by : [address] [address] Plt 262 150 - 400 K/cumm YURI Comment:Testing performed by : [address], [address] MPV 10.2 9.1 - 12.3 fL YURI Comment:Testing performed by : [address], [address] RBC 3.74(L) 3.90 - 5.20 M/cumm YURI Comment:Testing performed by : [address], [address] MCV 90.9 81.3 - 96.4 fL YURI Comment:Testing performed by : [address], [address] MCH 29.4 27.1 - 33.3 pg YURI Comment:Testing performed by : [address] [address] MCHC 32.4 32.3 - 35.7 g/dL YURI Comment:Testing performed by : [address], [address] RDW CV 13.2 11.1 - 14.9 % YURI Comment:Testing performed by : [address], [address] RDW SD 44.6 35.7 - 48.1 fL YURI Comment:Testing performed by : [address] [address] NRBC abs 0.00 0.00 - 0.01 K/cumm YURI Comment:Testing performed by : [address], [address] Blood 06/19/2024 6:30 AM CDT 06/19/2024 8:31 AM CDT us Notinfile Unknown LAB BLOOD ORDERABLES Final Res ult YURI 3292 [facility] Department [place] [address] * (ABNORMAL) Comprehensive metabolic panel (06/19/2024 6:30 AM CDT) Sodium 140 135 - 145 mmol/L YURI Comment:Testing performed by : [address] [address] Potassium, pl 3.7 3.3 - 4.9 mmol/L YURI Comment:Testing performed by : [address] [address] Chloride 104 97 - 110 mmol/L YURI Comment:Testing performed by : [address] [address] CO2 26 22 - 32 mmol/L YURI Comment:Testing performed by : [address] [address] Anion gap 10 2 - 15 mmol/L YURI Comment:Testing performed by : [address] [address] BUN 24 6 - 25 mg/dL YURI Comment:Testing performed by : [address] [address] Creatinine 1.06 0.60 - 1.10 mg/dL YURI Comment:Testing performed by : [address] [address] Glucose 123 70 - 199 mg/dL YURI [...] was last revised 2022. Testing performed by: [facility], [address] [place] [address]., [address] Calcium 11.2(H) 8.5 - 10.3 mg/dL YURI Comment:Testing performed by : [address] [address] Bilirubin, total 0.4 0.1 - 1.2 mg/dL YURI Comment:Testing performed by : [address] [address] Protein, pl 7.1 6.5 - 8.5 g/dL YURI Comment:Testing performed by : [address] [address] Albumin 3.4(L) 3.5 - 5.0 g/dL YURI Comment:Testing performed by : [address] [address] Alk phos 73 40 - 130 Units/L YURI Comment:Testing performed by : [address] [address] ALT 16 7 - 45 Units/L YURI Comment:Testing performed by : [address] [address] AST 22 10 - 45 Units/L YURI Comment:Testing performed by : [address] [address] Blood 06/19/2024 6:30 AM CDT 06/19/2024 8:31 AM CDT us Notinfile Unknown LAB BLOOD ORDERABLES Final Res ult YURI 2424 [facility] Department [place] [address] from Last 3 Months Insurance MEDICARE BLUE ACCESS OOS MEDICARE BLUE ACCESS OOS IDPA Care 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
--- OUTSIDE RECORDS SUMMARY | 2024-08-12 11:15 | XMS_ITS | Referral Summary ---
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 Gender Identity Not on file Sexual Orientation Not on file Last Filed Vital Signs Vital Sign Reading Time Taken Comments Blood Pressure 150/69 04/02/2024 2:02 PM ELIGIBILITY AND OCCUPANCY INTERVIEWER Pulse 80 04/02/2024 2:02 PM ELIGIBILITY AND OCCUPANCY INTERVIEWER Temperature 36.9 C (98.4 F) 04/02/2024 2:02 PM ELIGIBILITY AND OCCUPANCY INTERVIEWER Respiratory Rate 18 04/02/2024 2:02 PM ELIGIBILITY AND OCCUPANCY INTERVIEWER Oxygen Saturation 95% 04/02/2024 2:02 PM ELIGIBILITY AND OCCUPANCY INTERVIEWER Inhaled Oxygen Concentration - - Weight 87.6 kg (193 lb 2 oz) 04/02/2024 10:49 AM ELIGIBILITY AND OCCUPANCY INTERVIEWER Height 162.6 cm (5' 4) 04/02/2024 10:49 AM ELIGIBILITY AND OCCUPANCY INTERVIEWER Body Mass Index 33.15 04/02/2024 10:49 AM ELIGIBILITY AND OCCUPANCY INTERVIEWER Plan of Treatment Not on file Medical Devices Implanted Type Area Fire Crew Specialist Device Identifier Shelf Expiration Date Model / Serial / Lot [employer] Rohan Stent Ureteral Set Double Pigtail Tapered Tip Contour [id number] Hydroplus Coated [id number] - [id number] Implanted:Qty: 1 on 04/02/2024 by Bassem Narayan MD at [facility] Left: Ureter [employer] Rohan 12/01/2026 [id number] / / [id number] Explanted Type Area Fire Crew Specialist Device Identifier Shelf Expiration Date Model / Serial / Lot [employer] Rohan Contour 7fr 24cm Large Inner Lumen Low Profile Bladder Sabino Taper Latex Free 180-232 - [id number] Implanted:Qty: 1 on 03/12/2024 by Bassme Narayan MD at [facility] Explanted:Qty: 1 on 04/02/2024 at [facility] Left: Ureter [employer] Rohan 08/30/2025 [id number] / / [id number] Procedures Procedure Name Priority Date/Time Associated Diagnosis [...] Yellow Yellow YURI Comment:Testing performed by : [address] [address] Clarity, ur Clear Clear YURI Comment:Testing performed by : [address] [address] Specific gravity, ur 1.013 1.003 - 1.030 YURI Comment:Testing performed by : [address] [address] pH, urine 5.5 YURI WILLS Comment: Interpretive Data Urine pH is affected by diet, medications, systemic acid-base disturbances, and renal tubular function. pH may affect urinary stone formation. For example, urine pH below 6.0 may help reduce the tendency for calcium phosphate stones and pH greater than 6.0 may reduce the tendency for uric acid stone formation. Source: [facility] [employer] [place] Current Interpretive Data was last revised on 2017 Testing performed by: [facility], [address] [place] [address]., [address] Protein, ur ql Negative Negative YURI Comment:Testing performed by : [address], [place]., [address] Glucose, ur ql Negative Negative YURI Comment:Testing performed by : [address], [place]., [address] Ketones, ur Negative Negative YURI Comment:Testing performed by : [address], [place]., [address] Bilirubin, ur Negative Negative YURI Comment:Testing performed by : [address], [place]., [address] Blood, ur Negative Negative YURI Comment:Testing performed by : [address], [place]., [address] Urobilinogen, ur <2.0 <2.0 mg/dL YURI Comment:Testing performed by : [address], [place]., [address] Nitrite, ur Negative Negative YURI Comment:Testing performed by : [address] [address] Leukocyte esterase, ur Negative Negative YURI Comment:Testing performed by : [address], [place]., [address] UA reflex comment Reflex conditions for microscopic UA not met. YURI Comment:Testing performed by : [address], [place]., [address] Urine 06/29/2024 9:00 AM CDT 06/29/2024 1:22 PM CDT us Notinfile Unknown LAB URINE ORDERABLES Final Res ult YURI WILLS [address] [facility] Department [place] [address] * COVID-19 Coronavirus RNA Nasopharyngeal (06/29/2024 8:50 AM CDT) COVID-19 RNA Negative Negative LUISJIMY Comment:Testing performed by : [facility], [address] [place] [address]., [address] Nasopharyngeal 06/29/2024 8: 50 AM CDT 06/29/2024 1:22 PM CDT us Notinfile Unknown LAB MICROBIOLOGY - GENERAL ORD ERABLES Final Result YURI [address] [facility] Department [place] [address] * eGFR (06/29/2024 8:45 AM CDT) eGFR [...] was last reviewed 2020. Testing performed by: [facility], [address] [place] [address]., [address] Blood 06/29/2024 8:45 AM CDT 06/29/2024 1:22 PM CDT us Notinfile Unknown LAB BLOOD ORDERABLES Final Res ult YURI [address] [facility] Department [place] [address] * Differential, auto (06/29/2024 8:45 AM CDT) Neutrophil abs 4.34 1.50 - 6.50 K/cumm YURI Comment:Testing performed by : [address] [address] Imm gran abs 0.07 0.00 - 0.10 K/cumm YURI Comment:Testing performed by : [address] [address] Lymphocyte abs 2.97 0.80 - 3.30 K/cumm YURI Comment:Testing performed by : [address] [address] Monocyte abs 0.49 0.20 - 0.80 K/cumm YURI Comment:Testing performed by : [address] [address] Eosinophil abs 0.14 0.00 - 0.50 K/cumm YURI Comment:Testing performed by : [address] [address] Basophil abs 0.05 0.00 - 0.10 K/cumm YURI Comment:Testing performed by : [address] [address] Neutrophil pct 53.9 % YURI Comment: Interpretive Data Percent cell count reference ranges are not reported, since discordance with absolute values may lead to misinterpretation of CBC data. Current Interpretive Data was last revised on 2017. Testing performed by: [address] [address] Imm gran pct 0.9 % YURI Comment: Interpretive Data Percent cell count reference ranges are not reported, since discordance with absolute values may lead to misinterpretation of CBC data. Current Interpretive Data was last revised on 2017. Testing performed by: [address] [address] Lymphocyte pct 36.8 % YURI Comment: Interpretive Data Percent cell count reference ranges are not reported, since discordance with absolute values may lead to misinterpretation of CBC data. Current Interpretive Data was last revised on 2017. Testing performed by: [address] [address] Monocyte pct 6.1 % YURI Comment: Interpretive Data Percent cell count reference ranges are not reported, since discordance with absolute values may lead to misinterpretation of CBC data. Current Interpretive Data was last revised on 2017. Testing performed by: [address] [address] Eosinophil pct 1.7 % YURI Comment: Interpretive Data Percent cell count reference ranges are not reported, since discordance with absolute values may lead to misinterpretation of CBC data. Current Interpretive Data was last revised on 2017. Testing performed by: [address] [address] Basophil pct 0.6 % YURI Comment: Interpretive Data Percent cell count reference ranges are not reported, since discordance with absolute values may lead to misinterpretation of CBC data. Current Interpretive Data was last revised on 2017. Testing performed by: [address] [address] Blood 06/29/2024 8:45 AM CDT 06/29/2024 1:22 PM CDT us Notinfile Unknown LAB BLOOD ORDERABLES Final Res ult YURI [address] [facility] Department of Laboratories [place], [place] [id number] * (ABNORMAL) CBC with auto differential (06/29/2024 8:45 AM CDT) WBC 8.06 3.80 - 9.90 K/cumm YURI WILLS Comment:Testing performed by : [address] [address] Hgb 12.4 11.9 - 15.5 g/dL YURI WILLS Comment:Testing performed by : [address] [address] Hct 38.8 35.6 - 45.5 % YURI Comment:Testing performed by : [address] [address] Plt 367 150 - 400 K/cumm YURI Comment:Testing performed by : [address] [address] MPV 10.6 9.1 - 12.3 fL YURI Comment:Testing performed by : [address], [address] RBC 4.27 3.90 - 5.20 M/cumm YURI Comment:Testing performed by : [address], [address] MCV 90.9 81.3 - 96.4 fL YURI Comment:Testing performed by : [address], [address] MCH 29.0 27.1 - 33.3 pg YURI Comment:Testing performed by : [address], [address] MCHC 32.0(L) 32.3 - 35.7 g/dL YURI Comment:Testing performed by : [address], [address] RDW CV 13.7 11.1 - 14.9 % YURI Comment:Testing performed by : [address], [address] RDW SD 45.7 35.7 - 48.1 fL YURI Comment:Testing performed by : [address], [address] NRBC abs 0.00 0.00 - 0.01 K/cumm YURI Comment:Testing performed by : [address], [address] Blood 06/29/2024 8:45 AM CDT 06/29/2024 1:22 PM CDT us Notinfile Unknown LAB BLOOD ORDERABLES Final Res ult YURI [address] [facility] Department [place] [address] * (ABNORMAL) Comprehensive metabolic panel (06/29/2024 8:45 AM CDT) Sodium 138 135 - 145 mmol/L YURI Comment:Testing performed by : [address] [address] Potassium, pl 3.9 3.3 - 4.9 mmol/L YURI Comment: Hemolyzed; Potassium value may be falsely elevated by as much as 1.0 mmol/L. Suggest redraw and reanalysis. Testing performed by: [address] [address] Chloride 102 97 - 110 mmol/L YURI Comment:Testing performed by : [address] [address] CO2 22 22 - 32 mmol/L YURI Comment:Testing performed by : [address] [address] Anion gap 14 2 - 15 mmol/L YURI Comment:Testing performed by : [address] [address] BUN 23 6 - 25 mg/dL YURI Comment:Testing performed by : [address] [address] Creatinine 0.90 0.60 - 1.10 mg/dL YURI Comment:Testing performed by : [address] [address] Glucose 238(H) 70 - 199 mg/dL YURI [...] was last revised 2022. Testing performed by: [facility], [address] [place] [address]., [address] Calcium 11.2(H) 8.5 - 10.3 mg/dL YURI Comment:Testing performed by : [address] [address] Bilirubin, total 0.3 0.1 - 1.2 mg/dL YURI Comment:Testing performed by : [address] [address] Protein, pl 7.4 6.5 - 8.5 g/dL YURI Comment:Testing performed by : [address] [address] Albumin 3.8 3.5 - 5.0 g/dL YURI Comment:Testing performed by : [address] [address] Alk phos 72 40 - 130 Units/L YURI Comment:Testing performed by : [address] [address] ALT 25 7 - 45 Units/L YURI Comment:Testing performed by : [address] [address] AST 23 10 - 45 Units/L YURI Comment:Testing performed by : [address] [address] Blood 06/29/2024 8:45 AM CDT 06/29/2024 1:22 PM CDT us Notinfile Unknown LAB BLOOD ORDERABLES Final Res ult LUISJIMY [address] [facility] Department [place] [address] * (ABNORMAL) eGFR (06/26/2024 6:17 [...] was last reviewed 2020. Testing performed by: [address] [address] Blood 06/26/2024 6:17 AM CDT 06/26/2024 8:28 AM CDT us Notinfile Unknown LAB BLOOD ORDERABLES Final Res ult YURI [address] [facility] Department [place] [address] * (ABNORMAL) Differential, auto (06/26/2024 6:17 AM CDT) Neutrophil abs 5.43 1.50 - 6.50 K/cumm YURI Comment:Testing performed by : [address] [address] Imm gran abs 0.28(H) 0.00 - 0.10 K/cumm YURI Comment:Testing performed by : [address] [address] Lymphocyte abs 4.08(H) 0.80 - 3.30 K/cumm YURI Comment:Testing performed by : [address] [address] Monocyte abs 0.60 0.20 - 0.80 K/cumm YURI Comment:Testing performed by : [address] [address] Eosinophil abs 0.18 0.00 - 0.50 K/cumm [facility] Comment:Testing performed by : [address] [address] Basophil abs 0.08 0.00 - 0.10 K/cumm [facility]:Testing performed by : [address] [address] Neutrophil pct 51.0 % [facility] Comment: Interpretive Data Percent cell count reference ranges are not reported, since discordance with absolute values may lead to misinterpretation of CBC data. Current Interpretive Data was last revised on 2017. Testing performed by: [address] [address] Imm gran pct 2.6 % [facility] Comment: Interpretive Data Percent cell count reference ranges are not reported, since discordance with absolute values may lead to misinterpretation of CBC data. Current Interpretive Data was last revised on 2017. Testing performed by: [address] [address] Lymphocyte pct 38.3 % [facility] Comment: Interpretive Data Percent cell count reference ranges are not reported, since discordance with absolute values may lead to misinterpretation of CBC data. Current Interpretive Data was last revised on 2017. Testing performed by: [address] [address] Monocyte pct 5.6 % [facility] Comment: Interpretive Data Percent cell count reference ranges are not reported, since discordance with absolute values may lead to misinterpretation of CBC data. Current Interpretive Data was last revised on 2017. Testing performed by: [address] [address] Eosinophil pct 1.7 % [facility] Comment: Interpretive Data Percent cell count reference ranges are not reported, since discordance with absolute values may lead to misinterpretation of CBC data. Current Interpretive Data was last revised on 2017. Testing performed by: [address] [address] Basophil pct 0.8 % [facility] Comment: Interpretive Data Percent cell count reference ranges are not reported, since discordance with absolute values may lead to misinterpretation of CBC data. Current Interpretive Data was last revised on 2017. Testing performed by: [address] [address] Blood 06/26/2024 6:17 AM CDT 06/26/2024 8:28 AM CDT us Notinfile Unknown LAB BLOOD ORDERABLES Final Res ult YURI [address] [facility] Department [place] [address] * (ABNORMAL) CBC with auto differential (06/26/2024 6:17 AM CDT) WBC 10.65(H) 3.80 - 9.90 K/cumm YURI WILLS Comment:Testing performed by : [address] [address] Hgb 12.4 11.9 - 15.5 g/dL YURI WILLS Comment:Testing performed by : [address] [address] Hct 38.3 35.6 - 45.5 % YURI Comment:Testing performed by : [address] [address] Plt 416(H) 150 - 400 K/cumm YURI Comment:Testing performed by : [address] [address] MPV 10.0 9.1 - 12.3 fL YURI WILSL Comment:Testing performed by : [address] [address] RBC 4.17 3.90 - 5.20 M/cumm YURI WILLS Comment:Testing performed by : [address] [address] MCV 91.8 81.3 - 96.4 fL YURI WILLS Comment:Testing performed by : [address] [address] MCH 29.7 27.1 - 33.3 pg YURI WILLS Comment:Testing performed by : [address] [address] MCHC 32.4 32.3 - 35.7 g/dL YURI WILLS Comment:Testing performed by : [address] [address] RDW CV 13.7 11.1 - 14.9 % YURI WILLS Comment:Testing performed by : [address] [address] RDW SD 46.0 35.7 - 48.1 fL YURI WILLS Comment:Testing performed by : [address] [address] NRBC abs 0.00 0.00 - 0.01 K/cumm UYRI WILLS Comment:Testing performed by : [address] [address] Blood 06/26/2024 6:17 AM CDT 06/26/2024 8:28 AM CDT us Notinfile Unknown LAB BLOOD ORDERABLES Final Res ult YURI [facility] Department [place] [address] * (ABNORMAL) Basic metabolic panel (06/26/2024 6:17 AM CDT) Sodium 140 135 - 145 mmol/L YURI WILLS Comment:Testing performed by : [address] [address] Potassium, pl 4.4 3.3 - 4.9 mmol/L YURI WILLS Comment:Testing performed by : [address] [address] Chloride 104 97 - 110 mmol/L YURI WILLS Comment:Testing performed by : [address] [address] CO2 27 22 - 32 mmol/L YURI WILLS Comment:Testing performed by : [address] [address] Anion gap 9 2 - 15 mmol/L YURI WILLS Comment:Testing performed by : [address] [address] BUN 29(H) 6 - 25 mg/dL YURI WILLS Comment:Testing performed by : [address] [address] Creatinine 1.10 0.60 - 1.10 mg/dL YURI WILLS Comment:Testing performed by : [address] [address] Glucose 159 70 - 199 mg/dL YURI [...] was last revised 2022. Testing performed by: [address] [address] Calcium 11.7(H) 8.5 - 10.3 mg/dL YURI Comment:Testing performed by : [address] [address] Blood 06/26/2024 6:17 AM CDT 06/26/2024 8:28 AM CDT us Notinfile Unknown LAB BLOOD ORDERABLES Final Res ult YURI [address] [facility] Department [place] [address] * (ABNORMAL) eGFR (06/25/2024 6:07 [...] was last reviewed 2020. Testing performed by: [address] [address] Blood 06/25/2024 6:07 AM CDT 06/25/2024 8:38 AM CDT us Notinfile Unknown LAB BLOOD ORDERABLES Final Res ult YURI [facility] Department [place] [address] * (ABNORMAL) Differential, auto (06/25/2024 6:07 AM CDT) Neutrophil abs 5.39 1.50 - 6.50 K/cumm YURI Comment:Testing performed by : [address] [address] Imm gran abs 0.52(H) 0.00 - 0.10 K/cumm YURI Comment:Testing performed by : [address] [address] Lymphocyte abs 4.13(H) 0.80 - 3.30 K/cumm YURI Comment:Testing performed by : [address] [address] Monocyte abs 0.72 0.20 - 0.80 K/cumm YURI Comment:Testing performed by : [address] [address] Eosinophil abs 0.18 0.00 - 0.50 K/cumm YURI Comment:Testing performed by : [address] [address] Basophil abs 0.10 0.00 - 0.10 K/cumm YURI Comment:Testing performed by : [address] [address] Neutrophil pct 48.9 % [facility] Comment: Interpretive Data Percent cell count reference ranges are not reported, since discordance with absolute values may lead to misinterpretation of CBC data. Current Interpretive Data was last revised on 2017. Testing performed by: [address] [address] Imm gran pct 4.7 % [facility] Comment: Interpretive Data Percent cell count reference ranges are not reported, since discordance with absolute values may lead to misinterpretation of CBC data. Current Interpretive Data was last revised on 2017. Testing performed by: [address] [address] Lymphocyte pct 37.4 % [facility] Comment: Interpretive Data Percent cell count reference ranges are not reported, since discordance with absolute values may lead to misinterpretation of CBC data. Current Interpretive Data was last revised on 2017. Testing performed by: [address] [address] Monocyte pct 6.5 % [facility] Comment: Interpretive Data Percent cell count reference ranges are not reported, since discordance with absolute values may lead to misinterpretation of CBC data. Current Interpretive Data was last revised on 2017. Testing performed by: [address] [address] Eosinophil pct 1.6 % [facility] Comment: Interpretive Data Percent cell count reference ranges are not reported, since discordance with absolute values may lead to misinterpretation of CBC data. Current Interpretive Data was last revised on 2017. Testing performed by: [address] [address] Basophil pct 0.9 % [facility] Comment: Interpretive Data Percent cell count reference ranges are not reported, since discordance with absolute values may lead to misinterpretation of CBC data. Current Interpretive Data was last revised on 2017. Testing performed by: [address] [address] Blood 06/25/2024 6:07 AM CDT 06/25/2024 8:38 AM CDT us Notinfile Unknown LAB BLOOD ORDERABLES Final Res ult YURI WILLS [address] [facility] Department [place] [address] * (ABNORMAL) CBC with auto differential (06/25/2024 6:07 AM CDT) WBC 11.04(H) 3.80 - 9.90 K/cumm YURI Comment:Testing performed by : [address] [address] Hgb 12.1 11.9 - 15.5 g/dL YURI Comment:Testing performed by : [address] [address] Hct 37.2 35.6 - 45.5 % YURI Comment:Testing performed by : [address] [address] Plt 396 150 - 400 K/cumm YURI Comment:Testing performed by : [address] [address] MPV 10.1 9.1 - 12.3 fL YURI Comment:Testing performed by : [address] [address] RBC 4.07 3.90 - 5.20 M/cumm YURI WILLS Comment:Testing performed by : [address] [address] MCV 91.4 81.3 - 96.4 fL YURI Comment:Testing performed by : [address] [address] MCH 29.7 27.1 - 33.3 pg YURI WILLS Comment:Testing performed by : [address] [address] MCHC 32.5 32.3 - 35.7 g/dL YURI Comment:Testing performed by : [address], [address] RDW CV 13.4 11.1 - 14.9 % YURI WILLS Comment:Testing performed by : [address] [address] RDW SD 45.2 35.7 - 48.1 fL YURI WILLS Comment:Testing performed by : [address] [address] NRBC abs 0.00 0.00 - 0.01 K/cumm YURI WILLS Comment:Testing performed by : [address] [address] Blood 06/25/2024 6:07 AM CDT 06/25/2024 8:38 AM CDT us Notinfile Unknown LAB BLOOD ORDERABLES Final Res ult YURI [address] [facility] Department [place] [address] * (ABNORMAL) Comprehensive metabolic panel (06/25/2024 6:07 AM CDT) Sodium 141 135 - 145 mmol/L YURI Comment:Testing performed by : [address] [address] Potassium, pl 4.7 3.3 - 4.9 mmol/L YURI Comment:Testing performed by : [address] [address] Chloride 104 97 - 110 mmol/L YURI Comment:Testing performed by : [address] [address] CO2 29 22 - 32 mmol/L YUIR Comment:Testing performed by : [address] [address] Anion gap 8 2 - 15 mmol/L YURI Comment:Testing performed by : [address] [address] BUN 32(H) 6 - 25 mg/dL YRUI Comment:Testing performed by : [address] [address] Creatinine 1.30(H) 0.60 - 1.10 mg/dL YURI Comment:Testing performed by : [address] [address] Glucose 135 70 - 199 mg/dL YURI [...] was last revised 2022. Testing performed by: [address] [address] Calcium 11.8(H) 8.5 - 10.3 mg/dL YURI Comment:Testing performed by : [address] [address] Bilirubin, total 0.2 0.1 - 1.2 mg/dL YURI Comment:Testing performed by : [address] [address] Protein, pl 7.0 6.5 - 8.5 g/dL YURI Comment:Testing performed by : [address] [address] Albumin 3.6 3.5 - 5.0 g/dL YURI Comment:Testing performed by : [address] [address] Alk phos 70 40 - 130 Units/L YURI Comment:Testing performed by : [address] [address] ALT 34 7 - 45 Units/L YURI Comment:Testing performed by : [address] [address] AST 28 10 - 45 Units/L YURI Comment:Testing performed by : [address] [address] Blood 06/25/2024 6:07 AM CDT 06/25/2024 8:38 AM CDT us Notinfile Unknown LAB BLOOD ORDERABLES Final Res ult LUISJIMY ELMA [address] [facility] Department [place] [address] * (ABNORMAL) Basic metabolic panel (06/25/2024 6:07 AM CDT) Sodium 141 135 - 145 mmol/L YURI Comment:Testing performed by : [address] [address] Potassium, pl 4.7 3.3 - 4.9 mmol/L YURI Comment:Testing performed by : [address] [address] Chloride 104 97 - 110 mmol/L YURI Comment:Testing performed by : [address] [address] CO2 29 22 - 32 mmol/L YURI Comment:Testing performed by : [address] [address] Anion gap 8 2 - 15 mmol/L YURI Comment:Testing performed by : [address] [address] BUN 32(H) 6 - 25 mg/dL YURI Comment:Testing performed by : [address] [address] Creatinine 1.30(H) 0.60 - 1.10 mg/dL YURI Comment:Testing performed by : [address] [address] Glucose 135 70 - 199 mg/dL YURI [...] was last revised 2022. Testing performed by: [facility], [address] [place] [address]., [address] Calcium 11.8(H) 8.5 - 10.3 mg/dL YURI WILLS Comment:Testing performed by : [facility], [address] [place] [address]., [address] Blood 06/25/2024 6:07 AM CDT 06/25/2024 8:38 AM CDT us Notinfile Unknown LAB BLOOD ORDERABLES Final Res ult YURI WILLS [address] [facility] Department [place] [address] * (ABNORMAL) eGFR (06/24/2024 6:10 [...] was last reviewed 2020. Testing performed by: [facility], [address] [place] [address]., [address] Blood 06/24/2024 6:10 AM CDT 06/24/2024 8:23 AM CDT us Notinfile Unknown LAB BLOOD ORDERABLES Final Res ult YURI [address] [facility] Department [place] [address] * (ABNORMAL) Basic metabolic panel (06/24/2024 6:10 AM CDT) Sodium 138 135 - 145 mmol/L YURI Comment:Testing performed by : [address] [address] Potassium, pl 4.3 3.3 - 4.9 mmol/L YURI Comment:Testing performed by : [address] [address] Chloride 102 97 - 110 mmol/L YURI Comment:Testing performed by : [address] [address] CO2 26 22 - 32 mmol/L YURI Comment:Testing performed by : [address] [address] Anion gap 10 2 - 15 mmol/L YURI Comment:Testing performed by : [address] [address] BUN 30(H) 6 - 25 mg/dL YURI Comment:Testing performed by : [address] [address] Creatinine 1.26(H) 0.60 - 1.10 mg/dL YURI Comment:Testing performed by : [address] [address] Glucose 128 70 - 199 mg/dL YURI [...] 2022. Testing performed by: [facility], [address] [place] [address]., [id number] Calcium 12.4(H) 8.5 - 10.3 mg/dL YURI Comment:Testing performed by : [address] [address] Blood 06/24/2024 6:10 AM CDT 06/24/2024 8:23 AM CDT us Notinfile Unknown LAB BLOOD ORDERABLES Final Res ult Performing Organization Address [facility] Co de Phone Number YURI [address] [facility] Department [place] [address] * (ABNORMAL) eGFR (06/22/2024 6:34 [...] was last reviewed 2020. Testing performed by: [facility], [address] [place] [address]., [id number] Blood 06/22/2024 6:34 AM CDT 06/22/2024 8:09 AM CDT us Notinfile Unknown LAB BLOOD ORDERABLES Final Res ult Performing Organization Address City/[facility]/ZIP Co de Phone Number YURI [address] [facility] Department [place] [address] * (ABNORMAL) Differential, auto (06/22/2024 6:34 AM CDT) Neutrophil abs 4.82 1.50 - 6.50 K/cumm YURI Comment:Testing performed by : [address] [address] Imm gran abs 0.59(H) 0.00 - 0.10 K/cumm YURI Comment:Testing performed by : [address] [address] Lymphocyte abs 3.15 0.80 - 3.30 K/cumm YURI Comment:Testing performed by : [address] [address] Monocyte abs 0.61 0.20 - 0.80 K/cumm YURI Comment:Testing performed by : [address] [address] Eosinophil abs 0.17 0.00 - 0.50 K/cumm YURI Comment:Testing performed by : [address] [address] Basophil abs 0.08 0.00 - 0.10 K/cumm YURI Comment:Testing performed by : [address] [address] Neutrophil pct 51.2 % YURI Comment: Interpretive Data Percent cell count reference ranges are not reported, since discordance with absolute values may lead to misinterpretation of CBC data. Current Interpretive Data was last revised on 2017. Testing performed by: [address] [address] Imm gran pct 6.3 % YURI Comment: Interpretive Data Percent cell count reference ranges are not reported, since discordance with absolute values may lead to misinterpretation of CBC data. Current Interpretive Data was last revised on 2017. Testing performed by: [address] [address] Lymphocyte pct 33.4 % YURI Comment: Interpretive Data Percent cell count reference ranges are not reported, since discordance with absolute values may lead to misinterpretation of CBC data. Current Interpretive Data was last revised on 2017. Testing performed by: [address] [address] Monocyte pct 6.5 % YURI Comment: Interpretive Data Percent cell count reference ranges are not reported, since discordance with absolute values may lead to misinterpretation of CBC data. Current Interpretive Data was last revised on 2017. Testing performed by: [address] [address] Eosinophil pct 1.8 % YURI Comment: Interpretive Data Percent cell count reference ranges are not reported, since discordance with absolute values may lead to misinterpretation of CBC data. Current Interpretive Data was last revised on 2017. Testing performed by: [address] [address] Basophil pct 0.8 % YURI Comment: Interpretive Data Percent cell count reference ranges are not reported, since discordance with absolute values may lead to misinterpretation of CBC data. Current Interpretive Data was last revised on 2017. Testing performed by: [address] [address] Blood 06/22/2024 6:34 AM CDT 06/22/2024 8:09 AM CDT us Notinfile Unknown LAB BLOOD ORDERABLES Final Res ult YURI [address] [facility] Department of Laboratories [place], [place] [id number] * (ABNORMAL) CBC with auto differential (06/22/2024 6:34 AM CDT) WBC 9.42 3.80 - 9.90 K/cumm YURI WILLS Comment:Testing performed by : [address] [address] Hgb 11.7(L) 11.9 - 15.5 g/dL YURI WILLS Comment:Testing performed by : [address] [address] Hct 35.9 35.6 - 45.5 % YURI WILLS Comment:Testing performed by : [address] [address] Plt 367 150 - 400 K/cumm YURI WILLS Comment:Testing performed by : [address] [address] MPV 9.9 9.1 - 12.3 fL YURI WILLS Comment:Testing performed by : [address] [address] RBC 3.95 3.90 - 5.20 M/cumm YURI WILLS Comment:Testing performed by : [address], [address] MCV 90.9 81.3 - 96.4 fL YURI Comment:Testing performed by : [address] [address] MCH 29.6 27.1 - 33.3 pg YURI WILLS Comment:Testing performed by : [address], [address] MCHC 32.6 32.3 - 35.7 g/dL YURI Comment:Testing performed by : [address], [address] RDW CV 13.3 11.1 - 14.9 % YURI Comment:Testing performed by : [address] [address] RDW SD 43.8 35.7 - 48.1 fL YURI Comment:Testing performed by : [address] [address] NRBC abs 0.00 0.00 - 0.01 K/cumm YURI Comment:Testing performed by : [address] [address] Blood 06/22/2024 6:34 AM CDT 06/22/2024 8:09 AM CDT us Notinfile Unknown LAB BLOOD ORDERABLES Final Res ult YURI WILLS [address] [facility] [place] [address] * Vitamin D 25 hydroxy (06/22/2024 6:34 AM CDT) [facility] Vitamin D 25-OH 64.0 30.0 - 80.0 ng/mL YURI Blood 06/22/2024 6:34 AM CDT 06/22/2024 10:32 AM CDT us Notinfile Unknown LAB BLOOD ORDERABLES Final Res ult Performing Organization Address City/[facility] Co de Phone Number [address] [address] * Magnesium (06/22/2024 6:34 AM CDT) [facility] Magnesium 1.7 1.4 - 2.5 mg/dL YURI Comment:Testing performed by : [address] [address] Blood 06/22/2024 6:34 AM CDT 06/22/2024 8:09 AM CDT us Notinfile Unknown LAB BLOOD ORDERABLES Final Res ult Performing Organization Address [facility] Co de Phone Number LUIS[address] [address] * (ABNORMAL) Basic metabolic panel (06/22/2024 6:34 AM CDT) [facility] Sodium 140 135 - 145 mmol/L YURI Comment:Testing performed by : [address] [address] Potassium, pl 4.1 3.3 - 4.9 mmol/L YURI Comment:Testing performed by : [address] [address] Chloride 105 97 - 110 mmol/L YURI Comment:Testing performed by : [address] [address] CO2 26 22 - 32 mmol/L YURI Comment:Testing performed by : [address] [address] Anion gap 9 2 - 15 mmol/L YURI WILLS Comment:Testing performed by : [address] [address] BUN 22 6 - 25 mg/dL YURI Comment:Testing performed by : [address] [address] Creatinine 1.15(H) 0.60 - 1.10 mg/dL YURI Comment:Testing performed by : [address] [address] Glucose 128 70 - 199 mg/dL YURI [...] was last revised 2022. Testing performed by: [address] [address] Calcium 11.1(H) 8.5 - 10.3 mg/dL YURI Comment:Testing performed by : [address] [address] Blood 06/22/2024 6:34 AM CDT 06/22/2024 8:09 AM CDT us Notinfile Unknown LAB BLOOD ORDERABLES Final Res ult YURI WILLS [address] [facility] Department [place] [address] * (ABNORMAL) eGFR (06/19/2024 6:30 [...] was last reviewed 2020. Testing performed by: [address] [address] Blood 06/19/2024 6:30 AM CDT 06/19/2024 8:31 AM CDT us Notinfile Unknown LAB BLOOD ORDERABLES Final Res ult YURI [address] [facility] Department [place] [address] * (ABNORMAL) Differential, auto (06/19/2024 6:30 AM CDT) Neutrophil abs 5.74 1.50 - 6.50 K/cumm YURI Comment:Testing performed by : [address] [address] Imm gran abs 0.10 0.00 - 0.10 K/cumm YURI Comment:Testing performed by : [address] [address] Lymphocyte abs 2.83 0.80 - 3.30 K/cumm YURI Comment:Testing performed by : [address] [address] Monocyte abs 1.06(H) 0.20 - 0.80 K/cumm YURI Comment:Testing performed by : [address] [address] Eosinophil abs 0.16 0.00 - 0.50 K/cumm [facility] Comment:Testing performed by : [address] [address] Basophil abs 0.04 0.00 - 0.10 K/cumm CERJIMY Comment:Testing performed by : [address] [address] Neutrophil pct 57.8 % [facility] Comment: Interpretive Data Percent cell count reference ranges are not reported, since discordance with absolute values may lead to misinterpretation of CBC data. Current Interpretive Data was last revised on 2017. Testing performed by: [address] [address] Imm gran pct 1.0 % [facility] Comment: Interpretive Data Percent cell count reference ranges are not reported, since discordance with absolute values may lead to misinterpretation of CBC data. Current Interpretive Data was last revised on 2017. Testing performed by: [address] [address] Lymphocyte pct 28.5 % [facility] Comment: Interpretive Data Percent cell count reference ranges are not reported, since discordance with absolute values may lead to misinterpretation of CBC data. Current Interpretive Data was last revised on 2017. Testing performed by: [address] [address] Monocyte pct 10.7 % [facility] Comment: Interpretive Data Percent cell count reference ranges are not reported, since discordance with absolute values may lead to misinterpretation of CBC data. Current Interpretive Data was last revised on 2017. Testing performed by: [address] [address] Eosinophil pct 1.6 % [facility] Comment: Interpretive Data Percent cell count reference ranges are not reported, since discordance with absolute values may lead to misinterpretation of CBC data. Current Interpretive Data was last revised on 2017. Testing performed by: [address] [address] Basophil pct 0.4 % [facility] Comment: Interpretive Data Percent cell count reference ranges are not reported, since discordance with absolute values may lead to misinterpretation of CBC data. Current Interpretive Data was last revised on 2017. Testing performed by: [address] [address] Blood 06/19/2024 6:30 AM CDT 06/19/2024 8:31 AM CDT us Notinfile Unknown LAB BLOOD ORDERABLES Final Res ult YURI [address] [facility] Department [place] [address] * (ABNORMAL) CBC with auto differential (06/19/2024 6:30 AM CDT) WBC 9.93(H) 3.80 - 9.90 K/cumm YURI Comment:Testing performed by : [address] [address] Hgb 11.0(L) 11.9 - 15.5 g/dL YURI Comment:Testing performed by : [address] [address] Hct 34.0(L) 35.6 - 45.5 % YURI Comment:Testing performed by : [address] [address] Plt 262 150 - 400 K/cumm YURI Comment:Testing performed by : [address] [address] MPV 10.2 9.1 - 12.3 fL YURI Comment:Testing performed by : [address] [address] RBC 3.74(L) 3.90 - 5.20 M/cumm YURI Comment:Testing performed by : [address] [address] MCV 90.9 81.3 - 96.4 fL YURI Comment:Testing performed by : [address] [address] MCH 29.4 27.1 - 33.3 pg YURI WILLS Comment:Testing performed by : [address] [address] MCHC 32.4 32.3 - 35.7 g/dL YURI WILLS Comment:Testing performed by : [address] [address] RDW CV 13.2 11.1 - 14.9 % YURI WILLS Comment:Testing performed by : [address] [address] RDW SD 44.6 35.7 - 48.1 fL YURI WILLS Comment:Testing performed by : [address] [address] NRBC abs 0.00 0.00 - 0.01 K/cumm YURI WILLS Comment:Testing performed by : [address] [address] Blood 06/19/2024 6:30 AM CDT 06/19/2024 8:31 AM CDT us Notinfile Unknown LAB BLOOD ORDERABLES Final Res ult YURI [facility] Department of Laboratories [place], [place] [id number] * (ABNORMAL) Comprehensive metabolic panel (06/19/2024 6:30 AM CDT) Sodium 140 135 - 145 mmol/L YURI WILLS Comment:Testing performed by : [address] [address] Potassium, pl 3.7 3.3 - 4.9 mmol/L YURI WILLS Comment:Testing performed by : [address] [address] Chloride 104 97 - 110 mmol/L YURI WILLS Comment:Testing performed by : [address] [address] CO2 26 22 - 32 mmol/L YURI WILLS Comment:Testing performed by : [address] [address] Anion gap 10 2 - 15 mmol/L YURI WILLS Comment:Testing performed by : [address] [address] BUN 24 6 - 25 mg/dL YURI Comment:Testing performed by : [address] [address] Creatinine 1.06 0.60 - 1.10 mg/dL YURI Comment:Testing performed by : [address] [address] Glucose 123 70 - 199 mg/dL YURI [...] was last revised 2022. Testing performed by: [address] [address] Calcium 11.2(H) 8.5 - 10.3 mg/dL YURI Comment:Testing performed by : [address] [address] Bilirubin, total 0.4 0.1 - 1.2 mg/dL YURI Comment:Testing performed by : [address] [address] Protein, pl 7.1 6.5 - 8.5 g/dL YURI Comment:Testing performed by : [address] [address] Albumin 3.4(L) 3.5 - 5.0 g/dL YURI Comment:Testing performed by : [address] [address] Alk phos 73 40 - 130 Units/L YURI Comment:Testing performed by : [address] [address] ALT 16 7 - 45 Units/L YURI Comment:Testing performed by : [address] [address] AST 22 10 - 45 Units/L YURI WILLS Comment:Testing performed by : [facility], [address] [place]., [address] Blood 06/19/2024 6:30 AM CDT 06/19/2024 8:31 AM CDT us Notinfile Unknown LAB BLOOD ORDERABLES Final Res ult YURI WILLS [address] [facility] Department [place] [address] from Last 3 Months Insurance MEDICARE [employer] [facility] Address: [address] [place] [address] MEDICARE BLUE ACCESS [facility] Address: [address] [place] [address] [employer] Care Teams 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
== END 2024-08-12 11:01 | disposition home or self-care (01) ==
PROVIDERS: PCP Internal Medicine; Visit Provider Urology
DX: N20.0 Calculus of kidney (principal)
CPT/HCPCS: 74018

== ENCOUNTER 2024-08-17 13:45 | Outpatient (CLI) | payer MEDICARE, BC, OTHER, SELFPAY ==
--- NOTE | ~2024-08-17 | CT_ITS ---
EXAMINATION: CT abdomen pelvis wo con DATE: 08/17/2024 14:26 INDICATION: Left renal stone TECHNIQUE: Computed tomography (CT) of the abdomen and pelvis was performed without intravenous contr ast. Automated exposure control and iterative reconstruction technique were employed. The dose-length product was 325.88 mGy-cm. COMPARISON: 01/08/2024 FINDINGS: There is compressive atelectasis at the medial aspect of the bilateral lower lobes along side a large sliding-type hiatal hernia which contains the majority the stomach. Additional mild discoid atelecta sis in the lingula and right middle lobe. No pneumonia, pulmonary edema or pleural effusion. Cholecys tectomy clips the gallbladder fossa. Liver, spleen, pancreas and bilateral adrenal glands are normal. 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 The left kidney and ureter appear normal with no urolithiasis or hydronephrosis. Bl adder is normal. Atrophic uterus and bilateral adnexa are unremarkable. There are multiple phlebolith s in the pelvis. No bowel obstruction. No free intraperitoneal gas or fluid. No pathologically enlarg ed abdominal or pelvic lymphadenopathy. Asymmetric fatty atrophy of the right gluteus medias and mini mus muscles potentially related to prior distal tendon tears. Unchanged very small fat-containing umb ilical hernia. Lumbar dextroscoliosis with severe spondylosis. IMPRESSION: 1. Status post right nephrectomy. No left-sided urolithiasis or other acute intra-abdominal/pelvic pr ocess. 2. Large sliding-type hiatal hernia. Reviewed, dictated and finalized at location A. IMPRESSION: 1. Status post right nephrectomy. No left-sided urolithiasis or other acute int ra-abdominal/pelvic process. 2. Large sliding-type hiatal hernia.
--- OUTSIDE RECORDS SUMMARY | 2024-08-17 13:49 | XMS_ITS | Referral Summary ---
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 Name Role Phone No, Physician Primary Care Provider [phone] Encounters Date Type Department Care Team Description 06/19/2024 Orders Only [facility] [phone] Unknown, Notinfile from Last 3 Months Allergies [...] on file Legal Sex Female 10:27 AM [employer] Gender Identity Not on file Sexual Orientation Not on file Last Filed Vital Signs Vital Sign Reading Time Taken Comments Blood Pressure 150/69 04/02/2024 2:02 PM [employer] Pulse 80 04/02/2024 2:02 PM [employer] Temperature 36.9 C (98.4 F) 04/02/2024 2:02 PM [employer] Respiratory Rate 18 04/02/2024 2:02 PM [employer] Oxygen Saturation 95% 04/02/2024 2:02 PM [employer] Inhaled Oxygen Concentration - - Weight 87.6 kg (193 lb 2 oz) 04/02/2024 10:49 AM [employer] Height 162.6 cm (5' 4) 04/02/2024 10:49 AM [employer] Body Mass Index 33.15 04/02/2024 10:49 AM [employer] Plan of Treatment Not on file Medical Devices Implanted Type Area Promotions Director Device Identifier Shelf Expiration Date Model / Serial / Lot [employer] Stent Ureteral Set Double Pigtail Tapered Tip Contour [id number] Hydroplus Coated [id number] - [id number] Implanted:Qty: 1 on 04/02/2024 by Bassem Narayan MD at [facility] Left: Ureter [employer]an 12/01/2026 [id number] / / [id number] Explanted Type Area Promotions Director Device Identifier Shelf Expiration Date Model / Serial / Lot [employer] Roh[employer] Contour 7fr 24cm Large Inner Lumen Low Profile Bladder Sabino Taper Latex Free 180-232 - [id number] Implanted:Qty: 1 on 03/12/2024 by Bassem Narayan MD at [facility] Explanted:Qty: 1 on 04/02/2024 at [facility] Left: Ureter [employer] Rohan 08/30/2025 [id number] / / [id number] Procedures Procedure Name Priority Date/Time Associated Diagnosis [...] Yellow Yellow YURI Comment:Testing performed by : [address] [address] Clarity, ur Clear Clear YURI Comment:Testing performed by : [address] [address] Specific gravity, ur 1.013 1.003 - 1.030 YURI Comment:Testing performed by : [address] [address] pH, urine 5.5 YURI WILLS Comment: Interpretive Data Urine pH is affected by diet, medications, systemic acid-base disturbances, and renal tubular function. pH may affect urinary stone formation. For example, urine pH below 6.0 may help reduce the tendency for calcium phosphate stones and pH greater than 6.0 may reduce the tendency for uric acid stone formation. Source: [facility] Current Interpretive Data was last revised on 2017 Testing performed by: [facility], [address] [place] [address]., [address] Protein, ur ql Negative Negative YURI Comment:Testing performed by : [address], [place]., [address] Glucose, ur ql Negative Negative YURI Comment:Testing performed by : [address], [place]., [address] Ketones, ur Negative Negative YURI Comment:Testing performed by : [address], [place]., [address] Bilirubin, ur Negative Negative YURI Comment:Testing performed by : [address], [place]., [address] Blood, ur Negative Negative YURI Comment:Testing performed by : [address], [place]., [address] Urobilinogen, ur <2.0 <2.0 mg/dL YURI Comment:Testing performed by : [address], [place]., [address] Nitrite, ur Negative Negative YURI Comment:Testing performed by : [address] [address] Leukocyte esterase, ur Negative Negative YURI Comment:Testing performed by : [address], [place]., [address] UA reflex comment Reflex conditions for microscopic UA not met. YURI Comment:Testing performed by : [address], [place]., [address] Urine 06/29/2024 9:00 AM CDT 06/29/2024 1:22 PM CDT us Notinfile Unknown LAB URINE ORDERABLES Final Res ult YURI WILLS [address] [facility] [place] [address] * COVID-19 Coronavirus RNA Nasopharyngeal (06/29/2024 8:50 AM CDT) COVID-19 RNA Negative Negative LUISJIMY Comment:Testing performed by : [facility], [address] [place] [address]., [address] Nasopharyngeal 06/29/2024 8: 50 AM CDT 06/29/2024 1:22 PM CDT us Notinfile Unknown LAB MICROBIOLOGY - GENERAL ORD ERABLES Final Result YURI [address] [facility] [place] [address] * eGFR (06/29/2024 8:45 AM CDT) eGFR [...] was last reviewed 2020. Testing performed by: [facility], [address] [place] [address]., [address] Blood 06/29/2024 8:45 AM CDT 06/29/2024 1:22 PM CDT us Notinfile Unknown LAB BLOOD ORDERABLES Final Res ult YURI [address] [facility] Department [place] [address] * Differential, auto (06/29/2024 8:45 AM CDT) Neutrophil abs 4.34 1.50 - 6.50 K/cumm YURI Comment:Testing performed by : [address] [address] Imm gran abs 0.07 0.00 - 0.10 K/cumm YURI Comment:Testing performed by : [address] [address] Lymphocyte abs 2.97 0.80 - 3.30 K/cumm YURI Comment:Testing performed by : [address] [address] Monocyte abs 0.49 0.20 - 0.80 K/cumm YURI Comment:Testing performed by : [address] [address] Eosinophil abs 0.14 0.00 - 0.50 K/cumm YURI Comment:Testing performed by : [address] [address] Basophil abs 0.05 0.00 - 0.10 K/cumm YURI Comment:Testing performed by : [address] [address] Neutrophil pct 53.9 % YURI Comment: Interpretive Data Percent cell count reference ranges are not reported, since discordance with absolute values may lead to misinterpretation of CBC data. Current Interpretive Data was last revised on 2017. Testing performed by: [address] [address] Imm gran pct 0.9 % YURI Comment: Interpretive Data Percent cell count reference ranges are not reported, since discordance with absolute values may lead to misinterpretation of CBC data. Current Interpretive Data was last revised on 2017. Testing performed by: [address] [address] Lymphocyte pct 36.8 % YURI Comment: Interpretive Data Percent cell count reference ranges are not reported, since discordance with absolute values may lead to misinterpretation of CBC data. Current Interpretive Data was last revised on 2017. Testing performed by: [address] [address] Monocyte pct 6.1 % YURI Comment: Interpretive Data Percent cell count reference ranges are not reported, since discordance with absolute values may lead to misinterpretation of CBC data. Current Interpretive Data was last revised on 2017. Testing performed by: [address] [address] Eosinophil pct 1.7 % YURI Comment: Interpretive Data Percent cell count reference ranges are not reported, since discordance with absolute values may lead to misinterpretation of CBC data. Current Interpretive Data was last revised on 2017. Testing performed by: [address] [address] Basophil pct 0.6 % YURI Comment: Interpretive Data Percent cell count reference ranges are not reported, since discordance with absolute values may lead to misinterpretation of CBC data. Current Interpretive Data was last revised on 2017. Testing performed by: [address] [address] Blood 06/29/2024 8:45 AM CDT 06/29/2024 1:22 PM CDT us Notinfile Unknown LAB BLOOD ORDERABLES Final Res ult YURI [address] [facility] Department of Laboratories [place], [place] [id number] * (ABNORMAL) CBC with auto differential (06/29/2024 8:45 AM CDT) WBC 8.06 3.80 - 9.90 K/cumm YURI WILLS Comment:Testing performed by : [address] [address] Hgb 12.4 11.9 - 15.5 g/dL YURI WILLS Comment:Testing performed by : [address] [address] Hct 38.8 35.6 - 45.5 % YURI Comment:Testing performed by : [address] [address] Plt 367 150 - 400 K/cumm YURI Comment:Testing performed by : [address] [address] MPV 10.6 9.1 - 12.3 fL YURI Comment:Testing performed by : [address], [address] RBC 4.27 3.90 - 5.20 M/cumm YURI Comment:Testing performed by : [address], [address] MCV 90.9 81.3 - 96.4 fL YURI Comment:Testing performed by : [address], [address] MCH 29.0 27.1 - 33.3 pg YURI Comment:Testing performed by : [address], [address] MCHC 32.0(L) 32.3 - 35.7 g/dL YURI Comment:Testing performed by : [address], [address] RDW CV 13.7 11.1 - 14.9 % YURI Comment:Testing performed by : [address], [address] RDW SD 45.7 35.7 - 48.1 fL YURI Comment:Testing performed by : [address], [address] NRBC abs 0.00 0.00 - 0.01 K/cumm YURI Comment:Testing performed by : [address], [address] Blood 06/29/2024 8:45 AM CDT 06/29/2024 1:22 PM CDT us Notinfile Unknown LAB BLOOD ORDERABLES Final Res ult YURI [address] [facility] Department [place] [address] * (ABNORMAL) Comprehensive metabolic panel (06/29/2024 8:45 AM CDT) Sodium 138 135 - 145 mmol/L YURI Comment:Testing performed by : [address] [address] Potassium, pl 3.9 3.3 - 4.9 mmol/L YURI Comment: Hemolyzed; Potassium value may be falsely elevated by as much as 1.0 mmol/L. Suggest redraw and reanalysis. Testing performed by: [address] [address] Chloride 102 97 - 110 mmol/L YURI Comment:Testing performed by : [address] [address] CO2 22 22 - 32 mmol/L YURI Comment:Testing performed by : [address] [address] Anion gap 14 2 - 15 mmol/L YURI Comment:Testing performed by : [address] [address] BUN 23 6 - 25 mg/dL YURI Comment:Testing performed by : [address] [address] Creatinine 0.90 0.60 - 1.10 mg/dL YURI Comment:Testing performed by : [address] [address] Glucose 238(H) 70 - 199 mg/dL YURI [...] was last revised 2022. Testing performed by: [facility], [address] [place] [address]., [address] Calcium 11.2(H) 8.5 - 10.3 mg/dL YURI Comment:Testing performed by : [address] [address] Bilirubin, total 0.3 0.1 - 1.2 mg/dL YURI Comment:Testing performed by : [address] [address] Protein, pl 7.4 6.5 - 8.5 g/dL YURI Comment:Testing performed by : [address] [address] Albumin 3.8 3.5 - 5.0 g/dL YURI Comment:Testing performed by : [address] [address] Alk phos 72 40 - 130 Units/L YURI Comment:Testing performed by : [address] [address] ALT 25 7 - 45 Units/L YURI Comment:Testing performed by : [address] [address] AST 23 10 - 45 Units/L YURI Comment:Testing performed by : [address] [address] Blood 06/29/2024 8:45 AM CDT 06/29/2024 1:22 PM CDT us Notinfile Unknown LAB BLOOD ORDERABLES Final Res ult LUISJIMY [address] [facility] Department [place] [address] * (ABNORMAL) eGFR (06/26/2024 6:17 [...] was last reviewed 2020. Testing performed by: [address] [address] Blood 06/26/2024 6:17 AM CDT 06/26/2024 8:28 AM CDT us Notinfile Unknown LAB BLOOD ORDERABLES Final Res ult YURI [address] [facility] Department [place] [address] * (ABNORMAL) Differential, auto (06/26/2024 6:17 AM CDT) Neutrophil abs 5.43 1.50 - 6.50 K/cumm YURI Comment:Testing performed by : [address] [address] Imm gran abs 0.28(H) 0.00 - 0.10 K/cumm YURI Comment:Testing performed by : [address] [address] Lymphocyte abs 4.08(H) 0.80 - 3.30 K/cumm YURI Comment:Testing performed by : [address] [address] Monocyte abs 0.60 0.20 - 0.80 K/cumm YURI Comment:Testing performed by : [address] [address] Eosinophil abs 0.18 0.00 - 0.50 K/cumm [facility] Comment:Testing performed by : [address] [address] Basophil abs 0.08 0.00 - 0.10 K/cumm [facility] Comment:Testing performed by : [address] [address] Neutrophil pct 51.0 % [facility] Comment: Interpretive Data Percent cell count reference ranges are not reported, since discordance with absolute values may lead to misinterpretation of CBC data. Current Interpretive Data was last revised on 2017. Testing performed by: [address] [address] Imm gran pct 2.6 % [facility] Comment: Interpretive Data Percent cell count reference ranges are not reported, since discordance with absolute values may lead to misinterpretation of CBC data. Current Interpretive Data was last revised on 2017. Testing performed by: [address] [address] Lymphocyte pct 38.3 % [facility] Comment: Interpretive Data Percent cell count reference ranges are not reported, since discordance with absolute values may lead to misinterpretation of CBC data. Current Interpretive Data was last revised on 2017. Testing performed by: [address] [address] Monocyte pct 5.6 % [facility] Comment: Interpretive Data Percent cell count reference ranges are not reported, since discordance with absolute values may lead to misinterpretation of CBC data. Current Interpretive Data was last revised on 2017. Testing performed by: [address] [address] Eosinophil pct 1.7 % [facility] Comment: Interpretive Data Percent cell count reference ranges are not reported, since discordance with absolute values may lead to misinterpretation of CBC data. Current Interpretive Data was last revised on 2017. Testing performed by: [address] [address] Basophil pct 0.8 % [facility] Comment: Interpretive Data Percent cell count reference ranges are not reported, since discordance with absolute values may lead to misinterpretation of CBC data. Current Interpretive Data was last revised on 2017. Testing performed by: [address] [address] Blood 06/26/2024 6:17 AM CDT 06/26/2024 8:28 AM CDT us Notinfile Unknown LAB BLOOD ORDERABLES Final Res ult YURI [address] [facility] Department [place] [address] * (ABNORMAL) CBC with auto differential (06/26/2024 6:17 AM CDT) WBC 10.65(H) 3.80 - 9.90 K/cumm YURI WILLS Comment:Testing performed by : [address] [address] Hgb 12.4 11.9 - 15.5 g/dL YURI WILLS Comment:Testing performed by : [address] [address] Hct 38.3 35.6 - 45.5 % YURI Comment:Testing performed by : [address] [address] Plt 416(H) 150 - 400 K/cumm YURI Comment:Testing performed by : [address] [address] MPV 10.0 9.1 - 12.3 fL YURI WILLS Comment:Testing performed by : [address] [address] RBC 4.17 3.90 - 5.20 M/cumm YURI WILLS Comment:Testing performed by : [address] [address] MCV 91.8 81.3 - 96.4 fL YURI WILLS Comment:Testing performed by : [address] [address] MCH 29.7 27.1 - 33.3 pg YURI WILLS Comment:Testing performed by : [address] [address] MCHC 32.4 32.3 - 35.7 g/dL YURI WILLS Comment:Testing performed by : [address] [address] RDW CV 13.7 11.1 - 14.9 % YURI WILLS Comment:Testing performed by : [address] [address] RDW SD 46.0 35.7 - 48.1 fL YURI WILLS Comment:Testing performed by : [address] [address] NRBC abs 0.00 0.00 - 0.01 K/cumm YURI WILLS Comment:Testing performed by : [address] [address] Blood 06/26/2024 6:17 AM CDT 06/26/2024 8:28 AM CDT us Notinfile Unknown LAB BLOOD ORDERABLES Final Res ult YURI [facility] Department [place] [address] * (ABNORMAL) Basic metabolic panel (06/26/2024 6:17 AM CDT) Sodium 140 135 - 145 mmol/L YURI WILLS Comment:Testing performed by : [address] [address] Potassium, pl 4.4 3.3 - 4.9 mmol/L YURI WILLS Comment:Testing performed by : [address] [address] Chloride 104 97 - 110 mmol/L YURI WILLS Comment:Testing performed by : [address] [address] CO2 27 22 - 32 mmol/L YURI WILLS Comment:Testing performed by : [address] [address] Anion gap 9 2 - 15 mmol/L YURI WILLS Comment:Testing performed by : [address] [address] BUN 29(H) 6 - 25 mg/dL YURI WILLS Comment:Testing performed by : [address] [address] Creatinine 1.10 0.60 - 1.10 mg/dL YURI WILLS Comment:Testing performed by : [address] [address] Glucose 159 70 - 199 mg/dL YURI [...] was last revised 2022. Testing performed by: [address] [address] Calcium 11.7(H) 8.5 - 10.3 mg/dL YURI Comment:Testing performed by : [address] [address] Blood 06/26/2024 6:17 AM CDT 06/26/2024 8:28 AM CDT us Notinfile Unknown LAB BLOOD ORDERABLES Final Res ult YURI [address] [facility] Department [place] [address] * (ABNORMAL) eGFR (06/25/2024 6:07 [...] was last reviewed 2020. Testing performed by: [address] [address] Blood 06/25/2024 6:07 AM CDT 06/25/2024 8:38 AM CDT us Notinfile Unknown LAB BLOOD ORDERABLES Final Res ult YURI [facility] Department [place] [address] * (ABNORMAL) Differential, auto (06/25/2024 6:07 AM CDT) Neutrophil abs 5.39 1.50 - 6.50 K/cumm YURI Comment:Testing performed by : [address] [address] Imm gran abs 0.52(H) 0.00 - 0.10 K/cumm YURI Comment:Testing performed by : [address] [address] Lymphocyte abs 4.13(H) 0.80 - 3.30 K/cumm YURI Comment:Testing performed by : [address] [address] Monocyte abs 0.72 0.20 - 0.80 K/cumm YURI Comment:Testing performed by : [address] [address] Eosinophil abs 0.18 0.00 - 0.50 K/cumm YURI Comment:Testing performed by : [address] [address] Basophil abs 0.10 0.00 - 0.10 K/cumm YURI Comment:Testing performed by : [address] [address] Neutrophil pct 48.9 % [facility] Comment: Interpretive Data Percent cell count reference ranges are not reported, since discordance with absolute values may lead to misinterpretation of CBC data. Current Interpretive Data was last revised on 2017. Testing performed by: [address] [address] Imm gran pct 4.7 % [facility] Comment: Interpretive Data Percent cell count reference ranges are not reported, since discordance with absolute values may lead to misinterpretation of CBC data. Current Interpretive Data was last revised on 2017. Testing performed by: [address] [address] Lymphocyte pct 37.4 % [facility] Comment: Interpretive Data Percent cell count reference ranges are not reported, since discordance with absolute values may lead to misinterpretation of CBC data. Current Interpretive Data was last revised on 2017. Testing performed by: [address] [address] Monocyte pct 6.5 % [facility] Comment: Interpretive Data Percent cell count reference ranges are not reported, since discordance with absolute values may lead to misinterpretation of CBC data. Current Interpretive Data was last revised on 2017. Testing performed by: [address] [address] Eosinophil pct 1.6 % [facility] Comment: Interpretive Data Percent cell count reference ranges are not reported, since discordance with absolute values may lead to misinterpretation of CBC data. Current Interpretive Data was last revised on 2017. Testing performed by: [address] [address] Basophil pct 0.9 % [facility] Comment: Interpretive Data Percent cell count reference ranges are not reported, since discordance with absolute values may lead to misinterpretation of CBC data. Current Interpretive Data was last revised on 2017. Testing performed by: [address] [address] Blood 06/25/2024 6:07 AM CDT 06/25/2024 8:38 AM CDT us Notinfile Unknown LAB BLOOD ORDERABLES Final Res ult YURI WILLS [address] [facility] Department [place] [address] * (ABNORMAL) CBC with auto differential (06/25/2024 6:07 AM CDT) WBC 11.04(H) 3.80 - 9.90 K/cumm YURI Comment:Testing performed by : [address] [address] Hgb 12.1 11.9 - 15.5 g/dL YURI Comment:Testing performed by : [address] [address] Hct 37.2 35.6 - 45.5 % YURI Comment:Testing performed by : [address] [address] Plt 396 150 - 400 K/cumm YURI Comment:Testing performed by : [address] [address] MPV 10.1 9.1 - 12.3 fL YURI Comment:Testing performed by : [address] [address] RBC 4.07 3.90 - 5.20 M/cumm YURI WILLS Comment:Testing performed by : [address] [address] MCV 91.4 81.3 - 96.4 fL YURI Comment:Testing performed by : [address] [address] MCH 29.7 27.1 - 33.3 pg YURI WILLS Comment:Testing performed by : [address] [address] MCHC 32.5 32.3 - 35.7 g/dL YURI Comment:Testing performed by : [address], [address] RDW CV 13.4 11.1 - 14.9 % YURI WILLS Comment:Testing performed by : [address] [address] RDW SD 45.2 35.7 - 48.1 fL YURI WILLS Comment:Testing performed by : [address] [address] NRBC abs 0.00 0.00 - 0.01 K/cumm YURI WILLS Comment:Testing performed by : [address] [address] Blood 06/25/2024 6:07 AM CDT 06/25/2024 8:38 AM CDT us Notinfile Unknown LAB BLOOD ORDERABLES Final Res ult YURI [address] [facility] Department [place] [address] * (ABNORMAL) Comprehensive metabolic panel (06/25/2024 6:07 AM CDT) Sodium 141 135 - 145 mmol/L YURI Comment:Testing performed by : [address] [address] Potassium, pl 4.7 3.3 - 4.9 mmol/L YURI Comment:Testing performed by : [address] [address] Chloride 104 97 - 110 mmol/L YURI Comment:Testing performed by : [address] [address] CO2 29 22 - 32 mmol/L YURI Comment:Testing performed by : [address] [address] Anion gap 8 2 - 15 mmol/L YURI Comment:Testing performed by : [address] [address] BUN 32(H) 6 - 25 mg/dL YURI Comment:Testing performed by : [address] [address] Creatinine 1.30(H) 0.60 - 1.10 mg/dL YURI Comment:Testing performed by : [address] [address] Glucose 135 70 - 199 mg/dL YURI [...] was last revised 2022. Testing performed by: [address] [address] Calcium 11.8(H) 8.5 - 10.3 mg/dL YURI Comment:Testing performed by : [address] [address] Bilirubin, total 0.2 0.1 - 1.2 mg/dL YURI Comment:Testing performed by : [address] [address] Protein, pl 7.0 6.5 - 8.5 g/dL YURI Comment:Testing performed by : [address] [address] Albumin 3.6 3.5 - 5.0 g/dL YURI Comment:Testing performed by : [address] [address] Alk phos 70 40 - 130 Units/L YURI Comment:Testing performed by : [address] [address] ALT 34 7 - 45 Units/L YURI Comment:Testing performed by : [address] [address] AST 28 10 - 45 Units/L YURI Comment:Testing performed by : [address] [address] Blood 06/25/2024 6:07 AM CDT 06/25/2024 8:38 AM CDT us Notinfile Unknown LAB BLOOD ORDERABLES Final Res ult LUISJIMY ELMA [address] [facility] Department [place] [address] * (ABNORMAL) Basic metabolic panel (06/25/2024 6:07 AM CDT) Sodium 141 135 - 145 mmol/L YURI Comment:Testing performed by : [address] [address] Potassium, pl 4.7 3.3 - 4.9 mmol/L YURI Comment:Testing performed by : [address] [address] Chloride 104 97 - 110 mmol/L YURI Comment:Testing performed by : [address] [address] CO2 29 22 - 32 mmol/L YURI Comment:Testing performed by : [address] [address] Anion gap 8 2 - 15 mmol/L YURI Comment:Testing performed by : [address] [address] BUN 32(H) 6 - 25 mg/dL YURI Comment:Testing performed by : [address] [address] Creatinine 1.30(H) 0.60 - 1.10 mg/dL YURI Comment:Testing performed by : [address] [address] Glucose 135 70 - 199 mg/dL YURI [...] was last revised 2022. Testing performed by: [facility], [address] [place] [address]., [address] Calcium 11.8(H) 8.5 - 10.3 mg/dL YURI WILLS Comment:Testing performed by : [facility], [address] [place] [address]., [address] Blood 06/25/2024 6:07 AM CDT 06/25/2024 8:38 AM CDT us Notinfile Unknown LAB BLOOD ORDERABLES Final Res ult YURI WILLS [address] [facility] Department [place] [address] * (ABNORMAL) eGFR (06/24/2024 6:10 [...] was last reviewed 2020. Testing performed by: [facility], [address] [place] [address]., [address] Blood 06/24/2024 6:10 AM CDT 06/24/2024 8:23 AM CDT us Notinfile Unknown LAB BLOOD ORDERABLES Final Res ult YURI [address] [facility] Department [place] [address] * (ABNORMAL) Basic metabolic panel (06/24/2024 6:10 AM CDT) Sodium 138 135 - 145 mmol/L YURI Comment:Testing performed by : [address] [address] Potassium, pl 4.3 3.3 - 4.9 mmol/L YURI Comment:Testing performed by : [address] [address] Chloride 102 97 - 110 mmol/L YURI Comment:Testing performed by : [address] [address] CO2 26 22 - 32 mmol/L YURI Comment:Testing performed by : [address] [address] Anion gap 10 2 - 15 mmol/L YURI Comment:Testing performed by : [address] [address] BUN 30(H) 6 - 25 mg/dL YURI Comment:Testing performed by : [address] [address] Creatinine 1.26(H) 0.60 - 1.10 mg/dL YURI Comment:Testing performed by : [address] [address] Glucose 128 70 - 199 mg/dL YURI [...] 2022. Testing performed by: [facility], [address] [place] [address]., [id number] Calcium 12.4(H) 8.5 - 10.3 mg/dL YURI Comment:Testing performed by : [address] [address] Blood 06/24/2024 6:10 AM CDT 06/24/2024 8:23 AM CDT us Notinfile Unknown LAB BLOOD ORDERABLES Final Res ult Performing Organization Address [facility] Co de Phone Number YURI [address] [facility] [place] [address] * (ABNORMAL) eGFR (06/22/2024 6:34 [...] was last reviewed 2020. Testing performed by: [facility], [address] [place] [address]., [id number] Blood 06/22/2024 6:34 AM CDT 06/22/2024 8:09 AM CDT us Notinfile Unknown LAB BLOOD ORDERABLES Final Res ult Performing Organization Address City/[facility]/ZIP Co de Phone Number YURI [address] [facility] Department [place] [address] * (ABNORMAL) Differential, auto (06/22/2024 6:34 AM CDT) Neutrophil abs 4.82 1.50 - 6.50 K/cumm YURI Comment:Testing performed by : [address] [address] Imm gran abs 0.59(H) 0.00 - 0.10 K/cumm YURI Comment:Testing performed by : [address] [address] Lymphocyte abs 3.15 0.80 - 3.30 K/cumm YURI Comment:Testing performed by : [address] [address] Monocyte abs 0.61 0.20 - 0.80 K/cumm YURI Comment:Testing performed by : [address] [address] Eosinophil abs 0.17 0.00 - 0.50 K/cumm YURI Comment:Testing performed by : [address] [address] Basophil abs 0.08 0.00 - 0.10 K/cumm YURI Comment:Testing performed by : [address] [address] Neutrophil pct 51.2 % YURI Comment: Interpretive Data Percent cell count reference ranges are not reported, since discordance with absolute values may lead to misinterpretation of CBC data. Current Interpretive Data was last revised on 2017. Testing performed by: [address] [address] Imm gran pct 6.3 % YURI Comment: Interpretive Data Percent cell count reference ranges are not reported, since discordance with absolute values may lead to misinterpretation of CBC data. Current Interpretive Data was last revised on 2017. Testing performed by: [address] [address] Lymphocyte pct 33.4 % YURI Comment: Interpretive Data Percent cell count reference ranges are not reported, since discordance with absolute values may lead to misinterpretation of CBC data. Current Interpretive Data was last revised on 2017. Testing performed by: [address] [address] Monocyte pct 6.5 % YURI Comment: Interpretive Data Percent cell count reference ranges are not reported, since discordance with absolute values may lead to misinterpretation of CBC data. Current Interpretive Data was last revised on 2017. Testing performed by: [address] [address] Eosinophil pct 1.8 % YURI Comment: Interpretive Data Percent cell count reference ranges are not reported, since discordance with absolute values may lead to misinterpretation of CBC data. Current Interpretive Data was last revised on 2017. Testing performed by: [address] [address] Basophil pct 0.8 % YURI Comment: Interpretive Data Percent cell count reference ranges are not reported, since discordance with absolute values may lead to misinterpretation of CBC data. Current Interpretive Data was last revised on 2017. Testing performed by: [address] [address] Blood 06/22/2024 6:34 AM CDT 06/22/2024 8:09 AM CDT us Notinfile Unknown LAB BLOOD ORDERABLES Final Res ult YURI [address] [facility] Department of Laboratories [place], [place] [id number] * (ABNORMAL) CBC with auto differential (06/22/2024 6:34 AM CDT) WBC 9.42 3.80 - 9.90 K/cumm YURI WILLS Comment:Testing performed by : [address] [address] Hgb 11.7(L) 11.9 - 15.5 g/dL YURI WILLS Comment:Testing performed by : [address] [address] Hct 35.9 35.6 - 45.5 % YURI WILLS Comment:Testing performed by : [address] [address] Plt 367 150 - 400 K/cumm YURI WILLS Comment:Testing performed by : [address] [address] MPV 9.9 9.1 - 12.3 fL YURI WILLS Comment:Testing performed by : [address] [address] RBC 3.95 3.90 - 5.20 M/cumm YURI WILLS Comment:Testing performed by : [address], [address] MCV 90.9 81.3 - 96.4 fL YURI Comment:Testing performed by : [address] [address] MCH 29.6 27.1 - 33.3 pg YURI WILLS Comment:Testing performed by : [address], [address] MCHC 32.6 32.3 - 35.7 g/dL YURI Comment:Testing performed by : [address], [address] RDW CV 13.3 11.1 - 14.9 % YURI Comment:Testing performed by : [address] [address] RDW SD 43.8 35.7 - 48.1 fL YURI Comment:Testing performed by : [address] [address] NRBC abs 0.00 0.00 - 0.01 K/cumm YURI Comment:Testing performed by : [address] [address] Blood 06/22/2024 6:34 AM CDT 06/22/2024 8:09 AM CDT us Notinfile Unknown LAB BLOOD ORDERABLES Final Res ult YURI WILLS [address] [facility] [place] [address] * Vitamin D 25 hydroxy (06/22/2024 6:34 AM CDT) [facility] Vitamin D 25-OH 64.0 30.0 - 80.0 ng/mL YURI Blood 06/22/2024 6:34 AM CDT 06/22/2024 10:32 AM CDT us Notinfile Unknown LAB BLOOD ORDERABLES Final Res ult Performing Organization Address City/[facility] Co de Phone Number [address] [address] * Magnesium (06/22/2024 6:34 AM CDT) [facility] Magnesium 1.7 1.4 - 2.5 mg/dL YURI Comment:Testing performed by : [address] [address] Blood 06/22/2024 6:34 AM CDT 06/22/2024 8:09 AM CDT us Notinfile Unknown LAB BLOOD ORDERABLES Final Res ult Performing Organization Address [facility] Co de Phone Number LUIS[address] [address] * (ABNORMAL) Basic metabolic panel (06/22/2024 6:34 AM CDT) [facility] Sodium 140 135 - 145 mmol/L YURI Comment:Testing performed by : [address] [address] Potassium, pl 4.1 3.3 - 4.9 mmol/L YURI Comment:Testing performed by : [address] [address] Chloride 105 97 - 110 mmol/L YURI Comment:Testing performed by : [address] [address] CO2 26 22 - 32 mmol/L YURI Comment:Testing performed by : [address] [address] Anion gap 9 2 - 15 mmol/L YURI WILLS Comment:Testing performed by : [address] [address] BUN 22 6 - 25 mg/dL YURI Comment:Testing performed by : [address] [address] Creatinine 1.15(H) 0.60 - 1.10 mg/dL YURI Comment:Testing performed by : [address] [address] Glucose 128 70 - 199 mg/dL YURI [...] was last revised 2022. Testing performed by: [address] [address] Calcium 11.1(H) 8.5 - 10.3 mg/dL YURI Comment:Testing performed by : [address] [address] Blood 06/22/2024 6:34 AM CDT 06/22/2024 8:09 AM CDT us Notinfile Unknown LAB BLOOD ORDERABLES Final Res ult YURI WILLS [address] [facility] Department [place] [address] * (ABNORMAL) eGFR (06/19/2024 6:30 [...] was last reviewed 2020. Testing performed by: [address] [address] Blood 06/19/2024 6:30 AM CDT 06/19/2024 8:31 AM CDT us Notinfile Unknown LAB BLOOD ORDERABLES Final Res ult YURI [address] [facility] Department [place] [address] * (ABNORMAL) Differential, auto (06/19/2024 6:30 AM CDT) Neutrophil abs 5.74 1.50 - 6.50 K/cumm YURI Comment:Testing performed by : [address] [address] Imm gran abs 0.10 0.00 - 0.10 K/cumm YURI Comment:Testing performed by : [address] [address] Lymphocyte abs 2.83 0.80 - 3.30 K/cumm YURI Comment:Testing performed by : [address] [address] Monocyte abs 1.06(H) 0.20 - 0.80 K/cumm YURI Comment:Testing performed by : [address] [address] Eosinophil abs 0.16 0.00 - 0.50 K/cumm [facility] Comment:Testing performed by : [address] [address] Basophil abs 0.04 0.00 - 0.10 K/cumm CERJIMY Comment:Testing performed by : [address] [address] Neutrophil pct 57.8 % [facility] Comment: Interpretive Data Percent cell count reference ranges are not reported, since discordance with absolute values may lead to misinterpretation of CBC data. Current Interpretive Data was last revised on 2017. Testing performed by: [address] [address] Imm gran pct 1.0 % [facility] Comment: Interpretive Data Percent cell count reference ranges are not reported, since discordance with absolute values may lead to misinterpretation of CBC data. Current Interpretive Data was last revised on 2017. Testing performed by: [address] [address] Lymphocyte pct 28.5 % [facility] Comment: Interpretive Data Percent cell count reference ranges are not reported, since discordance with absolute values may lead to misinterpretation of CBC data. Current Interpretive Data was last revised on 2017. Testing performed by: [address] [address] Monocyte pct 10.7 % [facility] Comment: Interpretive Data Percent cell count reference ranges are not reported, since discordance with absolute values may lead to misinterpretation of CBC data. Current Interpretive Data was last revised on 2017. Testing performed by: [address] [address] Eosinophil pct 1.6 % [facility] Comment: Interpretive Data Percent cell count reference ranges are not reported, since discordance with absolute values may lead to misinterpretation of CBC data. Current Interpretive Data was last revised on 2017. Testing performed by: [address] [address] Basophil pct 0.4 % [facility] Comment: Interpretive Data Percent cell count reference ranges are not reported, since discordance with absolute values may lead to misinterpretation of CBC data. Current Interpretive Data was last revised on 2017. Testing performed by: [address] [address] Blood 06/19/2024 6:30 AM CDT 06/19/2024 8:31 AM CDT us Notinfile Unknown LAB BLOOD ORDERABLES Final Res ult YURI [address] [facility] [place] [address] * (ABNORMAL) CBC with auto differential (06/19/2024 6:30 AM CDT) WBC 9.93(H) 3.80 - 9.90 K/cumm YURI Comment:Testing performed by : [address] [address] Hgb 11.0(L) 11.9 - 15.5 g/dL YURI Comment:Testing performed by : [address] [address] Hct 34.0(L) 35.6 - 45.5 % YURI Comment:Testing performed by : [address] [address] Plt 262 150 - 400 K/cumm YURI Comment:Testing performed by : [address] [address] MPV 10.2 9.1 - 12.3 fL YURI Comment:Testing performed by : [address] [address] RBC 3.74(L) 3.90 - 5.20 M/cumm YURI Comment:Testing performed by : [address] [address] MCV 90.9 81.3 - 96.4 fL YURI Comment:Testing performed by : [address] [address] MCH 29.4 27.1 - 33.3 pg YURI WILLS Comment:Testing performed by : [address] [address] MCHC 32.4 32.3 - 35.7 g/dL YURI WILLS Comment:Testing performed by : [address] [address] RDW CV 13.2 11.1 - 14.9 % YURI WILLS Comment:Testing performed by : [address] [address] RDW SD 44.6 35.7 - 48.1 fL YURI WILLS Comment:Testing performed by : [address] [address] NRBC abs 0.00 0.00 - 0.01 K/cumm YURI WILLS Comment:Testing performed by : [address] [address] Blood 06/19/2024 6:30 AM CDT 06/19/2024 8:31 AM CDT us Notinfile Unknown LAB BLOOD ORDERABLES Final Res ult YURI [facility] Department of Laboratories [place], [place] [id number] * (ABNORMAL) Comprehensive metabolic panel (06/19/2024 6:30 AM CDT) Sodium 140 135 - 145 mmol/L YURI WILLS Comment:Testing performed by : [address] [address] Potassium, pl 3.7 3.3 - 4.9 mmol/L YURI WILLS Comment:Testing performed by : [address] [address] Chloride 104 97 - 110 mmol/L YURI WILLS Comment:Testing performed by : [address] [address] CO2 26 22 - 32 mmol/L YURI WILLS Comment:Testing performed by : [address] [address] Anion gap 10 2 - 15 mmol/L YURI WILLS Comment:Testing performed by : [address] [address] BUN 24 6 - 25 mg/dL YURI Comment:Testing performed by : [address] [address] Creatinine 1.06 0.60 - 1.10 mg/dL YURI Comment:Testing performed by : [address] [address] Glucose 123 70 - 199 mg/dL YURI [...] was last revised 2022. Testing performed by: [address] [address] Calcium 11.2(H) 8.5 - 10.3 mg/dL YURI Comment:Testing performed by : [address] [address] Bilirubin, total 0.4 0.1 - 1.2 mg/dL YURI Comment:Testing performed by : [address] [address] Protein, pl 7.1 6.5 - 8.5 g/dL YURI Comment:Testing performed by : [address] [address] Albumin 3.4(L) 3.5 - 5.0 g/dL YURI Comment:Testing performed by : [address] [address] Alk phos 73 40 - 130 Units/L YURI Comment:Testing performed by : [address] [address] ALT 16 7 - 45 Units/L YURI Comment:Testing performed by : [address] [address] AST 22 10 - 45 Units/L YURI WILLS Comment:Testing performed by : [facility], [address] [place]., [address] Blood 06/19/2024 6:30 AM CDT 06/19/2024 8:31 AM CDT us Notinfile Unknown LAB BLOOD ORDERABLES Final Res ult YURI WILLS [address] [facility] [place] [address] from Last 3 Months Insurance MEDICARE [employer] OOS MEDICARE BLUE ACCESS OOS [employer]PA Care Teams 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
--- OUTSIDE RECORDS SUMMARY | 2024-08-17 13:49 | XMS_ITS | Clinical Summary ---
Author Organization [facility] [address] Address [address] [place] [id number] Care Team Providers Care Bookie Name Role Phone No, Physician Primary Care Provider [phone] Allergies Active Allergy Reactions Criticality Noted Date [...] Description 06/19/2024 Orders Only [facility] Inter[facility] [phone] Unknown, Notinfile from Last 3 Months Surgical [...] on file Legal Sex Female 10:27 AM 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 Gender Identity Not on file Sexual Orientation Not on file Obstetrics History Last Filed Vital Signs Vital Sign Reading Time Taken Comments Blood Pressure 150/69 04/02/2024 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 Pulse 80 04/02/2024 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 Temperature 36.9 C (98.4 F) 04/02/2024 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 Respiratory Rate 18 04/02/2024 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 Oxygen Saturation 95% 04/02/2024 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 Inhaled Oxygen Concentration - - Weight 87.6 kg (193 lb 2 oz) 04/02/2024 10:49 AM 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 Height 162.6 cm (5' 4) 04/02/2024 10:49 AM 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 Body Mass Index 33.15 04/02/2024 10:49 AM 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 Plan of Treatment Health Maintenance Due Date Last Done Comments Depression Screening 1945 Hepatitis C Screening 1945 Osteoporosis Screening-Bone Density Scan 1944 DTaP/Tdap/Td Vaccine (1 - Tdap) 10/26/1955 Hepatitis B Screening 1962 Zoster Vaccine (1 of 2) 1994 Well Visit 65+ 2009 Covid-19 Vaccine (4 - 2023-2 5 season) 2023 12/09/2020, 05/13/2020, 04/22/2020 Influenza Vaccine (#1) 2024 , 10/31/2021, 10/28/2020, Additional history exists Fall Risk Assessment 03/13/2025 03/13/2024, 03/12/19 Pneumococcal vaccine 65+ Completed 12/20/2021, 10/12 Medical Devices Implanted Type Area Spectrograph Operator Device Identifier Shelf Expiration Date Model / Serial / Lot [employer]an Stent Ureteral Set Double Pigtail Tapered Tip Contour [id number] Hydroplus Coated [id number] - [id number] Implanted:Qty: 1 on 04/02/2024 by Bassem Narayan MD at [facility] Left: Ureter [employer] Rohan 12/01/2026 [id number] / / [id number] Explanted Type Area Spectrograph Operator Device Identifier Shelf Expiration Date Model / Serial / Lot [employer] Rohan Contour 7fr 24cm Large Inner Lumen Low Profile Bladder Sabino Taper Latex Free [id number] - [id number] Implanted:Qty: 1 on 03/12/2024 by Bassem Narayan MD at [facility] Explanted:Qty: 1 on 04/02/2024 at [facility] Left: Ureter [employer] Rohan 08/30/2025 [id number] / / [id number] Procedures Procedure Name Priority Date/Time Associated Diagnosis [...] Yellow Yellow YURI Comment:Testing performed by : [address] [address] Clarity, ur Clear Clear YURI Comment:Testing performed by : [address] [address] Specific gravity, ur 1.013 1.003 - 1.030 YURI Comment:Testing performed by : [address] [address] pH, urine 5.5 YURI Comment: Interpretive Data Urine pH is affected by diet, medications, systemic acid-base disturbances, and renal tubular function. pH may affect urinary stone formation. For example, urine pH below 6.0 may help reduce the tendency for calcium phosphate stones and pH greater than 6.0 may reduce the tendency for uric acid stone formation. Source: [facility] Current Interpretive Data was last revised on 2017 Testing performed by: [address] [address] Protein, ur ql Negative Negative YURI Comment:Testing performed by : [address] [address] Glucose, ur ql Negative Negative YURI Comment:Testing performed by : [address] [address] Ketones, ur Negative Negative YURI Comment:Testing performed by : [address] [address] Bilirubin, ur Negative Negative YURI Comment:Testing performed by : [facility], [address] [place] [address]., [address] Blood, ur Negative Negative YURI WILLS Comment:Testing performed by : [address] [address] Urobilinogen, ur <2.0 <2.0 mg/dL YURI WILLS Comment:Testing performed by : [address], [place]., [address] Nitrite, ur Negative Negative YURI Comment:Testing performed by : [address], [place]., [address] Leukocyte esterase, ur Negative Negative YURI Comment:Testing performed by : [address] [address] UA reflex comment Reflex conditions for microscopic UA not met. YURI Comment:Testing performed by : [address] [address] Urine 06/29/2024 9:00 AM CDT 06/29/2024 1:22 PM CDT us Notinfile Unknown LAB URINE ORDERABLES Final Res ult Performing Organization Address City/[facility]/ZIP Co de Phone Number YURI [address] [place] [address] * COVID-19 Coronavirus RNA Nasopharyngeal (06/29/2024 8:50 AM CDT) COVID-19 RNA Negative Negative YURI Comment:Testing performed by : [address] [address] Nasopharyngeal 06/29/2024 8: 50 AM CDT 06/29/2024 1:22 PM CDT us Notinfile Unknown LAB MICROBIOLOGY - GENERAL ORD ERABLES Final Result Performing Organization Address City/[facility]/ZIP Co de Phone Number YURI [address] [place] [address] * eGFR (06/29/2024 8:45 AM CDT) eGFR 65 >=60 mL/min/1. 73 m2 YURI WILLS Comment: [...] was last reviewed 2020. Testing performed by: [address] [address] Blood 06/29/2024 8:45 AM CDT 06/29/2024 1:22 PM CDT us Notinfile Unknown LAB BLOOD ORDERABLES Final Res ult YURI [address] [facility] Department of Laboratories [place], [place] [id number] * Differential, auto (06/29/2024 8:45 AM CDT) Pathologist [facility] Neutrophil abs 4.34 1.50 - 6.50 K/cumm YURI Comment:Testing performed by : [address] [address] Imm gran abs 0.07 0.00 - 0.10 K/cumm YURI WILLS Comment:Testing performed by : [address] [address] Lymphocyte abs 2.97 0.80 - 3.30 K/cumm YURI Comment:Testing performed by : [address] [address] Monocyte abs 0.49 0.20 - 0.80 K/cumm [facility] Comment:Testing performed by : [address] [address] Eosinophil abs 0.14 0.00 - 0.50 K/cumm [facility] Comment:Testing performed by : [address], [place]., [address] Basophil abs 0.05 0.00 - 0.10 K/cumm [facility] Comment:Testing performed by : [address] [address] Neutrophil pct 53.9 % [facility] Comment: Interpretive Data Percent cell count reference ranges are not reported, since discordance with absolute values may lead to misinterpretation of CBC data. Current Interpretive Data was last revised on 2017. Testing performed by: [address] [address] Imm gran pct 0.9 % [facility] Comment: Interpretive Data Percent cell count reference ranges are not reported, since discordance with absolute values may lead to misinterpretation of CBC data. Current Interpretive Data was last revised on 2017. Testing performed by: [address] [address] Lymphocyte pct 36.8 % [facility] Comment: Interpretive Data Percent cell count reference ranges are not reported, since discordance with absolute values may lead to misinterpretation of CBC data. Current Interpretive Data was last revised on 2017. Testing performed by: [address] [address] Monocyte pct 6.1 % [facility] Comment: Interpretive Data Percent cell count reference ranges are not reported, since discordance with absolute values may lead to misinterpretation of CBC data. Current Interpretive Data was last revised on 2017. Testing performed by: [address] [address] Eosinophil pct 1.7 % [facility] Comment: Interpretive Data Percent cell count reference ranges are not reported, since discordance with absolute values may lead to misinterpretation of CBC data. Current Interpretive Data was last revised on 2017. Testing performed by: [address] [place]., [address] Basophil pct 0.6 % YURI WILLS Comment: Interpretive Data Percent cell count reference ranges are not reported, since discordance with absolute values may lead to misinterpretation of CBC data. Current Interpretive Data was last revised on 2017. Testing performed by: [address] [address] Blood 06/29/2024 8:45 AM CDT 06/29/2024 1:22 PM CDT us Notinfile Unknown LAB BLOOD ORDERABLES Final Res ult YURI [address] [facility] Department of Laboratories [place], [place] [id number] * (ABNORMAL) CBC with auto differential (06/29/2024 8:45 AM CDT) WBC 8.06 3.80 - 9.90 K/cumm YURI WILLS Comment:Testing performed by : [address] [address] Hgb 12.4 11.9 - 15.5 g/dL YURI WILLS Comment:Testing performed by : [address] [address] Hct 38.8 35.6 - 45.5 % YURI WILLS Comment:Testing performed by : [address] [address] Plt 367 150 - 400 K/cumm YURI WILLS Comment:Testing performed by : [address] [address] MPV 10.6 9.1 - 12.3 fL YURI WILLS Comment:Testing performed by : [address] [address] RBC 4.27 3.90 - 5.20 M/cumm YURI WILLS Comment:Testing performed by : [address] [address] MCV 90.9 81.3 - 96.4 fL YURI WILLS Comment:Testing performed by : [address] [address] MCH 29.0 27.1 - 33.3 pg YURI WILLS Comment:Testing performed by : [address] [address] MCHC 32.0(L) 32.3 - 35.7 g/dL YURI WILLS Comment:Testing performed by : [address] [address] RDW CV 13.7 11.1 - 14.9 % YURI WILLS Comment:Testing performed by : [address] [address] RDW SD 45.7 35.7 - 48.1 fL YURI WILLS Comment:Testing performed by : [address] [address] NRBC abs 0.00 0.00 - 0.01 K/cumm YURI WILLS Comment:Testing performed by : [address] [address] Blood 06/29/2024 8:45 AM CDT 06/29/2024 1:22 PM CDT us Notinfile Unknown LAB BLOOD ORDERABLES Final Res ult YURI WILLS [facility] Department [place] [address] * (ABNORMAL) Comprehensive metabolic panel (06/29/2024 8:45 AM CDT) Sodium 138 135 - 145 mmol/L YURI WILLS Comment:Testing performed by : [address] [address] Potassium, pl 3.9 3.3 - 4.9 mmol/L YURI WILLS Comment: Hemolyzed; Potassium value may be falsely elevated by as much as 1.0 mmol/L. Suggest redraw and reanalysis. Testing performed by: [address] [address] Chloride 102 97 - 110 mmol/L YURI WILLS Comment:Testing performed by : [address] [address] CO2 22 22 - 32 mmol/L YURI Comment:Testing performed by : [address] [address] Anion gap 14 2 - 15 mmol/L YURI Comment:Testing performed by : [address] [address] BUN 23 6 - 25 mg/dL YURI Comment:Testing performed by : [address] [address] Creatinine 0.90 0.60 - 1.10 mg/dL YURI Comment:Testing performed by : [address] [address] Glucose 238(H) 70 - 199 mg/dL YURI [...] was last revised 2022. Testing performed by: [address] [address] Calcium 11.2(H) 8.5 - 10.3 mg/dL [facility] Comment:Testing performed by : [address] [address] Bilirubin, total 0.3 0.1 - 1.2 mg/dL [facility] Comment:Testing performed by : [address] [address] Protein, pl 7.4 6.5 - 8.5 g/dL YURI Comment:Testing performed by : [address] [address] Albumin 3.8 3.5 - 5.0 g/dL YURI Comment:Testing performed by : [address] [address] Alk phos 72 40 - 130 Units/L YURI WILLS Comment:Testing performed by : [address] [address] ALT 25 7 - 45 Units/L YURI WILLS Comment:Testing performed by : [address] [address] AST 23 10 - 45 Units/L YURI WILLS Comment:Testing performed by : [address] [address] Blood 06/29/2024 8:45 AM CDT 06/29/2024 1:22 PM CDT us Notinfile Unknown LAB BLOOD ORDERABLES Final Res ult YURI WILLS [address] [facility] Department [place] [address] * (ABNORMAL) eGFR (06/26/2024 6:17 AM CDT) [...] was last reviewed 2020. Testing performed by: [address] [address] Blood 06/26/2024 6:17 AM CDT 06/26/2024 8:28 AM CDT us Notinfile Unknown LAB BLOOD ORDERABLES Final Res ult YURI [address] [facility] Department [place] [address] * (ABNORMAL) Differential, auto (06/26/2024 6:17 AM CDT) Neutrophil abs 5.43 1.50 - 6.50 K/cumm YURI Comment:Testing performed by : [address] [address] Imm gran abs 0.28(H) 0.00 - 0.10 K/cumm YURI Comment:Testing performed by : [address] [address] Lymphocyte abs 4.08(H) 0.80 - 3.30 K/cumm YURI Comment:Testing performed by : [address] [address] Monocyte abs 0.60 0.20 - 0.80 K/cumm YURI Comment:Testing performed by : [address] [address] Eosinophil abs 0.18 0.00 - 0.50 K/cumm YURI Comment:Testing performed by : [address] [address] Basophil abs 0.08 0.00 - 0.10 K/cumm YURI Comment:Testing performed by : [address] [address] Neutrophil pct 51.0 % YURI Comment: Interpretive Data Percent cell count reference ranges are not reported, since discordance with absolute values may lead to misinterpretation of CBC data. Current Interpretive Data was last revised on 2017. Testing performed by: [address] [address] Imm gran pct 2.6 % YURI Comment: Interpretive Data Percent cell count reference ranges are not reported, since discordance with absolute values may lead to misinterpretation of CBC data. Current Interpretive Data was last revised on 2017. Testing performed by: [address] [address] Lymphocyte pct 38.3 % YURI Comment: Interpretive Data Percent cell count reference ranges are not reported, since discordance with absolute values may lead to misinterpretation of CBC data. Current Interpretive Data was last revised on 2017. Testing performed by: [address] [address] Monocyte pct 5.6 % YURI Comment: Interpretive Data Percent cell count reference ranges are not reported, since discordance with absolute values may lead to misinterpretation of CBC data. Current Interpretive Data was last revised on 2017. Testing performed by: [address] [address] Eosinophil pct 1.7 % YURI Comment: Interpretive Data Percent cell count reference ranges are not reported, since discordance with absolute values may lead to misinterpretation of CBC data. Current Interpretive Data was last revised on 2017. Testing performed by: [address] [address] Basophil pct 0.8 % YURI Comment: Interpretive Data Percent cell count reference ranges are not reported, since discordance with absolute values may lead to misinterpretation of CBC data. Current Interpretive Data was last revised on 2017. Testing performed by: [address] [address] Blood 06/26/2024 6:17 AM CDT 06/26/2024 8:28 AM CDT us Notinfile Unknown LAB BLOOD ORDERABLES Final Res ult [facility] [facility] Department [place] [address] * (ABNORMAL) CBC with auto differential (06/26/2024 6:17 AM CDT) WBC 10.65(H) 3.80 - 9.90 K/cumm YURI Comment:Testing performed by : [address] [address] Hgb 12.4 11.9 - 15.5 g/dL YURI Comment:Testing performed by : [address], [address] Hct 38.3 35.6 - 45.5 % YURI Comment:Testing performed by : [address] [address] Plt 416(H) 150 - 400 K/cumm YURI Comment:Testing performed by : [address] [address] MPV 10.0 9.1 - 12.3 fL YURI Comment:Testing performed by : [address], [address] RBC 4.17 3.90 - 5.20 M/cumm YURI Comment:Testing performed by : [address], [address] MCV 91.8 81.3 - 96.4 fL YURI Comment:Testing performed by : [address] [address] MCH 29.7 27.1 - 33.3 pg YURI Comment:Testing performed by : [address], [address] MCHC 32.4 32.3 - 35.7 g/dL YURI Comment:Testing performed by : [address], [address] RDW CV 13.7 11.1 - 14.9 % YURI Comment:Testing performed by : [address], [address] RDW SD 46.0 35.7 - 48.1 fL YURI Comment:Testing performed by : [address], [address] NRBC abs 0.00 0.00 - 0.01 K/cumm YURI Comment:Testing performed by : [address] [address] Blood 06/26/2024 6:17 AM CDT 06/26/2024 8:28 AM CDT us Notinfile Unknown LAB BLOOD ORDERABLES Final Res ult YURI [address] [facility] Department [place] [address] * (ABNORMAL) Basic metabolic panel (06/26/2024 6:17 AM CDT) Sodium 140 135 - 145 mmol/L YURI Comment:Testing performed by : [address] [address] Potassium, pl 4.4 3.3 - 4.9 mmol/L YURI Comment:Testing performed by : [address] [address] Chloride 104 97 - 110 mmol/L YURI Comment:Testing performed by : [address] [address] CO2 27 22 - 32 mmol/L YURI Comment:Testing performed by : [address] [address] Anion gap 9 2 - 15 mmol/L YURI Comment:Testing performed by : [address] [address] BUN 29(H) 6 - 25 mg/dL YURI Comment:Testing performed by : [address] [address] Creatinine 1.10 0.60 - 1.10 mg/dL YURI Comment:Testing performed by : [address] [address] Glucose 159 70 - 199 mg/dL YURI [...] was last revised 2022. Testing performed by: [address], [place]., [address] Calcium 11.7(H) 8.5 - 10.3 mg/dL YURI WILLS Comment:Testing performed by : [address] [address] Blood 06/26/2024 6:17 AM CDT 06/26/2024 8:28 AM CDT us Notinfile Unknown LAB BLOOD ORDERABLES Final Res ult Performing Organization Address [facility] Co de Phone Number YURI [address] [facility] Department [place] [address] * (ABNORMAL) eGFR (06/25/2024 6:07 [...] was last reviewed 2020. Testing performed by: [facility], [address] [place] [address]., [address] Blood 06/25/2024 6:07 AM CDT 06/25/2024 8:38 AM CDT us Notinfile Unknown LAB BLOOD ORDERABLES Final Res ult YURI WILLS [address] [facility] Department [place] [address] * (ABNORMAL) Differential, auto (06/25/2024 6:07 AM CDT) Neutrophil abs 5.39 1.50 - 6.50 K/cumm YURI Comment:Testing performed by : [address] [address] Imm gran abs 0.52(H) 0.00 - 0.10 K/cumm YURI Comment:Testing performed by : [address] [address] Lymphocyte abs 4.13(H) 0.80 - 3.30 K/cumm YURI Comment:Testing performed by : [address] [address] Monocyte abs 0.72 0.20 - 0.80 K/cumm YURI Comment:Testing performed by : [address] [address] Eosinophil abs 0.18 0.00 - 0.50 K/cumm YURI Comment:Testing performed by : [address] [address] Basophil abs 0.10 0.00 - 0.10 K/cumm YURI Comment:Testing performed by : [address] [address] Neutrophil pct 48.9 % YURI Comment: Interpretive Data Percent cell count reference ranges are not reported, since discordance with absolute values may lead to misinterpretation of CBC data. Current Interpretive Data was last revised on 2017. Testing performed by: [address] [address] Imm gran pct 4.7 % YURI Comment: Interpretive Data Percent cell count reference ranges are not reported, since discordance with absolute values may lead to misinterpretation of CBC data. Current Interpretive Data was last revised on 2017. Testing performed by: [address] [address] Lymphocyte pct 37.4 % YURI Comment: Interpretive Data Percent cell count reference ranges are not reported, since discordance with absolute values may lead to misinterpretation of CBC data. Current Interpretive Data was last revised on 2017. Testing performed by: [address] [address] Monocyte pct 6.5 % YURI Comment: Interpretive Data Percent cell count reference ranges are not reported, since discordance with absolute values may lead to misinterpretation of CBC data. Current Interpretive Data was last revised on 2017. Testing performed by: [address] [address] Eosinophil pct 1.6 % YURI Comment: Interpretive Data Percent cell count reference ranges are not reported, since discordance with absolute values may lead to misinterpretation of CBC data. Current Interpretive Data was last revised on 2017. Testing performed by: [address] [address] Basophil pct 0.9 % YURI Comment: Interpretive Data Percent cell count reference ranges are not reported, since discordance with absolute values may lead to misinterpretation of CBC data. Current Interpretive Data was last revised on 2017. Testing performed by: [address] [address] Blood 06/25/2024 6:07 AM CDT 06/25/2024 8:38 AM CDT us Notinfile Unknown LAB BLOOD ORDERABLES Final Res ult YURI [address] [facility] Department of Laboratories [place], [place] [id number] * (ABNORMAL) CBC with auto differential (06/25/2024 6:07 AM CDT) WBC 11.04(H) 3.80 - 9.90 K/cumm YURI WILLS Comment:Testing performed by : [address] [address] Hgb 12.1 11.9 - 15.5 g/dL YURI WILLS Comment:Testing performed by : [address] [address] Hct 37.2 35.6 - 45.5 % YURI WILLS Comment:Testing performed by : [address] [address] Plt 396 150 - 400 K/cumm YURI WILSL Comment:Testing performed by : [address] [address] MPV 10.1 9.1 - 12.3 fL YURI WILLS Comment:Testing performed by : [address] [address] RBC 4.07 3.90 - 5.20 M/cumm YURI WILLS Comment:Testing performed by : [address], [address] MCV 91.4 81.3 - 96.4 fL YURI Comment:Testing performed by : [address] [address] MCH 29.7 27.1 - 33.3 pg YURI WILLS Comment:Testing performed by : [address] [address] MCHC 32.5 32.3 - 35.7 g/dL YURI Comment:Testing performed by : [address] [address] RDW CV 13.4 11.1 - 14.9 % YURI Comment:Testing performed by : [address] [address] RDW SD 45.2 35.7 - 48.1 fL YURI Comment:Testing performed by : [address] [address] NRBC abs 0.00 0.00 - 0.01 K/cumm YURI Comment:Testing performed by : [address] [address] Blood 06/25/2024 6:07 AM CDT 06/25/2024 8:38 AM CDT us Notinfile Unknown LAB BLOOD ORDERABLES Final Res ult YURI WILLS [address] [facility] Department [place] [address] * (ABNORMAL) Comprehensive metabolic panel (06/25/2024 6:07 AM CDT) Sodium 141 135 - 145 mmol/L YURI Comment:Testing performed by : [address] [address] Potassium, pl 4.7 3.3 - 4.9 mmol/L YURI Comment:Testing performed by : [address] [address] Chloride 104 97 - 110 mmol/L YURI Comment:Testing performed by : [address], [place]., [address] CO2 29 22 - 32 mmol/L YURI Comment:Testing performed by : [address], [place]., [address] Anion gap 8 2 - 15 mmol/L YURI Comment:Testing performed by : [address] [address] BUN 32(H) 6 - 25 mg/dL YURI Comment:Testing performed by : [address], [place]., [address] Creatinine 1.30(H) 0.60 - 1.10 mg/dL YURI Comment:Testing performed by : [address] [address] Glucose 135 70 - 199 mg/dL YURI [...] was last revised 2022. Testing performed by: [address], [place]., [address] Calcium 11.8(H) 8.5 - 10.3 mg/dL YURI Comment:Testing performed by : [address] [address] Bilirubin, total 0.2 0.1 - 1.2 mg/dL YURI Comment:Testing performed by : [address] [address] Protein, pl 7.0 6.5 - 8.5 g/dL YURI Comment:Testing performed by : [address] [address] Albumin 3.6 3.5 - 5.0 g/dL YURI Comment:Testing performed by : [address], [place]., [address] Alk phos 70 40 - 130 Units/L YURI Comment:Testing performed by : [address] [address] ALT 34 7 - 45 Units/L YURI Comment:Testing performed by : [address] [address] AST 28 10 - 45 Units/L YURI Comment:Testing performed by : [address] [address] Blood 06/25/2024 6:07 AM CDT 06/25/2024 8:38 AM CDT us Notinfile Unknown LAB BLOOD ORDERABLES Final Res ult YURI [address] [facility] Department [place] [address] * (ABNORMAL) Basic metabolic panel (06/25/2024 6:07 AM CDT) Sodium 141 135 - 145 mmol/L YURI WILLS Comment:Testing performed by : [address] [address] Potassium, pl 4.7 3.3 - 4.9 mmol/L YURI WILLS Comment:Testing performed by : [address] [address] Chloride 104 97 - 110 mmol/L YURI Comment:Testing performed by : [address] [place] [address] CO2 29 22 - 32 mmol/L YURI Comment:Testing performed by : [address] [address] Anion gap 8 2 - 15 mmol/L YURI Comment:Testing performed by : [address] [address] BUN 32(H) 6 - 25 mg/dL YURI Comment:Testing performed by : [address] [address] Creatinine 1.30(H) 0.60 - 1.10 mg/dL YURI Comment:Testing performed by : [address] [address] Glucose 135 70 - 199 mg/dL YURI [...] was last revised 2022. Testing performed by: [address] [address] Calcium 11.8(H) 8.5 - 10.3 mg/dL YURI Comment:Testing performed by : [address] [address] Blood 06/25/2024 6:07 AM CDT 06/25/2024 8:38 AM CDT us Notinfile Unknown LAB BLOOD ORDERABLES Final Res ult LUISJIMY ELMA [address] [facility] Department [place] [address] * (ABNORMAL) eGFR (06/24/2024 6:10 AM CDT) [...] was last reviewed 2020. Testing performed by: [address] [address] Blood 06/24/2024 6:10 AM CDT 06/24/2024 8:23 AM CDT us Notinfile Unknown LAB BLOOD ORDERABLES Final Res ult YURI WILLS [address] [facility] Department of Laboratories [place], [place] [id number] * (ABNORMAL) Basic metabolic panel (06/24/2024 6:10 AM CDT) Pathologist [facility] Sodium 138 135 - 145 mmol/L YURI WILLS Comment:Testing performed by : [address] [address] Potassium, pl 4.3 3.3 - 4.9 mmol/L YURI WILLS Comment:Testing performed by : [address] [address] Chloride 102 97 - 110 mmol/L YURI WILLS Comment:Testing performed by : [address] [address] CO2 26 22 - 32 mmol/L YURI WILLS Comment:Testing performed by : [address] [address] Anion gap 10 2 - 15 mmol/L YURI WILLS Comment:Testing performed by : [address] [address] BUN 30(H) 6 - 25 mg/dL YURI WILLS Comment:Testing performed by : [address] [address] Creatinine 1.26(H) 0.60 - 1.10 mg/dL YURI WILLS Comment:Testing performed by : [address] [address] Glucose 128 70 - 199 mg/dL YURI WILLS Comment: Interpretive Data Fasting glucose >/= 126 [...] was last revised 2022. Testing performed by: [address] [address] Calcium 12.4(H) 8.5 - 10.3 mg/dL YURI WILLS Comment:Testing performed by : [address] [address] Blood 06/24/2024 6:10 AM CDT 06/24/2024 8:23 AM CDT us Notinfile Unknown LAB BLOOD ORDERABLES Final Res ult YURI WILLS [address] [facility] Department [place] [address] * (ABNORMAL) eGFR (06/22/2024 6:34 [...] was last reviewed 2020. Testing performed by: [address] [address] Blood 06/22/2024 6:34 AM CDT 06/22/2024 8:09 AM CDT us Notinfile Unknown LAB BLOOD ORDERABLES Final Res ult YURI [address] [facility] Department [place] [address] * (ABNORMAL) Differential, auto (06/22/2024 6:34 AM CDT) Neutrophil abs 4.82 1.50 - 6.50 K/cumm YURI Comment:Testing performed by : [address] [address] Imm gran abs 0.59(H) 0.00 - 0.10 K/cumm YURI Comment:Testing performed by : [address] [address] Lymphocyte abs 3.15 0.80 - 3.30 K/cumm YURI Comment:Testing performed by : [address] [address] Monocyte abs 0.61 0.20 - 0.80 K/cumm YURI Comment:Testing performed by : [address] [address] Eosinophil abs 0.17 0.00 - 0.50 K/cumm YURI Comment:Testing performed by : [address], [place]., [address] Basophil abs 0.08 0.00 - 0.10 K/cumm YURI Comment:Testing performed by : [address] [address] Neutrophil pct 51.2 % [facility] Comment: Interpretive Data Percent cell count reference ranges are not reported, since discordance with absolute values may lead to misinterpretation of CBC data. Current Interpretive Data was last revised on 2017. Testing performed by: [address] [address] Imm gran pct 6.3 % [facility] Comment: Interpretive Data Percent cell count reference ranges are not reported, since discordance with absolute values may lead to misinterpretation of CBC data. Current Interpretive Data was last revised on 2017. Testing performed by: [address] [address] Lymphocyte pct 33.4 % [facility] Comment: Interpretive Data Percent cell count reference ranges are not reported, since discordance with absolute values may lead to misinterpretation of CBC data. Current Interpretive Data was last revised on 2017. Testing performed by: [address] [address] Monocyte pct 6.5 % [facility] Comment: Interpretive Data Percent cell count reference ranges are not reported, since discordance with absolute values may lead to misinterpretation of CBC data. Current Interpretive Data was last revised on 2017. Testing performed by: [address] [address] Eosinophil pct 1.8 % [facility] Comment: Interpretive Data Percent cell count reference ranges are not reported, since discordance with absolute values may lead to misinterpretation of CBC data. Current Interpretive Data was last revised on 2017. Testing performed by: [address] [address] Basophil pct 0.8 % [facility] Comment: Interpretive Data Percent cell count reference ranges are not reported, since discordance with absolute values may lead to misinterpretation of CBC data. Current Interpretive Data was last revised on 2017. Testing performed by: [address] [address] Blood 06/22/2024 6:34 AM CDT 06/22/2024 8:09 AM CDT us Notinfile Unknown LAB BLOOD ORDERABLES Final Res ult YURI [address] [facility] Department [place] [address] * (ABNORMAL) CBC with auto differential (06/22/2024 6:34 AM CDT) WBC 9.42 3.80 - 9.90 K/cumm YURI Comment:Testing performed by : [address] [address] Hgb 11.7(L) 11.9 - 15.5 g/dL YURI Comment:Testing performed by : [address] [address] Hct 35.9 35.6 - 45.5 % YURI Comment:Testing performed by : [address] [address] Plt 367 150 - 400 K/cumm YURI Comment:Testing performed by : [address] [address] MPV 9.9 9.1 - 12.3 fL YURI Comment:Testing performed by : [address] [address] RBC 3.95 3.90 - 5.20 M/cumm YURI WILLS Comment:Testing performed by : [address] [address] MCV 90.9 81.3 - 96.4 fL YURI Comment:Testing performed by : [address] [address] MCH 29.6 27.1 - 33.3 pg YURI WILLS Comment:Testing performed by : [address] [address] MCHC 32.6 32.3 - 35.7 g/dL YURI WILLS Comment:Testing performed by : [facility], [address] [place] [address]., [address] RDW CV 13.3 11.1 - 14.9 % YURI WILLS Comment:Testing performed by : [address] [address] RDW SD 43.8 35.7 - 48.1 fL YURI WILLS Comment:Testing performed by : [address] [address] NRBC abs 0.00 0.00 - 0.01 K/cumm YURI WILLS Comment:Testing performed by : [address] [address] Blood 06/22/2024 6:34 AM CDT 06/22/2024 8:09 AM CDT us Notinfile Unknown LAB BLOOD ORDERABLES Final Res ult Performing Organization Address [facility] Co de Phone Number [address] [place] [address] * Vitamin D 25 hydroxy (06/22/2024 6:34 AM CDT) Vitamin D 25-OH 64.0 30.0 - 80.0 ng/mL YURI Blood 06/22/2024 6:34 AM CDT 06/22/2024 10:32 AM CDT us Notinfile Unknown LAB BLOOD ORDERABLES Final Res ult Performing Organization Address [facility] Co de Phone Number [address] [place] [address] * Magnesium (06/22/2024 6:34 AM CDT) Magnesium 1.7 1.4 - 2.5 mg/dL YURI WILLS Comment:Testing performed by : [address] [address] Blood 06/22/2024 6:34 AM CDT 06/22/2024 8:09 AM CDT us Notinfile Unknown LAB BLOOD ORDERABLES Final Res ult YURI [address] [facility] Department [place] [address] * (ABNORMAL) Basic metabolic panel (06/22/2024 6:34 AM CDT) Sodium 140 135 - 145 mmol/L YURI Comment:Testing performed by : [address] [address] Potassium, pl 4.1 3.3 - 4.9 mmol/L YURI Comment:Testing performed by : [address] [address] Chloride 105 97 - 110 mmol/L YURI Comment:Testing performed by : [address] [address] CO2 26 22 - 32 mmol/L YURI Comment:Testing performed by : [address] [address] Anion gap 9 2 - 15 mmol/L YURI Comment:Testing performed by : [address] [address] BUN 22 6 - 25 mg/dL YURI Comment:Testing performed by : [address] [address] Creatinine 1.15(H) 0.60 - 1.10 mg/dL YURI Comment:Testing performed by : [address] [address] Glucose 128 70 - 199 mg/dL YURI [...] was last revised 2022. Testing performed by: [facility], [address] [place] [address]., [address] Calcium 11.1(H) 8.5 - 10.3 mg/dL YURI WILLS Comment:Testing performed by : [address] [address] Blood 06/22/2024 6:34 AM CDT 06/22/2024 8:09 AM CDT us Notinfile Unknown LAB BLOOD ORDERABLES Final Res ult YURI WILLS [address] [facility] Department [place] [address] * (ABNORMAL) eGFR (06/19/2024 6:30 [...] of Race in Diagnosing Kidney Disease, JASN 202). The CKD-EPI equation should not be used for patients with unstable renal function and has not been validated in children and those over 70. Current interpretive data was last reviewed 2020. Testing performed by: [address] [address] Blood 06/19/2024 6:30 AM CDT 06/19/2024 8:31 AM CDT us Notinfile Unknown LAB BLOOD ORDERABLES Final Res ult YURI [address] [facility] Department [place] [address] * (ABNORMAL) Differential, auto (06/19/2024 6:30 AM CDT) Neutrophil abs 5.74 1.50 - 6.50 K/cumm YURI Comment:Testing performed by : [address] [address] Imm gran abs 0.10 0.00 - 0.10 K/cumm YURI Comment:Testing performed by : [address] [address] Lymphocyte abs 2.83 0.80 - 3.30 K/cumm YURI Comment:Testing performed by : [address] [address] Monocyte abs 1.06(H) 0.20 - 0.80 K/cumm YURI Comment:Testing performed by : [address] [address] Eosinophil abs 0.16 0.00 - 0.50 K/cumm YURI Comment:Testing performed by : [address] [address] Basophil abs 0.04 0.00 - 0.10 K/cumm YURI Comment:Testing performed by : [address] [address] Neutrophil pct 57.8 % YURI Comment: Interpretive Data Percent cell count reference ranges are not reported, since discordance with absolute values may lead to misinterpretation of CBC data. Current Interpretive Data was last revised on 2017. Testing performed by: [address] [address] Imm gran pct 1.0 % YURI Comment: Interpretive Data Percent cell count reference ranges are not reported, since discordance with absolute values may lead to misinterpretation of CBC data. Current Interpretive Data was last revised on 2017. Testing performed by: [address] [address] Lymphocyte pct 28.5 % YURI Comment: Interpretive Data Percent cell count reference ranges are not reported, since discordance with absolute values may lead to misinterpretation of CBC data. Current Interpretive Data was last revised on 2017. Testing performed by: [address] [address] Monocyte pct 10.7 % YURI Comment: Interpretive Data Percent cell count reference ranges are not reported, since discordance with absolute values may lead to misinterpretation of CBC data. Current Interpretive Data was last revised on 2017. Testing performed by: [address] [address] Eosinophil pct 1.6 % YURI Comment: Interpretive Data Percent cell count reference ranges are not reported, since discordance with absolute values may lead to misinterpretation of CBC data. Current Interpretive Data was last revised on 2017. Testing performed by: [address] [address] Basophil pct 0.4 % YURI Comment: Interpretive Data Percent cell count reference ranges are not reported, since discordance with absolute values may lead to misinterpretation of CBC data. Current Interpretive Data was last revised on 2017. Testing performed by: [address] [address] Blood 06/19/2024 6:30 AM CDT 06/19/2024 8:31 AM CDT us Notinfile Unknown LAB BLOOD ORDERABLES Final Res ult YURI WILLS [address] [facility] Department [place] [address] * (ABNORMAL) CBC with auto differential (06/19/2024 6:30 AM CDT) WBC 9.93(H) 3.80 - 9.90 K/cumm YURI WILLS Comment:Testing performed by : [address] [address] Hgb 11.0(L) 11.9 - 15.5 g/dL YURI Comment:Testing performed by : [address] [address] Hct 34.0(L) 35.6 - 45.5 % YURI Comment:Testing performed by : [address] [address] Plt 262 150 - 400 K/cumm YURI Comment:Testing performed by : [address] [address] MPV 10.2 9.1 - 12.3 fL YURI Comment:Testing performed by : [address] [address] RBC 3.74(L) 3.90 - 5.20 M/cumm YURI Comment:Testing performed by : [address] [address] MCV 90.9 81.3 - 96.4 fL YURI Comment:Testing performed by : [address] [address] MCH 29.4 27.1 - 33.3 pg YURI Comment:Testing performed by : [address] [address] MCHC 32.4 32.3 - 35.7 g/dL YURI Comment:Testing performed by : [address], [address] RDW CV 13.2 11.1 - 14.9 % YURI Comment:Testing performed by : [address] [address] RDW SD 44.6 35.7 - 48.1 fL YURI Comment:Testing performed by : [address] [address] NRBC abs 0.00 0.00 - 0.01 K/cumm YURI Comment:Testing performed by : [address] [address] Blood 06/19/2024 6:30 AM CDT 06/19/2024 8:31 AM CDT us Notinfile Unknown LAB BLOOD ORDERABLES Final Res ult YURI [address] [facility] Department [place] [address] * (ABNORMAL) Comprehensive metabolic panel (06/19/2024 6:30 AM CDT) Sodium 140 135 - 145 mmol/L YURI Comment:Testing performed by : [address] [address] Potassium, pl 3.7 3.3 - 4.9 mmol/L YURI Comment:Testing performed by : [address] [address] Chloride 104 97 - 110 mmol/L YURI Comment:Testing performed by : [address] [address] CO2 26 22 - 32 mmol/L YURI Comment:Testing performed by : [address] [address] Anion gap 10 2 - 15 mmol/L YURI Comment:Testing performed by : [address] [address] BUN 24 6 - 25 mg/dL YURI Comment:Testing performed by : [address] [address] Creatinine 1.06 0.60 - 1.10 mg/dL YURI Comment:Testing performed by : [address] [address] Glucose 123 70 - 199 mg/dL YURI [...] was last revised 2022. Testing performed by: [address] [address] Calcium 11.2(H) 8.5 - 10.3 mg/dL YURI Comment:Testing performed by : [address] [address] Bilirubin, total 0.4 0.1 - 1.2 mg/dL YURI Comment:Testing performed by : [address] [address] Protein, pl 7.1 6.5 - 8.5 g/dL YURI Comment:Testing performed by : [address] [address] Albumin 3.4(L) 3.5 - 5.0 g/dL YURI Comment:Testing performed by : [address] [address] Alk phos 73 40 - 130 Units/L YURI Comment:Testing performed by : [address] [address] ALT 16 7 - 45 Units/L YURI Comment:Testing performed by : [address] [address] AST 22 10 - 45 Units/L YURI Comment:Testing performed by : [address] [address] Blood 06/19/2024 6:30 AM CDT 06/19/2024 8:31 AM CDT us Notinfile Unknown LAB BLOOD ORDERABLES Final Res ult YURI [address] [facility] Department [place] [address] from Last 3 Months Insurance MEDICARE BLUE ACCESS OOS MEDICARE BLUE ACCESS OOS IDPA Care Teams Bookie Relationship 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
--- OUTSIDE RECORDS SUMMARY | 2024-08-17 13:49 | XMS_ITS | Continuity of Care Document ---
Author Organization [facility] Address [address] [place] [address] Phone Care Team Providers Care Traffic Rate Computer Name Role Phone Robbin Pratt MD Unavailable [...] Diagnoses Date Provider Providers Copied on Encounter [facility], [address] [place] [address], [address], [place] tel:[phone] [facility] right hip pain (chief complaint) Greater trochanteric bursitis of right hip 7 Tondeon Siegel. [address] [facility], [facility] [address], [place], [place], [id number], [place]. tel:[phone] Referring Provider: Twila Flores, [address], [place], [address]. tel:[phone] [facility], [address] [place] [address], [address], [place] tel:[phone] [place] [address] right hip pain (chief complaint) Greater trochanteric bursitis of right hip 6 Tonne Robbin. [address] [facility], [address], [place], [place], [id number], [place]. tel:[phone] Referring Provider: Twila Flores, [address], [place], [address]. tel:[phone] OFFICE/OUTPA TIENT VISIT, EST [facility], [address] [place] [address], [address], [place] tel:[phone] [place] [address] left shoulder pain (chief complaint) Impingement syndrome of left shoulderIncom plete tear of left rotator cuffOsteoarth ritis of left acromioclavic ular joint 6 No Information Referring Provider: Twila Flores, [address], [place], [address]. tel:[phone] [facility], [address] [place] [address], [address], [place] tel:[phone] [place] [address] right hip pain (chief complaint) Greater trochanteric bursitis of right hip 6 [place] Siegel. [address] [facility], [facility] [address], [place], [id number], [place]. tel:[phone] Referring Provider: Twila Flores, [address], [place], [address]. tel:[phone] OFFICE/OUTPA TIENT VISIT, [facility], [address] [place] [address], [address], tel:[phone] [facility] left shoulder pain (chief complaint) Left shoulder pain May-0 6 No Information Referring Provider: Twila Flores, [address], [place], [address]. tel:[phone] OFFICE/OUTPA TIENT VISIT, [facility], [address] [place] [address], [address], [place] tel:[phone] [facility] right knee pain (chief complaint) right hip pain (chief complaint) Localized osteoarthrosi s, lower legGreater trochanteric bursitis of right hip 5 Tondeon Siegel. [address] [facility], [facility] [address], [place], [id number], [place]. tel:[phone] Referring Provider: Twila Flores, [address], [place], [address]. tel:[phone] OFFICE/OUTPA TIENT VISIT, [facility], [address] [place] [address], [address], [place] tel:[phone] [facility] left shoulder pain (chief complaint) ObesityShould er pain 4 No Information Referring Provider: Twila Flores, [address], [place], [address]. tel:[phone] Family History Family Member Type Diagnosis Age At Onset Mother Problem (finding) cancer of colon (Cause Of ) Father Problem (finding) Diabetes mellitus Father Problem (finding) stroke Mother Problem (finding) hypertension Father Problem (finding) coronary arterioscleros is Brother Problem (finding) Diabetes mellitus Immunizations Vaccine Date Status Comments Influenza, seasonal, intrade rmal, preservative free(Fluzone Intraderm (PF) 27 mcg/0.1 mL Intradermal Syringe) administered Source: Other Provi tara Pneumo (2 yrs or older) (PPV23) administe red Source: Other Provider Payers Payer name Insurance type Covered constitution party ID Authoriza tion(s) Medicare [place] [employer] Admin [id number] [facility] P BL [id number] Social History Type Description Quantity Date Captured [...] Kn ees X-ray, Bilateral (Standing, AP view) (77026), Sent on: Sent Future Order: Radiology Order Sh oulder X-ray; Complete (2+ views) ([id number]), Sent on: Sent History Of Present Illness [...] previous MRI. The MRI was performed at [facility] on 05/25/2015 of the left shoulder. Katalina [...]
--- OUTSIDE RECORDS SUMMARY | 2024-08-17 13:49 | XMS_ITS | Clinical Summary ---
Author Organization [facility] Address [address] [place] [id number] Care Team Providers Care Fudger Name Role Phone Unavailable Primary Care Provider [...]
== END 2024-08-17 13:46 | disposition home or self-care (01) ==
PROVIDERS: PCP Internal Medicine; Visit Provider Urology
DX: K44.9 Diaphragmatic hernia without obstruction or gangrene (principal); Z90.5 Acquired absence of kidney; N20.0 Calculus of kidney
CPT/HCPCS: 74176